=== PATIENT | female | born 1940 | race Caucasian/White ===

== ENCOUNTER 2017-05-30 18:33 | Emergency (ER) | payer MEDICARE, OTHER ==
[2017-05-30 18:43] VITALS: BP 127/74
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
--- NOTE | 2017-05-30 19:59 | RAD ---
Indication: Fall, neck pain. CT of the cervical spine was obtained in the axial plane. Sagittal and coronal reconstructed images were obtained. The skull base to restrict mastoid air cells and middle ear cavity to be well aerated. No fracture is noted. At C2-C3, C3-C4 there is no fracture. There is degenerative changes of the facet joints bilaterally at C3-C4. At C4-C5 minimal grade 1 spondylolisthesis is noted. Marked left facet hypertrophy is noted with left foraminal stenosis. C5-C6 spondylitic ridge flattens the thecal sac. No central or foraminal stenosis is noted. At C6-C7 spondylitic ridge flattens the thecal sac. No central foraminal stenosis is noted. At C7-T1 and T1-T2 no disc protrusion is identified. The lung apices are unremarkable. IMPRESSION: Multilevel degenerative disc disease without definite evidence of fracture.
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
== END 2017-05-30 20:40 | disposition home or self-care (01) ==
LOC: UCEAST 18:33
DX: H93.92 Unspecified disorder of left ear (principal); V89.2XXA Person injured in unspecified motor-vehicle accident, traffic, initial encounter; G20 Parkinson's disease
CPT/HCPCS: 70450; 71020; 72125; 99211; G0463

== ENCOUNTER 2019-12-03 16:03 | Inpatient (IN) | payer MEDICARE, OTHER ==
--- NOTE | 2019-12-03 16:20 | ED ---
Complex/Multi-Sys Presentation - HPI Summary HPI Summary: 79 year old F presenting to [facility] with a chief complaint of being on the floor secondary to a fall since possibly 3 days ago. The patient rates the pain 0/10 in severity. Symptoms aggravated by nothing. Symptoms alleviated by nothing. Patient denies any headache, back pain, abdominal pain, vomiting, diarrhea, or dysuria. The patient does not remember falling. Medication list reviewed. Allergy list reviewed. - History Of Current Complaint Time Seen by Provider: 12/03/19 16:08 Hx Obtained From: Patient Onset/Duration: Sudden Onset Timing: Days Aggravating Factor(s): None Alleviating Factor(s): None Associated Signs And Symptoms: Negative: Headache, Vomiting, Diarrhea, Abdominal Pain, Back Pain, Dysuria - Allergies/Home Medications Allergies/Adverse Reactions: Allergies Allergy/AdvReac Type Severity Reaction Status Date / Time No Known Allergies Allergy Verified 05/30/17 18:41 Home Medications: Home Medications Atenolol TAB* [Tenormin TAB*] 25 mg PO QPM 07/13/12 [History Confirmed 12/03/19] amLODIPine TAB* [Norvasc TAB*] 5 mg PO QPM 07/13/12 [History Confirmed 12/03/19] Amitriptyline TAB* [Elavil TAB*] 25 mg PO BEDTIME 12/03/19 [History Confirmed ] Carbidopa/Levodop 25/100 MG(*) [Sinemet 25/100 TAB(*)] 1.5 tab PO TID 12/03/19 [ History Confirmed 12/03/19] Pregabalin 100 mg CAP (*) [Lyrica 100 mg CAP (*)] 100 mg PO BEDTIME 12/03/19 [ History Confirmed 12/03/19] Pregabalin [Lyrica] 75 mg PO BID 12/03/19 [History Confirmed 12/03/19] carBAMazepine TAB(*) [TEGretol TAB(*)] 200 mg PO BID 12/03/19 [History Confirmed 12/03/19] PMH/Surg Hx/FS Hx/Imm Hx Endocrine/Hematology History: Denies: Hx Diabetes Cardiovascular History: Reports: Hx Hypertension - ON DAILY MED Denies: Hx Pacemaker/ICD Respiratory History: Denies: Hx Asthma History: Denies: Hx Dialysis, Hx Renal Disease Musculoskeletal History: Reports: Hx Arthritis - BRUNO KNEES, Hx Bursitis - R KNEE Denies: Hx Osteoporosis Sensory History: Reports: Hx Contacts or Glasses - GLASSES Denies: Hx Hearing Aid Opthamlomology History: Reports: Hx Contacts or Glasses - GLASSES Neurological History: Reports: Other Neuro Impairments/Disorders - Parkinson's Psychiatric History: Denies: Hx Panic Disorder - Cancer History Hx Chemotherapy: No Hx Radiation Therapy: No - Surgical History Surgical History: Yes Surgery Procedure, Year, and Place: 1941 [facility]SILECTOMY [facility]. 1962 [place]. 1987 TOTAL HYSTERECTOMY [facility]. 1989 CARPAL TUNNEL R WRIST [facility]. JUL 2012 CATARACT. 2005 GROWTH REMOVED FROM EYE LID [facility] Hx Anesthesia Reactions: No - Family History Known Family History: Positive: Hypertension - Social History Alcohol Use: Rare Hx Substance Use: No Substance Use Type: Reports: None Hx Tobacco Use: No Smoking Status (MU): Never Smoked Tobacco Review of Systems Negative: Abdominal Pain, Vomiting, Diarrhea Negative: dysuria Musculoskeletal: Negative - Back pain Negative: Headache All Other Systems Reviewed And Are Negative: Yes Physical Exam - Summary Physical Exam Summary: Constitutional: Awake, no acute distress Skin: Multiple bruises over upper chest and left shoulder, pressure sores bilateral knees and pretibial region. HENT: Normocephalic; Atraumatic Eyes: Conjunctiva normal Neck: Musculoskeletal ROM normal neck. (-) JVD, (-) Stridor, (-) Tracheal deviation Cardio: Rhythm regular, rate normal, Heart sounds normal; Intact distal pulses; The pedal pulses are 2+ and symmetric. Radial pulses are 2+ and symmetric. (-) Murmur Pulmonary/Chest wall: Effort normal. (-) Respiratory distress, (-) Wheezes, (-) Rales Abd: Soft, (-) tenderness, (-) Distension, (-) Guarding, (-) Rebound Musculoskeletal: (-) Edema Lymph: (-) Cervical adenopathy Neuro: Alert, Oriented x2, no focal deficits, GCS 15 Psych: Mood and affect Normal Triage Information Reviewed: Yes Vital Signs Reviewed: Yes - Jaspal Coma Scale Best Eye Response: 4 - Spontaneous Best Motor Response: 6 - Obeys Commands Best Verbal Response: 5 - Oriented Coma Scale Total: 15 Procedures - Sedation Patient Received Moderate/Deep Sedation with Procedure: No Diagnostics - Laboratory Result Diagrams: 12/03/19 16:36 12/03/19 16:36 Lab Statement: Any lab studies that have been ordered have been reviewed, and results considered in the medical decision making process. - Radiology Chest x-ray Radiology Interpretation Completed By: ED Physician Summary of Radiographic Findings: NAD. ED physician has reviewed and interpreted this report. - CT Brain CT CT Interpretation Completed By: Radiologist Summary of CT Findings: 1. Stable calcified dural-based mass along the inferior aspect of the left. tentorium cerebella measuring a maximum of 1.6 cm, likely calcified meningioma. 2. There is stable age-related diffuse cerebral volume loss and chronic. microvascular ischemic disease. 3. No acute intracranial pathology. ED physician has reviewed this report. Cervical Spine CT CT Interpretation Completed By: Radiologist Summary of CT Findings: No acute cervical spine fracture or other acute traumatic CT pathology. ED physician has reviewed this report. - EKG 16:58 Cardiac Rate: NL - 88 BPM EKG Rhythm: Sinus Rhythm Summary of EKG Findings: No ischemic changes, QTc 569. Dr. Valentine has reviewed and interpreted this EKG. Complex Multi-Symp Course/Dx Course Of Treatment: 79 year old F presenting to [facility] with a chief complaint of being on the floor secondary to a fall since possibly 3 days ago. Physical exam findings: Awake, no acute distress, no focal deficits, A&O x2, GCS 15, multiple bruises over upper chest and left shoulder, pressure sores bilateral knees and pretibial region. An EKG reveals sinus rhythm rate of 88, no ischemic changes, QTc 569. CXR reveals, per ED physician, NAD. Brain CT reveals, per radiologist, 1. Stable calcified dural-based mass along the inferior aspect of the left tentorium cerebella measuring a maximum of 1.6 cm, likely calcified meningioma. 2. There is stable age-related diffuse cerebral volume loss and chronic microvascular ischemic disease. 3. No acute intracranial pathology. Cervical Spine CT reveals, per radiologist, no acute cervical spine fracture or other acute traumatic CT pathology. Laboratory results with no significant abnormalities except for a WBC of 13.8, RBC of 4.95, Hgb of 16.5, Hct of 48, MCH of 33, absolute neuts of 11.6, absolute monos of 1.2, sodium of 146, BUN of 44, BUN/creatinine ratio of 48.4, glucose of 138, AST of 75, ALT of 56, total creatinine kinase of 1628, carbamazepine of 2.3. In the ED course, the patient was given normal saline. We discussed patient care with Dr. Mckenzie at 18:35 who recommended admission. Patient will be admitted. The patient is agreeable with this plan. - Diagnoses Provider Diagnoses: Fall, Dehydration, Rhabdomyolysis - Physician Notifications Discussed Care Of Patient With: Camille Mckenzie Time Discussed With Above Provider: 18:35 Instructed by Provider To: Other - Discussed with Dr. Mckenzie who accepts the patient for admission. - Critical Care Time Critical Care Statement: Critical care time is provided exclusive of any time spent performing procedures. Discharge ED - Sign-Out/Discharge Documenting (check all that apply): Patient Departure - Discharge Plan Condition: Stable Disposition: ADMITTED TO [facility] Referrals: Nohelia Mcdonald MD [Primary Care Provider] - - Billing Disposition and Condition Condition: STABLE Disposition: Admitted to [facility] - Attestation Statements Document Initiated by Scribe: Yes Documenting Scribe: Rekha Ramirez Provider For Whom Scribe is Documenting (Include Credential): Reed Valentine DO Scribe Attestation: Rekha eLwis scribed for Reed Valentine DO on 12/03/19 at 1914. Scribe Documentation Reviewed: Yes Provider Attestation: The documentation as recorded by the beatrisibeRekha accurately reflects the service I personally performed and the decisions made by me, Reed Valentine DO Status of Scribe Document: Viewed
[2019-12-03] MEDS ORDERED: NS 0.9% 1000 ML** 1,000 ML IV ONE ×2 (16:22→16:50)
[2019-12-03 16:42] LABS: ABS Basophils 0.1 10^3/ul (0-0.2); ABS Monocytes 1.2 10^3/ul (0-0.8); ABS Neutrophils 11.6 10^3/ul (1.5-7.7); Hematocrit 48 % (35-47); Hemoglobin 16.5 g/dL (12.0-16.0); Lymphocyte % 7.1 %; Mean Corpuscular HGB Conc 35 g/dL (31-36); Mean Corpuscular Hemoglobin 33 pg (27-31); Mean Corpuscular Volume 96 fL (80-97); Mean Platelet Volume 7.9 fL (7.4-10.4); Nucleated Red Blood Cells % 0.1; Platelet Count 260 10^3/uL (150-450); Red Blood Count 4.95 10^6 /uL (3.70-4.87); Red Cell Distribution Width 14 % (10-15); White Blood Count 13.8 10^3/uL (3.5-10.8)
[2019-12-03 16:59] LABS: Albumin 4.2 g/dL (3.2-5.2); Albumin/Globulin Ratio 1.2 (1-3); BUN/Creatinine Ratio 48.4 (8-20); Calcium 9.7 mg/dL (8.6-10.3); EGFR Non-African American 59.5 (>60); Globulin 3.4 g/dL (2-4); Total Protein 7.6 g/dL (6.4-8.9)
[2019-12-03 17:00] LABS: Troponin I 0.02 ng/mL (<0.03)
[2019-12-03 17:05] LABS: Carbamazepine 2.3 mcg/mL (4.0-12.0)
[2019-12-03 17:14] LABS: Alcohol < 10 mg/dL (<10)
[2019-12-03 17:50] LABS: Magnesium 2.5 mg/dL (1.9-2.7)
[2019-12-03 19:13] LABS: Urine Appearance Cloudy; Urine Bilirubin Negative (Negative); Urine Blood 2+ (Negative); Urine Color Amber; Urine Glucose Negative (Negative); Urine Ketones 1+ (Negative); Urine Nitrite Positive (Negative); Urine Protein 1+(30 mg/dL) (Negative); Urine Specific Gravity 1.024 (1.010-1.030); Urine Urobilinogen Negative (Negative)
[2019-12-03 19:17] LABS: Urine Bacteria 3+ (Absent); Urine Red Blood Cell 3+(>10/hpf) (Absent); Urine Squamous Epithelial Cell Present (Absent); Urine White Blood Cell 3+(>20/hpf) (Absent)
[2019-12-03] MEDS ORDERED: Acetaminophen TAB* 325 MG PO PRN (19:20)
[2019-12-03] MEDS ORDERED: NS 0.9% 1000 ML** 1,000 ML IV SCH (19:30)
[2019-12-03] MEDS ORDERED: cefTRIAXone(*) 1 GM in NS 0.9% 50 ML* 50 ML IVPB ONE (20:00)
--- NOTE | 2019-12-03 22:01 | HP ---
CC: Dr. Nohelia Mcdonald* HISTORY AND PHYSICAL: DATE OF ADMISSION: 12/03/19 PROVIDER: Deneen Onofre NP PRIMARY CARE PROVIDER: Nohelia Mcdonald MD ATTENDING PHYSICIAN WHILE IN THE HOSPITAL: Obie Zazueta MD* (dictated by Deneen Onofre NP). CHIEF COMPLAINT: 1. Falls. 2. Confusion. HISTORY OF PRESENT ILLNESS: Ms. Pritchard is an 79-year-old female with past medical history significant for Parkinson's, hypertension, periodic confusion, extremity pain who presented to the emergency room by EMS after being found on the floor of her apartment. The patient is confused and a very poor historian. In review of the emergency room records, the patient was last seen on Tuesday by her son and it is unclear how long the patient was on the floor. The patient does report that she fell Tuesday afternoon and has been on the floor since. I did speak to the son in great length. He reports that he last saw his mom Tuesday. At that time, she did not have any evidence of bruising that he could tell. He reports that the patient's daughter talked to her Tuesday at 3:10. The patient at that time said that she was tired and will call her back later. The daughter tried to call again at approximately 5 p.m., but there was no answer. The son does report that the patient was down lying in a fair amount of urine that had soaked into the carpet. When he arrived to the apartment, it was in disarray. There were multiple items, stands and tables that were tipped over. He reports that the patient kept telling him that he needed to get in the yellow carriage and everything would be okay. The son also reports the patient kept calling him Nohelia. I saw and evaluated the patient at the bedside. She is alert. She does have periods of confusion. She denies any chest pain, cough, hemoptysis, shortness of breath. No nausea, vomiting, diarrhea, abdominal pain, gross hematuria, dysuria. She denies any weakness or dysphagia. She has no complaints of pain. While in the emergency room, she had routine lab work drawn. She was found to have a CK of 1628 and a white count of 13.8; urine which is highly suspicious for urinary tract infection. Due to these findings, Hospital Medicine was asked to see and evaluate her for admission. PAST MEDICAL HISTORY: Significant for: 1. Parkinson disease. 2. Hypertension. 3. Periodic confusion. 4. Extremity pain. PAST SURGICAL HISTORY: Obtain from unknown if patient had other surgeries. 1. Hysterectomy. 2. Carpal tunnel surgery. Any other surgeries, the son does not know. HOME MEDICATIONS: Include: 1. Lyrica 75 mg b.i.d., 100 mg at bedtime. 2. Tegretol 200 mg once daily, was supposed to increase to b.i.d. on 11/23/19, unclear if the patient did. 3. Carbidopa/levodopa 25/100 one tablet t.i.d. 4. Amitriptyline 20 mg at bedtime. 5. Norvasc 5 mg po daily 6. Atenolol 25 mg po daily ALLERGIES: To TRAMADOL. FAMILY HISTORY: No reported history of coronary artery disease, diabetes, or cancer. SOCIAL HISTORY: Denies any tobacco, alcohol, or illicit drug use. The patient lives alone. She walks with a walker. Surrogate decision maker in the event she is unable to make her own decisions is her son, Isma. She is a DNR/DNI. Her MOLST form was completed and placed on the chart. REVIEW OF SYSTEMS: A 14-point review of systems was completed. All pertinent positives were mentioned in the HPI. This is a limited review of systems as the patient does have some underlying confusion. PHYSICAL EXAMINATION GENERAL: At this time, Ms. Pritchard is alert. She is resting on the stretcher in the emergency room. She appears dehydrated with multiple areas of ecchymosis and abrasions. She is in no acute distress. VITAL SIGNS: Blood pressure 151/82, heart rate 86, respirations are 22, O2 saturation 94%, temperature was 97.9. HEENT: Head is atraumatic, normocephalic. Eyes: EOMs are intact. Sclerae anicteric and not pale. Oral mucosa is moist. NECK: Supple. LUNGS: Clear to auscultation bilaterally. No wheezes, rales, or rhonchi. CARDIAC: S1, S2. Regular rate and rhythm. No rubs or gallops. ABDOMEN: Soft and nontender. Bowel sounds are present x4. EXTREMITIES: She is able to move all 4 extremities. There is no clubbing or cyanosis. NEUROLOGIC: She is awake and alert. She is oriented to person and place. She is confused to situation and time. She is noted to have footdrop on the left. Handgrips are equal. There is no pronator drift. No leg drift. Tongue is midline. SKIN: She has multiple ecchymotic areas noted to all 4 extremities with multiple abrasions. She does have redness noted to her lower back. No open sores on her coccyx. She has multiple abrasions on her right arm. She has ecchymosis on her left forehead. DIAGNOSTIC STUDIES/LAB DATA: WBCs are 13.8, RBCs 4.95, hemoglobin 16.5, hematocrit is 48, platelet count is 260. Sodium 146, potassium 4.0, chloride 109, carbon dioxide was 28, anion gap was 9, BUN was 44, creatinine 0.91, glucose was 138, calcium 9.7, magnesium 2.5. Total bilirubin 1.00, ASTs were 75 , ALTs were 56, alkaline phosphatase was 61. Total CK is 1628. Urine protein was 1+, ketones are 1+, blood is 2+, nitrites are positive, bilirubin and urobilinogen were both negative, leukocyte esterase is 1+, wbc's are 3+, rbc's are 3+, squamous epithelial cells are present, bacteria was 3+. Urine carbamazepine was 2.3. Serum alcohol was less than 10. 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 There is a stable age-related diffuse cerebral volume loss and chronic microvascular ischemic disease. No acute intracranial pathology. She had a CT of the C-spine, no acute cervical spine fracture or other acute traumatic CT pathology. She had an electrocardiogram Sinus rhythm rate 88. ASSESSMENT AND PLAN: Ms. Pritchard is an 79-year-old female with a past medical history significant for Parkinson's, hypertension, periodic confusion, and chronic extremity pain who presented to the emergency room after being found on the floor for an unknown time. She will be admitted for: 1. Rhabdomyolysis. The patient does have a CK that is 1628. She did receive 2 L of normal saline in the emergency room. It is unclear how long the patient had been lying on the floor. The patient reports that she fell Tuesday afternoon, but son reports that she did talk to her daughter on Tuesday afternoon at approximately 3 o'clock. The patient does have multiple ecchymotic areas in different staging as well as multiple abrasions to her knees and right arm that appear to be from scooting on the floor. The son does report that she was found lying in a large amount of urine that had soaked into the rug. She did have a CT of the head and C-spine that showed no acute pathology. I will get a PT and OT evaluation. 2. Fall. The patient has multiple causes of her fall. At this time it is unclear the cause of her fall. It could be related to mechanical fall from her underlying parkinson's, syncope, medications changes, polypharmacy or UTI, I suspect her fall is likely related to underlying Parkinson disease complicated by UTI. I will get a PT and OT evaluation. 3. Urinary tract infection. The patient does appear to have a urinary tract infection. She does have 3+ bacteria and nitrites in her urine as well as rbc' s and wbc's. I will place her on ceftriaxone 1 g q.24 hours. I will also continue with IV hydration. I suspect that this could be contributing to her falls as well. 4. Dehydration. She appears for be very dehydrated, as evidence by hypernatremia, and hemoconcentrated CBC. I will give her 2 more liters of IVF fluids. Repeat cbc and bmp in the AM. 5. Parkinson's. I will continue on carbidopa/levodopa. 6. Leg pain. I will continue her Lyrica and Tegretol starting tomorrow. 7. Hypertension. It appears that the patient is not taking her antihypertensive medications at home. I will hold on resuming these as the patient has not filled her atenolol or amlodipine since April 2019. 8. FEN. She can have regular diet. 9. Code status. She is a DNR/DNI. MOLST form is completed and placed on the chart. The patient expressed her wish to be a DNR. This was confirmed with her son, Isma, who also confirmed that she wishes to be a DNR/DNI. 10. DVT prophylaxis. I will place her on Lovenox subcu. TIME SPENT: Time spent on this admission was 60 minutes, greater than half that time was spent at the bedside reviewing events leading thus far to her hospitalization, performing physical exam, and reviewing my plan of care. I have discussed this with my attending, Dr. Obie Zazueta; he is in agreement with my plan. DENEEN ONOFRE, LUIS ANGEL [id number]/CPS #: [id number] EDIN
[2019-12-03] MEDS: Pregabalin 25 mg CAP (*) PO SCH (22:59)
[2019-12-03] MEDS: Carbidopa/Levodop 25/100 MG TAB(*) PO SCH (23:00)
[2019-12-03] MEDS: Lactated Ringers 1000 ML Bag* 1,000 ML IV SCH (23:05)
[2019-12-04] MEDS: Lactated Ringers 1000 ML Bag* 1,000 ML IV SCH (06:02)
[2019-12-04 07:12] LABS: ABS Lymphocytes 1.5 10^3/ul (1.0-4.8); ABS Monocytes 0.9 10^3/ul (0-0.8); ABS Neutrophils 6.8 10^3/ul (1.5-7.7); Eosinophil % 0.1 %; Hematocrit 39 % (35-47); Hemoglobin 13.3 g/dL (12.0-16.0); Lymphocyte % 16.2 %; Mean Corpuscular HGB Conc 34 g/dL (31-36); Mean Corpuscular Hemoglobin 33 pg (27-31); Mean Corpuscular Volume 96 fL (80-97); Mean Platelet Volume 8.1 fL (7.4-10.4); Platelet Count 208 10^3/uL (150-450); Red Cell Distribution Width 14 % (10-15); White Blood Count 9.2 10^3/uL (3.5-10.8)
[2019-12-04 07:26] LABS: BUN/Creatinine Ratio 42.4 (8-20); Calcium 8.5 mg/dL (8.6-10.3); EGFR African American 118.7 (>60); EGFR Non-African American 98.1 (>60); Potassium 3.3 mmol/L (3.5-5.0)
[2019-12-04] MEDS: Pregabalin 25 mg CAP (*) PO SCH ×2 (08:21→20:25)
[2019-12-04] MEDS: carBAMazepine TAB(*) 200 MG PO SCH (08:21)
[2019-12-04] MEDS: Carbidopa/Levodop 25/100 MG TAB(*) PO SCH ×3 (08:21→20:24)
--- NOTE | 2019-12-04 09:12 | PN ---
Subjective Date of Service: 12/04/19 Interval History: Elderly woman alert and oriented. Pt easily recalls why she is in the hospital. pt denies any in abdomen. Denies any pain with urination. Pt denies headaches, CP, SOB, N/V/D. Family History: Unchanged from Admission Social History: Unchanged from Admission Past Medical History: Unchanged from Admission Objective Active Medications: Acetaminophen (Tylenol Tab*) 650 mg PO Q6H PRN PRN Reason: MILD PAIN or TEMP > 100.4 Amitriptyline HCl (Elavil Tab*) 20 mg PO BEDTIME [facility] Carbamazepine (Tegretol Tab(*)) 200 mg PO DAILY [facility] Last Admin: 12/04/19 08:21 Dose: 200 mg Carbidopa/Levodopa (Sinemet 25/100 Tab(*)) 1.5 tab PO TID [facility] Last Admin: 12/04/19 08:21 Dose: 1.5 tab Ceftriaxone Sodium 1 gm/ (Sodium Chloride) 50 mls @ 100 mls/hr IVPB Q24H [facility] Lactated Ringer's (Lactated Ringers 1000 Ml Bag*) 1,000 mls @ 150 mls/hr IV PER RATE [facility] Stop: 12/05/19 03:39 Last Admin: 12/04/19 06:02 Dose: 150 mls/hr Pregabalin (Lyrica 25 Mg Cap (*)) 75 mg PO BID [facility] Last Admin: 12/04/19 08:21 Dose: 75 mg Pregabalin (Lyrica 100 Mg Cap (*)) 100 mg PO BEDTIME [facility] Vital Signs - 8 hr 12/04/19 12/04/19 12/04/19 02:09 02:59 07:27 Temperature 97.5 F 97.7 F Pulse Rate 75 74 Respiratory 20 16 16 Rate Blood Pressure 137/72 147/70 (mmHg) O2 Sat by Pulse 99 97 Oximetry 12/04/19 08:21 Temperature Pulse Rate Respiratory 18 Rate Blood Pressure (mmHg) O2 Sat by Pulse Oximetry Oxygen Devices in Use Now: None Appearance: Elderly woman appearing stated age sitting up in bed eating breakfast and watching TV. Does not appear to be in any distress. Eyes: No Scleral Icterus, PERRLA Ears/Nose/Mouth/Throat: NL Teeth, Lips, Gums, Clear Oropharnyx, Mucous Membranes Moist, - - Does not have dentures in hospital Neck: NL Appearance and Movements; NL JVP, Trachea Midline, No Thyroid Enlargement, Masses Respiratory: Symmetrical Chest Expansion and Respiratory Effort, Clear to Auscultation Cardiovascular: NL Sounds; No Murmurs; No JVD, RRR, No Edema Abdominal: NL Sounds; No Tenderness; No Distention, No Hepatosplenomegaly, - - No CVA tenderness Lymphatic: No Cervical Adenopathy Extremities: No Clubbing, Cyanosis Skin: No Rash or Ulcers, No Nodules or Sclerosis Neurological: Alert and Oriented x 3, NL Sensation, NL Muscle Strength and Tone Lines/Tubes/Other Access: Clean, Dry and Intact Peripheral IV Nutrition: Taking PO's Result Diagrams: 12/04/19 07:01 12/04/19 07:01 Assess/Plan/Problems-Billing Assessment: 79 Yof patient with hx significant for Parkinsons, HTN, and Periodic confusion presents to ED S/P fall with unknown downtime and confusion. - Patient Problems (1) UTI (urinary tract infection) Current Visit: Yes Comment: -UA +Nitrates and 1+ Leuks -Ceftriaxone 1gm Q24 IV -Pt mentation is improved- A + O x 3 presently. (2) Rhabdomyolysis Current Visit: Yes Comment: -Unknown downtime after fall, found by son- confused and incontinent. Multiple areas of ecchymosis with varying levels of healing. -Improving with IVF- CK started at 1628 is now 863. -Cr 0.59 (3) Fall Current Visit: Yes Comment: -Arrives to hospital after fall with unknown downtime. -PT/OT evaluation today. -Possibly related to worsening parkinsons or UTI (4) Dehydration Current Visit: Yes Comment: -Pt receiving LR IV -Hypernatremia improving, decreased from 146-144 today. However potassium is decreasing to 3.3 will replace orally. (5) HTN (hypertension) Current Visit: Yes Comment: -Will continue monitoring- Pt normotensive presently with episodes of HTN. Pt not currently treated as outpatient. Has not filled meds since 04/2019 (6) Parkinsons Current Visit: Yes Comment: -Continue carbadopa/Levodopa (7) Leg pain Current Visit: Yes Comment: -Chronic pain -Continue lyrica and tegretol (8) DVT prophylaxis Current Visit: Yes Comment: -Lovenox SQ -SCD's (9) DNR (do not resuscitate) Current Visit: Yes Comment: HUMZA on chart
[2019-12-04] MEDS ORDERED: Potassium Chlor TAB* 20 MEQ TAB.ER PO ONE (09:23)
[2019-12-04] MEDS: Enoxaparin(*) 60 MG/0.6 ML SYR SUBCUT SCH (10:12)
--- NOTE | 2019-12-04 16:53 | CONSULT ---
Subjective Date of Service: 12/04/19 Interval History: Ms. Pritchard is an 79 yo female with PMH significant for Parkinson's disease, HTN , periodic confusion, and chronic LE pain; who presented to the emergency room after being found on the floor. She was last seen on Tuesday, November 29 by family and then was found on the floor on TuesdayDecember 02. He daughter talked to her on Tuesday afternoon, and she reported being tired, but didn't answer the phone later in the evening when she tried to call back. Her son found her laying on the floor in urine. She was found to have an elevated CK, leukocytosis and suspected to have a UTI. She presented to the hospital with with multiple areas of ecchymosis and abrasions to her extremities and erythema to the lower back. Patient seen and examined at bedside. Verbal consent for wound consultation and photographs, Family History: Unchanged from Admission Social History: Unchanged from Admission Past Medical History: Unchanged from Admission Review of Systems - Measurements Intake and Output: Intake and Output Last 24 Hours 12/02/19 12/03/19 12/04/19 12/05/19 06:59 06:59 06:59 06:59 Intake Total 3002 360 Output Total 0 Balance 3002 360 Weight 153 lb Intake: IV Fluids 3002 LR 1002 Oral 0 360 Output: Urine 0 Other: Estimated Void Medium - Review of Systems Constitutional Symptoms: Negative: Fever, Other - Chills Dermatology: Positive: Other - Multiple wounds Objective Active Medications: Acetaminophen (Tylenol Tab*) 650 mg PO Q6H PRN Reason: MILD PAIN or TEMP > 100.4 Amitriptyline HCl (Elavil Tab*) 20 mg PO BEDTIME [facility] Carbamazepine (Tegretol Tab(*)) 200 mg PO DAILY [facility] Carbidopa/Levodopa (Sinemet 25/100 Tab(*)) 1.5 tab PO TID [facility] Enoxaparin Sodium (Lovenox(*)) 60 mg SUBCUT Q24H [facility] Ceftriaxone Sodium 1 gm/ (Sodium Chloride) 50 mls @ 100 mls/hr IVPB Q24H [facility] Lactated Ringer's (Lactated Ringers 1000 Ml Bag*) 1,000 mls @ 150 mls/hr IV PER RATE [facility] Stop: 12/05/19 03:39 Pregabalin (Lyrica 25 Mg Cap (*)) 75 mg PO BID [facility] Pregabalin (Lyrica 100 Mg Cap (*)) 100 mg PO BEDTIME [facility] Vital Signs 12/04/19 12/04/19 11:00 15:47 Temperature 97.8 F 98.0 F Pulse Rate 85 84 Respiratory 16 19 Rate Blood Pressure 120/61 124/62 (mmHg) O2 Sat by Pulse 97 Oximetry Oxygen Devices in Use Now: None Appearance: NAD, sitting up in a chair Ears/Nose/Mouth/Throat: Mucous Membranes Moist Respiratory: Symmetrical Chest Expansion and Respiratory Effort Skin: - - See skin note below Neurological: Alert and Oriented x 3 Nutrition: Taking PO's Result Diagrams: 12/05/19 10:19 12/05/19 10:19 Additional Lab and Data: Above labs were pulled into the note, when the note was edited prior to signing. See labs below from day of consultation. Laboratory Tests 12/03/19 12/04/19 12/04/19 16:36 07:01 07:01 WBC 9.2 Hgb 13.3 Hct 39 Plt Count 208 Sodium 144 Potassium 3.3 L Chloride 112 H Carbon Dioxide 25 BUN 25 H Creatinine 0.59 Glucose 101 H Total Protein 7.6 Albumin 4.2 Skin Deviation Note - Skin Deviation Findings Left anterior and lateral knee - There are multiple areas of dry eschar. Moving medial to lateral wounds measure; 5 cm x 4 cm, 6 cm x 1.2 cm, 1.6 cm x 1.9 cm, and 1.6 cm x 1.4 cm. The wound bases area 100% dry brown colored eschar. There is no drainage. The surrounding skin is intact. Not pictured well in above picture: Ecchymosis to the upper anterior benedict. Not pictured: Lateral leg wound, measures 2 cm x 1.3 cm. The wound bases area 100% dry brown colored eschar. There is no drainage. The surrounding skin is intact. Left lateral ankle and dorsal aspect of the foot - There are 2 areas of dry eschar. Lateral ankle, measures 1 cm x 1 cm. Dorsal aspect of the foot over the 1st metatarsal, measures 1 cm x 1 cm. The wound bases area 100% dry brown colored eschar. There is no drainage. The surrounding skin is intact. Right lateral foot and ankle - There are 2 areas of dry eschar. The lateral ankle measures 2.1 cm x 0.9 cm and the area near the 5th metatarsal measures 0.8 cm x 0.4. The wound bases area 100% dry brown colored eschar. There is no drainage. The surrounding skin is intact. Right anterior knee - There are multiple areas of dry eschar. The larger proximal wound measures 7.7 cm x 6.8 cm, cluster of 3 wounds distal measure 7.8 cm x 1.1 cm, see picture below for lateral wounds. The wound bases area 100% dry brown colored eschar. There is no drainage. The surrounding skin is intact. Right lateral knee - There are multiple areas of dry eschar. Lateral/anterior wound measures 3 cm x 3.7 cm, and the lateral wound measures 4.3 cm x 2.8 cm. See above for anterior wounds. The wound bases area 100% dry brown colored eschar. There is no drainage. The surrounding skin is intact. Right elbow - There are multiple area of dry eschar. The larger wound measures 6 cm x 6 cm, cluster towards the lateral arm measures 6.7 cm x 2.5cm. The wound bases area 100% dry brown colored eschar. There is no drainage. The surrounding skin is intact. Right forearm - There is a cluster of multiple small areas of dry eschar. The cluster measures 3 cm x 2.2 cm. The wound bases area 100% eschar. There is no drainage. The surrounding skin is intact. Wound Problem/Plan Assessment: Ms. Pritchard is an 79 yo female with PMH significant for Parkinson's disease, HTN , periodic confusion, and chronic LE pain; who presented to the emergency room after being found on the floor. She was last seen on November 29 by family and then was found on the floor on TuesdayDecember 02. He daughter talked to her on Tuesday afternoon, and she reported being tired, but didn't answer the phone later in the evening when she tried to call back. Her son found her laying on the floor in urine. She was found to have an elevated CK, leukocytosis and suspected to have a UTI. She presented to the hospital with with multiple areas of ecchymosis and abrasions to her extremities and erythema to the lower back. 1. Multiple areas of eschar to extremities. Secondary to trauma from a fall on carpet. Keep open to air and dry. If she develops drainage or the wounds open apply a non adherent dressing and change daily or as needed for drainage. 2. Rhabdomyolysis after a fall at home. 3. Parkinson's disease. 4. Nutrition. Recommend meeting minimal nutrition requirements for wound healing (Protein 1.3-1.5 gm/kg per day and Calories 30-35 kcal/kg per day). Regular diet. 5. Code Status. DNR. 6. Disposition. Inpatient, disposition per primary medicine team. TIME SPENT: Time for this wound consultation was 30 minutes and 20 minutes was spent with the patient discussing past medical history; assessing, measuring, and photographing the wounds. Is Patient a Wound Clinic Patient: No Attending: Kaycee Patton
[2019-12-04] MEDS: Amitriptyline TAB* 10 MG PO SCH (20:24)
[2019-12-04] MEDS: Pregabalin 100 mg CAP (*) PO SCH (20:25)
[2019-12-04] MEDS: cefTRIAXone(*) 1 GM in NS 0.9% 50 ML* 50 ML IVPB SCH (20:26)
[2019-12-05 10:39] LABS: ABS Basophils 0.1 10^3/ul (0-0.2); ABS Lymphocytes 1.7 10^3/ul (1.0-4.8); ABS Monocytes 0.7 10^3/ul (0-0.8); ABS Neutrophils 3.5 10^3/ul (1.5-7.7); Eosinophil % 0.8 %; Hematocrit 37 % (35-47); Hemoglobin 12.2 g/dL (12.0-16.0); Lymphocyte % 28.3 %; Mean Corpuscular HGB Conc 34 g/dL (31-36); Mean Corpuscular Hemoglobin 33 pg (27-31); Mean Corpuscular Volume 97 fL (80-97); Mean Platelet Volume 7.9 fL (7.4-10.4); Nucleated Red Blood Cells % 0.1; Platelet Count 187 10^3/uL (150-450); Red Blood Count 3.75 10^6 /uL (3.70-4.87); Red Cell Distribution Width 14 % (10-15)
[2019-12-05] MEDS: Pregabalin 25 mg CAP (*) PO SCH ×2 (10:44→20:28)
[2019-12-05] MEDS: carBAMazepine TAB(*) 200 MG PO SCH (10:45)
[2019-12-05] MEDS: Carbidopa/Levodop 25/100 MG TAB(*) PO SCH ×3 (10:45→20:26)
[2019-12-05] MEDS: Enoxaparin(*) 60 MG/0.6 ML SYR SUBCUT SCH (10:47)
[2019-12-05 10:56] LABS: BUN/Creatinine Ratio 27.5 (8-20); Calcium 8.5 mg/dL (8.6-10.3); EGFR African American 99.1 (>60); EGFR Non-African American 81.9 (>60); Potassium 3.5 mmol/L (3.5-5.0)
--- NOTE | 2019-12-05 13:32 | DS ---
CC: Dr. Nohelia Mcdonald* DISCHARGE SUMMARY: DATE OF ADMISSION: 12/03/19 DATE OF DISCHARGE: 12/05/19 PROVIDER: Vinay Pitt NP PRIMARY CARE PROVIDER: Dr. Nohelia Mcdonald. ATTENDING PHYSICIAN WHILE IN THE HOSPITAL: Dr. Melina Rose* (dictated by Vinay Pitt NP). PRIMARY DIAGNOSIS: Urinary tract infection. SECONDARY DIAGNOSES: 1. Rhabdomyolysis. 2. Parkinson's. 3. Leg pain. 4. Hypertension. STUDIES WHILE IN THE HOSPITAL: 1. 12/03/19, chest AP portable. No evidence for acute disease. 2. CT spine cervical without contrast. No acute cervical spine fracture or other acute traumatic CT pathology. 3. CT brain without. 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 There is a stable age-related diffuse cerebellar volume loss and chronic microvascular ischemic disease. No acute intracranial pathology. HISTORY OF PRESENT ILLNESS AND HOSPITAL COURSE: Ms. Pritchard is an 79-year-old female patient with past medical history significant for Parkinson's, hypertension, periodic confusion, extremity pain, presented to the ER via EMS after being found on the floor of her apartment, confused and incontinent and judging by multiple bruises and abrasions in varying stages of healing, it would appear that the patient falls frequently at home. The patient presents with multiple areas of eschar on bilateral knees and right arm that are well- healing presently, not appear to be infected. While in the ER, the patient was found to be hypernatremic at 146. The patient also found to have 3+ leukocytes, positive for nitrites, and blood in urine indicating urinary tract infection. UTI was treated with ceftriaxone 1 g q. 24 hours. Hypernatremia, suspected that resulted from dehydration, which the patient was treated with normal saline and hypernatremia is resolved after receiving 2 L of lactated Ringer's. The patient's ambulatory status was assessed by Physical Therapy and they recommend skilled physical therapy continued upon discharge. The patient's mental status has returned to normal. The patient is fully alert and oriented x3. The patient does recall why she is in the hospital. The patient is stable for discharge at this time. PHYSICAL EXAMINATION: Head is atraumatic, normocephalic. No scleral icterus. Pupils are PERRL. Normal teeth, lips, gums. Clear oropharynx. Mucous membranes moist. Does not have dentures in the hospital. Neck is supple, normal in appearance and movements. Trachea is midline. No thyroid enlargement or masses. Symmetrical chest expansion and respiratory effort clear to auscultation in all lung [place]. Cardiovascular: Normal sounds. No murmurs. No JVD. Rhythm and rate regular. No edema. Normal bowel sounds x4 quadrants. No tenderness or distention noted. No hepatosplenomegaly. No CVA tenderness. No cervical adenopathy. No clubbing or cyanosis. No rash or ulcers. No nodules. No sclerosis. The patient is alert and oriented x3, normal sensation, normal muscle strength and tone. Ms. Pritchard is stable for discharge. Most recent vital signs as follows: 98.2 for temp, 76 for heart rate, 16 respirations, 96% on room air, 95/69 for blood pressure. DISCHARGE MEDICATIONS: Changed or Added: Cefdinir 300 mg p.o. b.i.d. x5 days. Continued: 1. Amitriptyline 20 mg p.o. at bedtime. 2. Carbamazepine 200 mg p.o. daily. 3. Carbidopa/levodopa 25/100, 1.5 tabs p.o. t.i.d. 4. Pregabalin 100 mg p.o. at bedtime. 5. Pregabalin 75 mg p.o. b.i.d. DISCHARGE PLAN: Ms. Pritchard will be discharged home. Activity will be as tolerated. Be sure you are using walker while ambulating. You will have Physical Therapy coming to your home to resume strength training and functional strength training. If your wounds start bleeding with activity, apply pressure until bleeding is stopped. New prescription for cefdinir 300 mg by mouth twice daily is sent to [facility]. You will be starting this medication today and continue for 5 more days. This medication is an antibiotic that will help eliminate your UTI, UTIs can cause confusion and weakness. You certainly need to take this medication as ordered for the next 5 days. You were dehydrated on arrival to the ER, it is important to you your fluid intake is increased and continue to help prevent future urinary tract infection and injury. If your blood fluid level drops due to inadequate intake of water, your blood pressure can become very low or blood pressure places a great risk for falls especially when changing positions. Return to the ER if you develop any severe headaches, chest pain, dizziness or any other concerning symptoms DISCHARGE CONDITION: Stable DISCHARGE DISPOSITION: Home. This is a summarized report of a short hospital stay and medical history. For further details, please see entire medical record TIME SPENT: Approximately 40 minutes was spent on this discharge. VINAY PITT, LUIS ANGEL [id number]/CPS #: [id number] EDIN
--- NOTE | 2019-12-05 14:36 | PN ---
Hospitalist Progress Note Date of Service: 12/05/19 Pt is unable to ambulate long distances even with wheeled walker. Wheelchair would assist greatly in performing ADL's within the home.
[2019-12-05] MEDS: Amitriptyline TAB* 10 MG PO SCH (20:26)
[2019-12-05] MEDS: cefTRIAXone(*) 1 GM in NS 0.9% 50 ML* 50 ML IVPB SCH (20:26)
[2019-12-05] MEDS: Pregabalin 100 mg CAP (*) PO SCH (20:29)
[2019-12-06] MEDS: carBAMazepine TAB(*) 200 MG PO SCH (09:28)
[2019-12-06] MEDS: Pregabalin 25 mg CAP (*) PO SCH (09:29)
[2019-12-06] MEDS: Carbidopa/Levodop 25/100 MG TAB(*) PO SCH ×2 (09:30→12:33)
[2019-12-06] MEDS ORDERED: Cefdinir cap* 300 MG CAP PO SCH (09:30)
[2019-12-06] MEDS ORDERED: Enoxaparin(*) 40 MG/0.4 ML SYR SUBCUT SCH (10:00)
[2019-12-06 11:37] VITALS: BP 128/77
== END 2019-12-06 15:33 | disposition home or self-care (01) | DRG 690 ==
LOC: ED 16:03 → MEDTELE 19:20
PROVIDERS: ADMIT Nurse Practitioner; ATTEND Internal Medicine
DX: N39.0 Urinary tract infection, site not specified (principal); M62.82 Rhabdomyolysis; E87.0 Hyperosmolality and hypernatremia; M79.606 Pain in leg, unspecified; Z66 Do not resuscitate; D32.0 Benign neoplasm of cerebral meninges; G20 Parkinson's disease; M17.0 Bilateral primary osteoarthritis of knee; S20.219A Contusion of unspecified front wall of thorax, initial encounter; S40.012A Contusion of left shoulder, initial encounter; I10 Essential (primary) hypertension; E86.0 Dehydration; L89.899 Pressure ulcer of other site, unspecified stage; B96.89 Other specified bacterial agents as the cause of diseases classified elsewhere; W18.30XA Fall on same level, unspecified, initial encounter; S00.83XA Contusion of other part of head, initial encounter; G89.29 Other chronic pain; Z91.81 History of falling; Z79.899 Other long term (current) drug therapy; Z90.710 Acquired absence of both cervix and uterus; Y92.039 Unspecified place in apartment as the place of occurrence of the external cause; Z88.8 Allergy status to other drugs, medicaments and biological substances
CPT/HCPCS: 36415; 70450; 71045; 72125; 80048; 80053; 80156; 80320; 81003; 81015; 82550; 83735; 84484; 85025; 87040; 87077; 87086; 87186; 93005; 99285; A9270-GY; G0480; J0696; J1650

== ENCOUNTER 2019-12-08 15:10 | Observation (INO) | payer MEDICARE, OTHER ==
--- OUTSIDE RECORDS SUMMARY | 2019-12-08 15:34 | XMS REPORT ---
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, idiopathic idiopathic PT neuropathy, neuropathy, [id number] unspecified unspecified Essential Essential Diagnosis Active Jose (primary) (primary) 09-12 Braden, hypertensio hypertensio PT n n [id number] Primary Primary Diagnosis Active Jose osteoarthri osteoarthri 09-12 Braden, tis, tis, PT unspecified unspecified [id number] ankle and ankle and foot foot Osteoarthri Osteoarthri Diagnosis Active Jose tis of tis of 09-12 Braden, knee, knee, PT unspecified unspecified [id number] Generalized Generalized Diagnosis Active Jose anxiety anxiety 09-12 Braden, disorder disorder PT [id number] Pure Pure Diagnosis Active Jose hyperglycer hyperglycer Braden, idemia idemia PT [id number] Trigger Trigger Diagnosis Active Jose finger, finger, Braden, unspecified unspecified PT finger finger [id number] 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, syndrome syndrome PT [id number] Unspecified Unspecified Diagnosis Active Jose sensorineur sensorineur Braden, 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 [id number] Other Other Diagnosis Active Jose amnesia amnesia Braden, PT 737761-8 Constipatio Constipatio Diagnosis Active Jose n, n, Braden, unspecified unspecified PT [id number] Anesthesia Anesthesia Diagnosis Active Jose of skin of skin Braden, PT 856175-3 Foreign Foreign Diagnosis Active Jose body in body in Braden, ear, ear, PT unspecified unspecified [id number] ear, ear, subsequent subsequent encounter encounter Other long Other long Diagnosis Active Jose term term Braden, (current) (current) PT drug drug [id number] therapy therapy Pain frequent Pain Mgmt Active 2020-0 Chantel pain 2-06 (Ira) 09:00: Reddy [id number] Respiratory dyspnea Respirator Active 2020-0 Chantel present y 2-06 (Ira) 09:00: Reddy [id number] Sensory impaired Sensory Active 2020-0 Chantel hearing 2-06 (Ira) 09:00: Reddy [id number] Integument skin Integument Active 2020-0 Chantel integrity 2-06 (Ira) risk 09:00: Reddy [id number] Elimination urinary Eliminatio Active 2020-0 Chantel incontinenc n 2-06 (Ira) e 09:00: Barry [id number] Neuro confusion Neuro/Emot Active 2020-0 Chantel present ion 2-06 (Ira) 09:00: Reddy [id number] Neuro anxiety Neuro/Emot Active 2020-0 Chantel present ion 2-06 (Ira) 09:00: Barry [id number] Neuro impaired Neuro/Emot Active 2020-0 Chantel decision-ma ion 2-06 (Ira) gogo 09:00: Barry [id number] Neuro memory Neuro/Emot Active 2020-0 Chantel deficit ion 2-06 (Ira) needing 09:00: Barry supervision 00 [id number] Activity ADL Activity Active 2020-0 Chantel assistance 2-06 (Ira) required 09:00: Reddy [id number] Activity self-care Activity Active 2020-0 Chantel deficit 2-06 (Ira) 09:00: Barry [id number] Safety fall risk Safety Active 2020-0 Chantel factor 2-06 (Ira) present 09:00: Reddy [id number] Safety risk for Safety Active 2020-0 Chantel hospitaliza 2-06 (Ira) tion 09:00: Reddy [id number] Safety can be left Safety Active 2020-0 Chantel alone for 2-06 (Ira) only short 09:00: Barry periods 00 [id number] Medication oral med Meds Active 2020-0 Chantel assistance 2-06 (Ira) required 09:00: Reddy [id number] Medication potential Meds Active 2020-0 Chantel clinically 2-06 (Ira) significant 09:00: Barry medication 00 [id number] issue Musculoskel transfer Musculoske Active 2020-0 Chantel etal assistance letal 2 (Ira) required 09:00: Reddy [id number] Musculoskel knowledge/s Musculoske Active 2020-0 Chantel etal kill letal 2 (Ira) deficit: pt 09:00: Reddy [id number] Musculoskel requires Musculoske Active 2020-0 Chantel etal human letal 2 (Ira) assist to 09:00: Reddy leave home [id number] Bed transfer PT/OT: Bed Active 2020-0 Jose Mobility/Tr deficit: Mobility/T 2-06 hector Feliciano sit/stand ransfer 11:30: PT 00 [id number] Bed transfer PT/OT: Bed Active 2020-0 Jose Mobility/Tr deficit: Mobility/T 2-06 hector Feliciano standing ransfer 11:30: PT pivot 00 [id number] Bed transfer PT/OT: Bed Active 2020-0 Jose Mobility/Tr deficit: Mobility/T 2-06 hector Feliciano toilet/comm ransfer 11:30: PT ode 00 [id number] Bed transfer PT/OT: Bed Active 2020-0 Jose Mobility/Tr deficit: Mobility/T 2-06 hector Feliciano shower/tub ransfer 11:30: PT 00 [id number] Bed knowledge/s PT/OT: Bed Active 2020-0 Jose Mobility/Tr kill Mobility/T 2-06 hector Feliciano deficit: pt ransfer 11:30: PT 00 [id number] Bed bed PT/OT: Bed Active 2020-0 Jose Mobility/Tr mobility Mobility/T 2-06 hector Feliciano deficit ransfer 11:30: PT 00 [id number] Gait/Locomo gait PT/OT: Active 2020-0 Jose tion assistive Gait/Locom 2-06 Braden, problems device otion 11:30: PT present 00 [id number] Gait/Locomo knowledge/s PT/OT: Active 2020-0 Jose tion kill Gait/Locom 2-06 Braden, problems deficit: pt otion 11:30: PT 00 [id number] Gait/Locomo knowledge/s PT/OT: Active 2020-0 Jose tion kill Gait/Locom 2-06 Braden, problems deficit: cg otion 11:30: PT 00 080944-6 Gait/Locomo gait PT/OT: Active Jose tion deficit Gait/Locom 09-20 Braden, problems otion 11:30: PT [id number] Allergies, Adverse Reactions, Alerts Allergy Allergy Status Severity Reaction(s) Onset Inactive Treating Comments Name Type Date Date Clinician Unknown None Active Unknown None Unknown No Known Allergies For This Patient Medications Ordered Filled Start Stop Current Ordering Indication Dosage Frequency Signature Comments Components Medication Medication Date Date Medication? Clinician (SIG) Name Name pregabalin pregabalin 2020- Yes LaFace Unknown Unknown 75 mg 75 mg 09-20- Nohelia TAPIA capsule capsule Fish Oil Fish Oil Yes LaFace Unknown Unknown 100 mg-160 100 mg-160 09-20 Nohelia TAPIA mg-1,000 mg mg-1,000 mg capsule capsule Multi Multi Yes LaFace Unknown Unknown Complete Complete 09-20 Nohelia TAPIA with Iron with Iron 18 mg-400 18 mg-400 mcg tablet mcg tablet amitriptyli amitriptyli Yes LaFace Unknown Unknown ne 10 mg ne 10 mg 09-20 Nohelia TAPIA tablet tablet carbidopa carbidopa Yes LaFace Unknown Unknown 25 25 09-20 Nohelia TAPIA-levodopa mg-levodopa 100 mg 100 mg tablet tablet amLODIPine amLODIPine Yes LaFace Unknown Unknown 5 mg tablet 5 mg tablet 09-20 Nohelia TAPIA atenolol 25 atenolol 25 Yes LaFace Unknown Unknown mg tablet mg tablet 09-20 Nohelia TAPIA Vitamin C Vitamin C Yes LaFace Unknown Unknown 1,000 mg 1,000 mg 09-20 Nohelia TAPIA tablet tablet magnesium magnesium Yes LaFace Unknown Unknown 400 mg (as 400 mg (as 09-20 Nohelia TAPIA magnesium magnesium oxide) oxide) tablet tablet Vitamin B-6 Vitamin B-6 Yes LaFace Unknown Unknown 50 mg 50 mg 09-20 Nohelia TAPIA tablet tablet Calcium 600 Calcium 600 Yes LaFace Unknown Unknown + D(3) 600 + D(3) 600 2 Nohelia TAPIA mg (1,500 mg (1,500 mg)-200 mg)-200 unit tablet unit tablet Lipoic Acid Lipoic Acid 2020-0 Yes LaFace Unknown Unknown 100 mg 100 mg 2-06 MD,Nohelia capsule capsule pregabalin pregabalin 2020-0 Yes LaFace Unknown Unknown 75 mg 75 mg 3-06 MD,Nohelia capsule capsule Vital Signs Vital Name Observation Time Observation Value Comments SYSTOLIC mm[Hg] 2019-11-01 18:10:57 108 mm[Hg] mm[Hg] Method: Sit SYSTOLIC mm[Hg] 2019-09-21 18:10:16 114 mm[Hg] mm[Hg] Method: Stand DIASTOLIC mm[Hg] 2019-11-01 18:10:57 68 mm[Hg] mm[Hg] Method: Sit DIASTOLIC mm[Hg] 2019-09-21 18:10:16 76 mm[Hg] mm[Hg] Method: Stand PULSE 2019-11-01 18:10:57 64 /min /min RESP RATE 2019-11-01 18:10:57 18 /min /min TEMP 2019-11-01 18:10:57 97.6 [degF] Procedures This patient has no known procedures. Results This patient has no known results.
--- OUTSIDE RECORDS SUMMARY | 2019-12-08 15:34 | XMS REPORT ---
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, idiopathic idiopathic PT neuropathy, neuropathy, 049214-9 unspecified unspecified Essential Essential Diagnosis Active Jose (primary) (primary) 09-12 Braden, hypertensio hypertensio PT n n [id number] Primary Primary Diagnosis Active Jose osteoarthri osteoarthri 09-12 Braden, tis, tis, PT unspecified unspecified 480316-4 ankle and ankle and foot foot Osteoarthri Osteoarthri Diagnosis Active Jose tis of tis of 09-12 Braden, knee, knee, PT unspecified unspecified [id number] Generalized Generalized Diagnosis Active Jose anxiety anxiety 09-12 Braden, disorder disorder PT 622515-2 Pure Pure Diagnosis Active Jose hyperglycer hyperglycer Braden, idemia idemia PT 402163-6 Trigger Trigger Diagnosis Active Jose finger, finger, Braden, unspecified unspecified PT finger finger 854928-2 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, syndrome syndrome PT 826611-0 Unspecified Unspecified Diagnosis Active Jose sensorineur sensorineur Braden, 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 311628-9 Other Other Diagnosis Active Jose amnesia amnesia Braden, PT 940459-7 Constipatio Constipatio Diagnosis Active Jose n, n, Braden, unspecified unspecified PT 039504-4 Anesthesia Anesthesia Diagnosis Active Jose of skin of skin Braden, PT 978030-6 Foreign Foreign Diagnosis Active Jose body in body in Braden, ear, ear, PT unspecified unspecified 722814-0 ear, ear, subsequent subsequent encounter encounter Other long Other long Diagnosis Active Jose term term Braden, (current) (current) PT drug drug 576383-3 therapy therapy Pain frequent Pain Mgmt Active 2020-0 Chantel pain 2-06 (Ira) 09:00: Reddy [id number] Respiratory dyspnea Respirator Active 2020-0 Chantel present y 2-06 (Ira) 09:00: Reddy [id number] Sensory impaired Sensory Active 2020-0 Chantel hearing 2-06 (Ira) 09:00: Reddy [id number] Integument skin Integument Active 2020-0 Chantel integrity 2-06 (Ira) risk 09:00: Reddy [id number] Elimination urinary Eliminatio Active 2020-0 Chantel incontinenc n 2-06 (Ira) e 09:00: Barry [id number] Neuro confusion Neuro/Emot Active 2020-0 Chantel present ion 2-06 (Ira) 09:00: Reddy [id number] Neuro anxiety Neuro/Emot Active 2020-0 Chantel present ion 2-06 (Ira) 09:00: Barry [id number] Neuro impaired Neuro/Emot Active 2020-0 Chantel decision-ma ion 2-06 (Ira) gogo 09:00: Barry [id number] Neuro memory Neuro/Emot Active 2020-0 Chantel deficit ion 2-06 (Ira) needing 09:00: Barry supervision 00 [id number] Activity ADL Activity Active 2020-0 Chantel assistance 2-06 (Ira) required 09:00: Reddy [id number] Activity self-care Activity Active 2020-0 Chantel deficit 2-06 (Ira) 09:00: Barry [id number] Safety fall risk Safety Active 2020-0 Chantel factor 2-06 (Ira) present 09:00: Reddy [id number] Safety risk for Safety Active 2020-0 Chantel hospitaliza 2-06 (Ira) tion 09:00: Reddy [id number] Safety can be left Safety Active 2020-0 Chantel alone for 2-06 (Ira) only short 09:00: Barry periods 00 [id number] Medication oral med Meds Active 2020-0 Chantel assistance 2-06 (Ira) required 09:00: Reddy [id number] Medication potential Meds Active 2020-0 Chantel clinically 2-06 (Ira) significant 09:00: Barry medication 00 [id number] issue Musculoskel transfer Musculoske Active 2020-0 Chantel etal assistance letal 2 (Ira) required 09:00: Reddy [id number] Musculoskel knowledge/s Musculoske Active 2020-0 Chantel etal kill letal 2 (Ira) deficit: pt 09:00: Reddy [id number] Musculoskel requires Musculoske Active 2020-0 Chantel etal human letal 2 (Ira) assist to 09:00: Reddy leave home [id number] Bed transfer PT/OT: Bed Active 2020-0 Jose Mobility/Tr deficit: Mobility/T 2-06 hector Feliciano sit/stand ransfer 11:30: PT 00 [id number] Bed transfer PT/OT: Bed Active 2020-0 Jose Mobility/Tr deficit: Mobility/T 2-06 hector Feliciano standing ransfer 11:30: PT pivot 00 [id number] Bed transfer PT/OT: Bed Active 2020-0 Jose Mobility/Tr deficit: Mobility/T 2-06 hector Feliciano toilet/comm ransfer 11:30: PT ode 00 [id number] Bed transfer PT/OT: Bed Active 2020-0 Jose Mobility/Tr deficit: Mobility/T 2-06 hector Feliciano shower/tub ransfer 11:30: PT 00 [id number] Bed knowledge/s PT/OT: Bed Active 2020-0 Jose Mobility/Tr kill Mobility/T 2-06 hector Feliciano deficit: pt ransfer 11:30: PT 00 [id number] Bed bed PT/OT: Bed Active 2020-0 Jose Mobility/Tr mobility Mobility/T 2-06 hector Feliciano deficit ransfer 11:30: PT 00 [id number] Gait/Locomo gait PT/OT: Active 2020-0 Jose tion assistive Gait/Locom 2-06 Braden, problems device otion 11:30: PT present 00 [id number] Gait/Locomo knowledge/s PT/OT: Active 2020-0 Jose tion kill Gait/Locom 2-06 Braden, problems deficit: pt otion 11:30: PT 00 167334-6 Gait/Locomo knowledge/s PT/OT: Active 2020-0 Jose tion kill Gait/Locom 2-06 Braden, problems deficit: cg otion 11:30: PT 00 [id number] Gait/Locomo gait PT/OT: Active Jose tion deficit Gait/Locom 09-20 Braden, problems otion 11:30: PT [id number] Allergies, Adverse Reactions, Alerts Allergy Allergy Status [...] tablet 5 mg tablet 09-20 Nohelia TAPIA atenoloL 25 atenoloL 25 Yes LaFace Unknown Unknown mg tablet [...] Observation Time Observation Value Comments SYSTOLIC mm[Hg] 2019-11-11 18:11:07 104 mm[Hg] mm[Hg] Method: Sit SYSTOLIC mm[Hg] 2019-09-21 18:10:16 114 mm[Hg] mm[Hg] Method: Stand DIASTOLIC mm[Hg] 2019-11-11 18:11:07 64 mm[Hg] mm[Hg] Method: Sit DIASTOLIC mm[Hg] 2019-09-21 18:10:16 76 mm[Hg] mm[Hg] Method: Stand PULSE 2019-11-11 18:11:07 60 /min /min RESP RATE 2019-11-11 18:11:07 18 /min /min TEMP 2019-11-11 18:11:07 96.8 [degF] Procedures This patient has no known procedures. Results This patient has no known results.
--- OUTSIDE RECORDS SUMMARY | 2019-12-08 15:34 | XMS REPORT ---
:1940 Author Organization [facility] Care Team Providers Name Role Phone Unavailable Unavailable Unavailable Problems Condition Condition Condition Status Onset Resolution Last Treating Comments Name Details Category Date Date Treatment Clinician Date Rhabdomyoly Rhabdomyoly Diagnosis Active Malinda sis sis -22 Ervin Nutrition nutritional Nutrition Active Thaddeus restriction 4-24 Anguish s 13:01: [id number] Gait/Locomo gait PT/OT: Active Thaddeus tion assistive Gait/Locom 4-24 Anguish problems device otion 13:01: [id number] present 00 Gait/Locomo gait PT/OT: Active Thaddeus tion deficit Gait/Locom 4-24 Anguish problems otion 13:01: [id number] Allergies, Adverse Reactions, Alerts Allergy Allergy Status Severity Reaction(s) Onset Inactive Treating Comments Name Type Date Date Clinician Tramadol Unknown Active Unknown Reaction 2019-11 Cherry Unknown -23 [place]#[id number] Medications Ordered Filled Start Stop Current Ordering Indication Dosage Frequency Signature Comments Components Medication Medication Date Date Medication? Clinician (SIG) Name Name acetaminoph acetaminoph Yes Abdul Unknown Unknown en 325 mg en 325 mg 12-05 MD,Sherry tablet tablet amitriptyli amitriptyli Yes Abdul Unknown Unknown ne HCL ne HCL 12-05 MD,Sherry carBAMazepi carBAMazepi Yes Abdul Unknown Unknown ne 200 mg ne 200 mg 12-05 MD,Sherry tablet tablet carbidopa carbidopa Yes Abdul Unknown Unknown ER 25 ER 25 12-05 MD,Sherry mg-levodopa mg-levodopa 100 mg 100 mg tablet,exte tablet,exte nded nded release release enoxaparin enoxaparin Yes Abdul Unknown Unknown 60 mg/0.6 60 mg/0.6 4-23 MD,Sherry mL mL subcutaneou subcutaneou s syringe s syringe pregabalin pregabalin 2019- Yes Abdul Unknown Unknown 25 mg 25 mg 4-23 MD,Sherry capsule capsule pregabalin pregabalin 2019- Yes Abdul Unknown Unknown 100 mg 100 mg - MD,Sherry capsule capsule cefdinir cefdinir Yes Abdul Unknown Unknown 300 mg 300 mg - MD,Sherry capsule capsule Vital Signs Vital Name Observation Time Observation Value Comments SYSTOLIC mm[Hg] 2019-12-07 18:11:33 130 mm[Hg] mm[Hg] Method: Sit DIASTOLIC mm[Hg] 2019-12-07 18:11:33 80 mm[Hg] mm[Hg] Method: Sit PULSE 2019-12-07 18:11:33 78 /min /min RESP RATE 2019-12-07 18:11:33 14 /min /min TEMP 2019-12-07 18:11:33 100.3 [degF] Procedures This patient has no known procedures. Results This patient has no known results.
--- OUTSIDE RECORDS SUMMARY | 2019-12-08 15:34 | XMS REPORT ---
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, idiopathic idiopathic PT neuropathy, neuropathy, 753668-1 unspecified unspecified Essential Essential Diagnosis Active Jose (primary) (primary) 09-12 Braden, hypertensio hypertensio PT n n [id number] Primary Primary Diagnosis Active Jose osteoarthri osteoarthri 09-12 Braden, tis, tis, PT unspecified unspecified 957898-3 ankle and ankle and foot foot Osteoarthri Osteoarthri Diagnosis Active Jose tis of tis of 09-12 Braden, knee, knee, PT unspecified unspecified [id number] Generalized Generalized Diagnosis Active Jose anxiety anxiety 09-12 Braden, disorder disorder PT 096272-0 Pure Pure Diagnosis Active Jose hyperglycer hyperglycer Braden, idemia idemia PT 812575-3 Trigger Trigger Diagnosis Active Jose finger, finger, Braden, unspecified unspecified PT finger finger 439888-3 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, syndrome syndrome PT 562489-9 Unspecified Unspecified Diagnosis Active Jose sensorineur sensorineur Braden, 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 397760-6 Other Other Diagnosis Active Jose amnesia amnesia Braden, PT 417805-3 Constipatio Constipatio Diagnosis Active Jose n, n, Braden, unspecified unspecified PT 418170-4 Anesthesia Anesthesia Diagnosis Active Jose of skin of skin Braden, PT 928967-5 Foreign Foreign Diagnosis Active Jose body in body in Braden, ear, ear, PT unspecified unspecified 323701-2 ear, ear, subsequent subsequent encounter encounter Other long Other long Diagnosis Active Jose term term Braden, (current) (current) PT drug drug 709622-5 therapy therapy Pain frequent Pain Mgmt Active 2020-0 Chantel pain 2-06 (Ira) 09:00: Reddy [id number] Respiratory dyspnea Respirator Active 2020-0 Chantel present y 2-06 (Ira) 09:00: Reddy [id number] Sensory impaired Sensory Active 2020-0 Chantel hearing 2-06 (Ira) 09:00: Reddy [id number] Integument skin Integument Active 2020-0 Chantel integrity 2-06 (Ira) risk 09:00: Reddy [id number] Elimination urinary Eliminatio Active 2020-0 Chantel incontinenc n 2-06 (Ira) e 09:00: Barry [id number] Neuro confusion Neuro/Emot Active 2020-0 Chantel present ion 2-06 (Ira) 09:00: Reddy [id number] Neuro anxiety Neuro/Emot Active 2020-0 Chantel present ion 2-06 (Ira) 09:00: Barry [id number] Neuro impaired Neuro/Emot Active 2020-0 Chantel decision-ma ion 2-06 (Ira) gogo 09:00: Barry [id number] Neuro memory Neuro/Emot Active 2020-0 Chantel deficit ion 2-06 (Ira) needing 09:00: Barry supervision 00 [id number] Activity ADL Activity Active 2020-0 Chantel assistance 2-06 (Ira) required 09:00: Reddy [id number] Activity self-care Activity Active 2020-0 Chantel deficit 2-06 (Ira) 09:00: Barry [id number] Safety fall risk Safety Active 2020-0 Chantel factor 2-06 (Ira) present 09:00: Reddy [id number] Safety risk for Safety Active 2020-0 Chantel hospitaliza 2-06 (Ira) tion 09:00: Reddy [id number] Safety can be left Safety Active 2020-0 Chantel alone for 2-06 (Ira) only short 09:00: Barry periods 00 [id number] Medication oral med Meds Active 2020-0 Chantel assistance 2-06 (Ira) required 09:00: Reddy [id number] Medication potential Meds Active 2020-0 Chantel clinically 2-06 (Ira) significant 09:00: Barry medication 00 [id number] issue Musculoskel transfer Musculoske Active 2020-0 Chantel etal assistance letal 2 (Ira) required 09:00: Reddy [id number] Musculoskel knowledge/s Musculoske Active 2020-0 Chantel etal kill letal 2 (Ira) deficit: pt 09:00: Reddy [id number] Musculoskel requires Musculoske Active 2020-0 Chantel etal human letal 2 (Ira) assist to 09:00: Reddy leave home [id number] Bed transfer PT/OT: Bed Active 2020-0 Jose Mobility/Tr deficit: Mobility/T 2-06 hector Feliciano sit/stand ransfer 11:30: PT 00 555285-8 Bed transfer PT/OT: Bed Active 2020-0 Jose Mobility/Tr deficit: Mobility/T 2-06 hector Feliciano standing ransfer 11:30: PT pivot 00 [id number] Bed transfer PT/OT: Bed Active 2020-0 Jose Mobility/Tr deficit: Mobility/T 2-06 hector Feliciano toilet/comm ransfer 11:30: PT ode 00 594225-5 Bed transfer PT/OT: Bed Active 2020-0 Jose Mobility/Tr deficit: Mobility/T 2-06 hector Feliciano shower/tub ransfer 11:30: PT 00 503759-2 Bed knowledge/s PT/OT: Bed Active 2020-0 Jose Mobility/Tr kill Mobility/T 2-06 hector Feliciano deficit: pt ransfer 11:30: PT 00 477183-0 Bed bed PT/OT: Bed Active 2020-0 Jose Mobility/Tr mobility Mobility/T 2-06 hector Feliciano deficit ransfer 11:30: PT 00 [id number] Gait/Locomo gait PT/OT: Active 2020-0 Jose tion assistive Gait/Locom 2-06 Braden, problems device otion 11:30: PT present 00 [id number] Gait/Locomo knowledge/s PT/OT: Active 2020-0 Jose tion kill Gait/Locom 2-06 Braden, problems deficit: pt otion 11:30: PT 00 [id number] Gait/Locomo knowledge/s PT/OT: Active 2020-0 Jose tion kill Gait/Locom 2-06 Braden, problems deficit: cg otion 11:30: PT 00 417116-4 Gait/Locomo gait PT/OT: Active Jose tion deficit Gait/Locom 09-20 Braden, problems otion 11:30: PT 250888-0 Allergies, Adverse Reactions, Alerts Allergy Allergy Status [...] Observation Time Observation Value Comments SYSTOLIC mm[Hg] 2019-11-06 18:11:02 98 mm[Hg] mm[Hg] Method: Sit SYSTOLIC mm[Hg] 2019-09-21 18:10:16 114 mm[Hg] mm[Hg] Method: Stand DIASTOLIC mm[Hg] 2019-11-06 18:11:02 62 mm[Hg] mm[Hg] Method: Sit DIASTOLIC mm[Hg] 2019-09-21 18:10:16 76 mm[Hg] mm[Hg] Method: Stand PULSE 2019-11-06 18:11:02 66 /min /min RESP RATE 2019-11-06 18:11:02 18 /min /min TEMP 2019-11-06 18:11:02 98.7 [degF] Procedures This patient has no known procedures. Results This patient has no known results.
--- OUTSIDE RECORDS SUMMARY | 2019-12-08 15:34 | XMS REPORT ---
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, idiopathic idiopathic PT neuropathy, neuropathy, 821506-5 unspecified unspecified Essential Essential Diagnosis Active Jose (primary) (primary) 09-12 Braden, hypertensio hypertensio PT n n 026968-4 Primary Primary Diagnosis Active Jose osteoarthri osteoarthri 09-12 Braden, tis, tis, PT unspecified unspecified 885658-6 ankle and ankle and foot foot Osteoarthri Osteoarthri Diagnosis Active Jose tis of tis of 09-12 Braden, knee, knee, PT unspecified unspecified 273363-1 Generalized Generalized Diagnosis Active Jose anxiety anxiety 09-12 Braden, disorder disorder PT 305218-5 Pure Pure Diagnosis Active Jose hyperglycer hyperglycer Braden, idemia idemia PT 428717-1 Trigger Trigger Diagnosis Active Jose finger, finger, Braden, unspecified unspecified PT finger finger 343751-2 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, syndrome syndrome PT 709221-1 Unspecified Unspecified Diagnosis Active Jose sensorineur sensorineur Braden, 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 582510-3 Other Other Diagnosis Active Jose amnesia amnesia Braden, PT 206806-3 Constipatio Constipatio Diagnosis Active Jose n, n, Braden, unspecified unspecified PT 150368-2 Anesthesia Anesthesia Diagnosis Active Jose of skin of skin Braden, PT 648511-8 Foreign Foreign Diagnosis Active Jose body in body in Braden, ear, ear, PT unspecified unspecified 575912-8 ear, ear, subsequent subsequent encounter encounter Other long Other long Diagnosis Active Jose term term Braden, (current) (current) PT drug drug 057587-7 therapy therapy Pain frequent Pain Mgmt Active 2020-0 Chantel pain 2-06 (Ira) 09:00: Reddy [id number] Respiratory dyspnea Respirator Active 2020-0 Chantel present y 2-06 (Ira) 09:00: Reddy [id number] Sensory impaired Sensory Active 2020-0 Chantel hearing 2-06 (Ira) 09:00: Reddy [id number] Integument skin Integument Active 2020-0 Chantel integrity 2-06 (Ira) risk 09:00: Reddy [id number] Elimination urinary Eliminatio Active 2020-0 Chantel incontinenc n 2-06 (Ira) e 09:00: Barry [id number] Neuro confusion Neuro/Emot Active 2020-0 Chantel present ion 2-06 (Ira) 09:00: Reddy [id number] Neuro anxiety Neuro/Emot Active 2020-0 Chantel present ion 2-06 (Ira) 09:00: Barry [id number] Neuro impaired Neuro/Emot Active 2020-0 Chantel decision-ma ion 2-06 (Ira) gogo 09:00: Barry [id number] Neuro memory Neuro/Emot Active 2020-0 Chantel deficit ion 2-06 (Ira) needing 09:00: Barry supervision 00 [id number] Activity ADL Activity Active 2020-0 Chantel assistance 2-06 (Ira) required 09:00: Reddy [id number] Activity self-care Activity Active 2020-0 Chantel deficit 2-06 (Ira) 09:00: Barry [id number] Safety fall risk Safety Active 2020-0 Chantel factor 2-06 (Ira) present 09:00: Reddy [id number] Safety risk for Safety Active 2020-0 Chantel hospitaliza 2-06 (Ira) tion 09:00: Reddy [id number] Safety can be left Safety Active 2020-0 Chantel alone for 2-06 (Ira) only short 09:00: Barry periods 00 [id number] Medication oral med Meds Active 2020-0 Chantel assistance 2-06 (Ira) required 09:00: Reddy [id number] Medication potential Meds Active 2020-0 Chantel clinically 2-06 (Ira) significant 09:00: Barry medication 00 [id number] issue Musculoskel transfer Musculoske Active 2020-0 Chantel etal assistance letal 2 (Ira) required 09:00: Reddy [id number] Musculoskel knowledge/s Musculoske Active 2020-0 Chantel etal kill letal 2 (Ira) deficit: pt 09:00: Reddy [id number] Musculoskel requires Musculoske Active 2020-0 Chantel etal human letal 2 (Ira) assist to 09:00: Reddy leave home [id number] Bed transfer PT/OT: Bed Active 2020-0 Jose Mobility/Tr deficit: Mobility/T 2-06 hector Feliciano sit/stand ransfer 11:30: PT 00 619424-2 Bed transfer PT/OT: Bed Active 2020-0 Jose Mobility/Tr deficit: Mobility/T 2-06 hector Feliciano standing ransfer 11:30: PT pivot 00 595252-4 Bed transfer PT/OT: Bed Active 2020-0 Jose Mobility/Tr deficit: Mobility/T 2-06 hector Feliciano toilet/comm ransfer 11:30: PT ode 00 462253-5 Bed transfer PT/OT: Bed Active 2020-0 Jose Mobility/Tr deficit: Mobility/T 2-06 hector Feliciano shower/tub ransfer 11:30: PT 00 346845-9 Bed knowledge/s PT/OT: Bed Active 2020-0 Jose Mobility/Tr kill Mobility/T 2-06 hector Feliciano deficit: pt ransfer 11:30: PT 00 936980-0 Bed bed PT/OT: Bed Active 2020-0 Jose Mobility/Tr mobility Mobility/T 2-06 hector Feliciano deficit ransfer 11:30: PT 00 [id number] Gait/Locomo gait PT/OT: Active 2020-0 Jose tion assistive Gait/Locom 2-06 Braden, problems device otion 11:30: PT present 00 [id number] Gait/Locomo knowledge/s PT/OT: Active 2020-0 Jose tion kill Gait/Locom 2-06 Braden, problems deficit: pt otion 11:30: PT 00 757115-5 Gait/Locomo knowledge/s PT/OT: Active 2020-0 Jose tion kill Gait/Locom 2-06 Braden, problems deficit: cg otion 11:30: PT 00 295163-5 Gait/Locomo gait PT/OT: Active Jose tion deficit Gait/Locom 09-20 Braden, problems otion 11:30: PT [id number] Allergies, Adverse Reactions, Alerts Allergy Allergy Status [...]
--- OUTSIDE RECORDS SUMMARY | 2019-12-08 15:34 | XMS REPORT ---
:1940 Author Organization [facility] Care Team Providers Name Role Phone Unavailable Unavailable Unavailable Problems Condition Condition Condition Status Onset Resolution Last Treating Comments Name Details Category Date Date Treatment Clinician Date Rhabdomyoly Rhabdomyoly Diagnosis Active Malinda ding sis 12-04 Ervin Allergies, Adverse Reactions, Alerts Allergy Allergy Status Severity Reaction(s) Onset Inactive Treating Comments Name Type Date Date Clinician Tramadol Unknown Active Unknown Reaction 2019-11 Cherry - [facility]#[id number] Medications Ordered Filled Start Stop Current Ordering [...] mg 12-05 MD,Sherry tablet tablet carbidopa carbidopa 0 Yes Abdul Unknown Unknown ER 25 ER 25 12-05 MD,Sherry mg-levodopa mg-levodopa 100 mg 100 mg tablet,exte tablet,exte nded nded release release enoxaparin enoxaparin Yes Abdul Unknown Unknown 60 mg/0.6 60 mg/0.6 12-05 MD,Sherry mL mL subcutaneou subcutaneou s syringe s syringe pregabalin pregabalin 0 Yes Abdul Unknown Unknown 25 mg 25 mg 12-05 MD,Sherry capsule capsule pregabalin pregabalin Yes Abdul Unknown Unknown 100 mg 100 mg 12-05 MD,Sherry capsule capsule cefdinir cefdinir Yes Abdul Unknown Unknown 300 mg 300 mg 12-05 Sherry TAPIA capsule capsule Procedures This patient has no known procedures. Results This patient has no known results.
--- OUTSIDE RECORDS SUMMARY | 2019-12-08 15:34 | XMS REPORT ---
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, idiopathic idiopathic PT neuropathy, neuropathy, 190495-3 unspecified unspecified Essential Essential Diagnosis Active Jose (primary) (primary) 09-12 Braden, hypertensio hypertensio PT n n 201141-2 Primary Primary Diagnosis Active Jose osteoarthri osteoarthri 09-12 Braden, tis, tis, PT unspecified unspecified 631721-2 ankle and ankle and foot foot Osteoarthri Osteoarthri Diagnosis Active Jose tis of tis of 09-12 Braden, knee, knee, PT unspecified unspecified 335701-1 Generalized Generalized Diagnosis Active Jose anxiety anxiety 09-12 Braden, disorder disorder PT 849352-8 Pure Pure Diagnosis Active Jose hyperglycer hyperglycer Braden, idemia idemia PT 830577-5 Trigger Trigger Diagnosis Active Jose finger, finger, Braden, unspecified unspecified PT finger finger 974098-8 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, syndrome syndrome PT 366458-8 Unspecified Unspecified Diagnosis Active Jose sensorineur sensorineur Braden, 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 569333-8 Other Other Diagnosis Active Jose amnesia amnesia Braden, PT 377220-4 Constipatio Constipatio Diagnosis Active Jose n, n, Braden, unspecified unspecified PT 677645-4 Anesthesia Anesthesia Diagnosis Active Jose of skin of skin Braden, PT 998285-2 Foreign Foreign Diagnosis Active Jose body in body in Braden, ear, ear, PT unspecified unspecified 752675-6 ear, ear, subsequent subsequent encounter encounter Other long Other long Diagnosis Active Jose term term Braden, (current) (current) PT drug drug 685330-0 therapy therapy Pain frequent Pain Mgmt Active 2020-0 Chantel pain 2-06 (Ira) 09:00: Reddy [id number] Respiratory dyspnea Respirator Active 2020-0 Chantel present y 2-06 (Ira) 09:00: Reddy [id number] Sensory impaired Sensory Active 2020-0 Chantel hearing 2-06 (Ira) 09:00: Reddy [id number] Integument skin Integument Active 2020-0 Chantel integrity 2-06 (Ira) risk 09:00: Reddy [id number] Elimination urinary Eliminatio Active 2020-0 Chantel incontinenc n 2-06 (Ira) e 09:00: Barry [id number] Neuro confusion Neuro/Emot Active 2020-0 Chantel present ion 2-06 (Ira) 09:00: Reddy [id number] Neuro anxiety Neuro/Emot Active 2020-0 Chantel present ion 2-06 (Ira) 09:00: Barry [id number] Neuro impaired Neuro/Emot Active 2020-0 Chantel decision-ma ion 2-06 (Ira) gogo 09:00: Barry [id number] Neuro memory Neuro/Emot Active 2020-0 Chantel deficit ion 2-06 (Ira) needing 09:00: Barry supervision 00 [id number] Activity ADL Activity Active 2020-0 Chantel assistance 2-06 (Ira) required 09:00: Reddy [id number] Activity self-care Activity Active 2020-0 Chantel deficit 2-06 (Ira) 09:00: Barry [id number] Safety fall risk Safety Active 2020-0 Chantel factor 2-06 (Ira) present 09:00: Reddy [id number] Safety risk for Safety Active 2020-0 Chantel hospitaliza 2-06 (Ira) tion 09:00: Reddy [id number] Safety can be left Safety Active 2020-0 Chantel alone for 2-06 (Ira) only short 09:00: Barry periods 00 [id number] Medication oral med Meds Active 2020-0 Chantel assistance 2-06 (Ira) required 09:00: Reddy [id number] Medication potential Meds Active 2020-0 Chantel clinically 2-06 (Ira) significant 09:00: Barry medication 00 [id number] issue Musculoskel transfer Musculoske Active 2020-0 Chantel etal assistance letal 2 (Ira) required 09:00: Reddy [id number] Musculoskel knowledge/s Musculoske Active 2020-0 Chantel etal kill letal 2 (Ira) deficit: pt 09:00: Reddy [id number] Musculoskel requires Musculoske Active 2020-0 Chantel etal human letal 2 (Ira) assist to 09:00: Reddy leave home [id number] Bed transfer PT/OT: Bed Active 2020-0 Jose Mobility/Tr deficit: Mobility/T 2-06 hector Feliciano sit/stand ransfer 11:30: PT 00 [id number] Bed transfer PT/OT: Bed Active 2020-0 Jose Mobility/Tr deficit: Mobility/T 2-06 hector Feliciano standing ransfer 11:30: PT pivot 00 [id number] Bed transfer PT/OT: Bed Active 2020-0 Jose Mobility/Tr deficit: Mobility/T 2-06 hector Feliciano toilet/comm ransfer 11:30: PT ode 00 782165-3 Bed transfer PT/OT: Bed Active 2020-0 Jose Mobility/Tr deficit: Mobility/T 2-06 hector Feliciano shower/tub ransfer 11:30: PT 00 [id number] Bed knowledge/s PT/OT: Bed Active 2020-0 Jose Mobility/Tr kill Mobility/T 2-06 hector Feliciano deficit: pt ransfer 11:30: PT 00 716452-3 Bed bed PT/OT: Bed Active 2020-0 Jose Mobility/Tr mobility Mobility/T 2-06 hector Feliciano deficit ransfer 11:30: PT 00 [id number] Gait/Locomo gait PT/OT: Active 2020-0 Jose tion assistive Gait/Locom 2-06 Braden, problems device otion 11:30: PT present 00 877938-4 Gait/Locomo knowledge/s PT/OT: Active 2020-0 Jose tion kill Gait/Locom 2-06 Braden, problems deficit: pt otion 11:30: PT 00 616414-5 Gait/Locomo knowledge/s PT/OT: Active 2020-0 Jose tion kill Gait/Locom 2-06 Braden, problems deficit: cg otion 11:30: PT 00 008219-8 Gait/Locomo gait PT/OT: Active Jose tion deficit Gait/Locom 09-20 Braden, problems otion 11:30: PT 479068-0 Allergies, Adverse Reactions, Alerts Allergy Allergy Status [...] Observation Time Observation Value Comments SYSTOLIC mm[Hg] 2019-11-13 18:11:09 120 mm[Hg] mm[Hg] Method: Sit SYSTOLIC mm[Hg] 2019-09-21 18:10:16 114 mm[Hg] mm[Hg] Method: Stand DIASTOLIC mm[Hg] 2019-11-13 18:11:09 62 mm[Hg] mm[Hg] Method: Sit DIASTOLIC mm[Hg] 2019-09-21 18:10:16 76 mm[Hg] mm[Hg] Method: Stand PULSE 2019-11-13 18:11:09 66 /min /min RESP RATE 2019-11-13 18:11:09 16 /min /min TEMP 2019-11-13 18:11:09 97.7 [degF] Procedures This patient has no known procedures. Results This patient has no known results.
--- OUTSIDE RECORDS SUMMARY | 2019-12-08 15:34 | XMS REPORT ---
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, idiopathic idiopathic PT neuropathy, neuropathy, 755459-3 unspecified unspecified Essential Essential Diagnosis Active Jose (primary) (primary) 09-12 Braden, hypertensio hypertensio PT n n 741558-4 Primary Primary Diagnosis Active Jose osteoarthri osteoarthri 09-12 Braden, tis, tis, PT unspecified unspecified 429503-2 ankle and ankle and foot foot Osteoarthri Osteoarthri Diagnosis Active Jose tis of tis of 09-12 Braden, knee, knee, PT unspecified unspecified 867231-5 Generalized Generalized Diagnosis Active Jose anxiety anxiety 09-12 Braden, disorder disorder PT 429861-1 Pure Pure Diagnosis Active Jose hyperglycer hyperglycer Braden, idemia idemia PT 087127-4 Trigger Trigger Diagnosis Active Jose finger, finger, Braden, unspecified unspecified PT finger finger 336435-1 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, syndrome syndrome PT 958527-2 Unspecified Unspecified Diagnosis Active Jose sensorineur sensorineur Braden, 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 147192-9 Other Other Diagnosis Active Jose amnesia amnesia Braden, PT 802072-9 Constipatio Constipatio Diagnosis Active Jose n, n, Braden, unspecified unspecified PT 612638-2 Anesthesia Anesthesia Diagnosis Active Jose of skin of skin Braden, PT 762516-4 Foreign Foreign Diagnosis Active Jose body in body in Braden, ear, ear, PT unspecified unspecified 383227-1 ear, ear, subsequent subsequent encounter encounter Other long Other long Diagnosis Active Jose term term Braden, (current) (current) PT drug drug 821834-7 therapy therapy Pain frequent Pain Mgmt Active 2020-0 Chantel pain 2-06 (Ira) 09:00: Reddy [id number] Respiratory dyspnea Respirator Active 2020-0 Chantel present y 2-06 (Ira) 09:00: Reddy [id number] Sensory impaired Sensory Active 2020-0 Chantel hearing 2-06 (Ira) 09:00: Reddy [id number] Integument skin Integument Active 2020-0 Chantel integrity 2-06 (Ira) risk 09:00: Reddy [id number] Elimination urinary Eliminatio Active 2020-0 Chantel incontinenc n 2-06 (Ira) e 09:00: Barry [id number] Neuro confusion Neuro/Emot Active 2020-0 Chantel present ion 2-06 (Ira) 09:00: Reddy [id number] Neuro anxiety Neuro/Emot Active 2020-0 Chantel present ion 2-06 (Ira) 09:00: Barry [id number] Neuro impaired Neuro/Emot Active 2020-0 Chantel decision-ma ion 2-06 (Ira) gogo 09:00: Barry [id number] Neuro memory Neuro/Emot Active 2020-0 Chantel deficit ion 2-06 (Ira) needing 09:00: Barry supervision 00 [id number] Activity ADL Activity Active 2020-0 Chantel assistance 2-06 (Ira) required 09:00: Reddy [id number] Activity self-care Activity Active 2020-0 Chantel deficit 2-06 (Ira) 09:00: Barry [id number] Safety fall risk Safety Active 2020-0 Chantel factor 2-06 (Ira) present 09:00: Reddy [id number] Safety risk for Safety Active 2020-0 Chantel hospitaliza 2-06 (Ira) tion 09:00: Reddy [id number] Safety can be left Safety Active 2020-0 Chantel alone for 2-06 (Ira) only short 09:00: Barry periods 00 [id number] Medication oral med Meds Active 2020-0 Chantel assistance 2-06 (Ira) required 09:00: Reddy [id number] Medication potential Meds Active 2020-0 Chantel clinically 2-06 (Ira) significant 09:00: Barry medication 00 [id number] issue Musculoskel transfer Musculoske Active 2020-0 Chantel etal assistance letal 2 (Ira) required 09:00: Reddy [id number] Musculoskel knowledge/s Musculoske Active 2020-0 Chantel etal kill letal 2 (Ira) deficit: pt 09:00: Reddy [id number] Musculoskel requires Musculoske Active 2020-0 Chantel etal human letal 2 (Ira) assist to 09:00: Reddy leave home [id number] Bed transfer PT/OT: Bed Active 2020-0 Jose Mobility/Tr deficit: Mobility/T 2-06 hector Feliciano sit/stand ransfer 11:30: PT 00 279535-3 Bed transfer PT/OT: Bed Active 2020-0 Jose Mobility/Tr deficit: Mobility/T 2-06 hector Feliciano standing ransfer 11:30: PT pivot 00 [id number] Bed transfer PT/OT: Bed Active 2020-0 Jose Mobility/Tr deficit: Mobility/T 2-06 hector Feliciano toilet/comm ransfer 11:30: PT ode 00 868996-7 Bed transfer PT/OT: Bed Active 2020-0 Jose Mobility/Tr deficit: Mobility/T 2-06 hector Feliciano shower/tub ransfer 11:30: PT 00 665849-1 Bed knowledge/s PT/OT: Bed Active 2020-0 Jose Mobility/Tr kill Mobility/T 2-06 hector Feliciano deficit: pt ransfer 11:30: PT 00 376359-2 Bed bed PT/OT: Bed Active 2020-0 Jose Mobility/Tr mobility Mobility/T 2-06 hector Feliciano deficit ransfer 11:30: PT 00 319270-2 Gait/Locomo gait PT/OT: Active 2020-0 Jose tion assistive Gait/Locom 2-06 Brdaen, problems device otion 11:30: PT present 00 [id number] Gait/Locomo knowledge/s PT/OT: Active 2020-0 Jose tion kill Gait/Locom 2-06 Braden, problems deficit: pt otion 11:30: PT 00 900002-2 Gait/Locomo knowledge/s PT/OT: Active 2020-0 Jose tion kill Gait/Locom 2-06 Braden, problems deficit: cg otion 11:30: PT 00 604598-7 Gait/Locomo gait PT/OT: Active Jose tion deficit Gait/Locom 09-20 Braden, problems otion 11:30: PT 894265-0 Allergies, Adverse Reactions, Alerts Allergy Allergy Status [...]
--- OUTSIDE RECORDS SUMMARY | 2019-12-08 15:34 | XMS REPORT | Continuity of Care Document ---
:1940 External Reference #:[id number] Author Name Nohelia Jiménez MD (transmitted by agent of provider November) Address [address] , [place] [address] Care Team Providers Name Role Phone Nohelia Jiménez MD - Family Medicine Care Team Information Admission Nurse Coordinator [phone] Problems Active Problems Provider Date Parkinson's disease Tete Alab M.D. Onset: 08/26/2014 Idiopathic small fiber peripheral neuropathy Onset: 07/03/2019 Confusional state Onset: 02/26/2019 Hearing loss Onset: 12/21/2018 Carpal tunnel syndrome of left wrist Onset: 03/27/2018 Memory impairment Onset: 03/27/2018 Mild memory disturbance Onset: 12/12/2017 Chronic pain syndrome Onset: 12/12/2017 Idiopathic peripheral neuropathy Onset: 11/30/2016 Cobalamin deficiency Onset: 07/14/2016 Hand pain Onset: 06/08/2016 Fear of flying Onset: 01/07/2016 Primary hypertriglyceridemia Onset: 09/16/2015 Numbness of foot Onset: 09/16/2015 Degenerative joint disease of ankle AND/OR foot Onset: 09/16/2015 Generalized anxiety disorder Onset: 12/13/2013 Acquired trigger finger Onset: 12/05/2013 Essential hypertension Onset: 12/05/2013 Intracranial meningioma Onset: 08/15/2012 Osteoarthritis of knee Onset: 08/15/2009 Adult health examination Nohelia Jiménez MD Onset: 08/29/2019 Constipation Nohelia Jiménez MD Onset: 08/29/2019 Impairment of balance Nohelia Jiménez MD Onset: 09/12/2019 Impacted cerumen Nohelia Jiménez MD Onset: 09/12/2019 Foreign body in ear Nohelia Jiménez MD Onset: 09/12/2019 Social History Type Date Description Comments Sex Unknown Tobacco Use Start: Unknown Never Smoked Cigarettes ETOH Use Rarely consumes alcohol ETOH Use Denies alcohol use Tobacco Use Start: Unknown Patient has never smoked Exercise Exercises regularly Type/Frequency Exercise 1 was walking but hard Type/Frequency now due to balance issues, does BIG exercises as much as she can Seat Belt/Car Seat always uses seat belt Allergies, Adverse Reactions, Alerts Active Allergies Reaction Severity Comments Date Tramadol Anxiety, Confusion 11/20/2019 Inactive Allergies NKDA 08/21/2012 Medications Active Medications SIG Qnty Indications Ordering Date Provider Carbamazepine 1 po q PM for one 60tabs Nohelia Jiménez MD 11/20/2019 200mg week then Tablets increase to 1 po bid Lyrica 100 mg by mouth 30caps Nohelia Jiménez MD 09/19/2019 100mg Capsules three times daily Walker Auto Glides/5 1 Nohelia Jiménez MD 09/13/2019 Adjustment Holes/-08/22" 1-08/22" [facility] Journey Series Rolling use walker prn 1units R26.89 Nohelia Jiménez MD 09/12 Walker/[id number]-R/Blue [facility] Multivitamin Adults 1 po qd Mvi One Nohelia Jiménez MD 08/29/2019 Tablets Valium 1 by mouth 2 2tabs Tete Alba, 01/29/2016 5mg Tablets hours prior to M.D. mri, may repeat at MRI if still anxious and not sedated. You must have someone else drive. Sinemet take 1.5 pills by Unknown 25-100mg Tablets mouth 3 times daily Curcumin 1 tab po daily Unknown Tab Fish Oil Burp-Less 2 by mouth daily 60caps Unknown 1000mg Capsules Vitamin B1 once a day 90tabs Unknown 100mg Tablets Calcium 600 1 tab po daily Unknown 600mg Tablets Vitamin B-6 1 by mouth every 30tabs Unknown 50mg Tablets day Vitamin B12 1 po qd Unknown 1000mcg Tablets ER Magnesium Oxide 1 po qd 30tabs Unknown 400mg Tablets Vitamin C 1 po qd Unknown 500mg Chewtabs Vitamin D High Potency 2 po qd Unknown 1000Unit Capsules Atenolol 1 po qd 90tabs Unknown 25mg Tablets Amlodipine Besylate 1 po qd 90tabs Unknown 5mg Tablets History Medications Ciprodex 4 drops in 7.500ml Nohelia Jiménez MD 08/31/2019 - 0.3-0.1% affected ear(s) 09/19/2019 Suspension twice a day for 7 days Amitriptyline HCL 1 po qd Nohelia Jiménez MD 08/29/2019 - 10mg 11/12/2019 Tablets Medications Administered in Office Medication SIG Qnty Indications Ordering Provider Date Depomedrol 40MG WISAM Ma 11/06/2015 Injection Depomedrol 40MG Obie Corrales M.D. 09/26/2015 Injection Celestone 3 mg and 3mg Lori Stanton 01/09/2014 Injection Vijay Immunizations CPT Code Status Date Vaccine Lot # [id number] Given 06/20/2019 Influenza Virus Vaccine, Quadrivalent, Split, Im Use 6-35mo 34621 Given 07/31/2018 Tdap - Tetanus/Diptheria/Acellular Pertussis 01889 Given 05/26/2018 Fluzone High Dose 40693 Given 07/18/2017 Influenza Virus Vaccine, Quadrivalent, Split, Im Use 6-35mo 81547 Given 06/25/2016 Influenza Virus Vaccine, Quadrivalent, Split, Im Use 6-35mo 12533 Given 06/26/2015 Pneumococcal Conjugate Vaccine 13 Valent For Intramuscular Use 50559 Given 06/26/2015 Fluzone High Dose 06450 Given 04/24/2014 Zoster (Zostavax) 22903 Given 04/24/2014 Pneumonia Vaccine 42591 Given 04/24/2014 Influenza Virus Vaccine, Split, Preserv Free, Intradermal Use 74663 Given 06/15/2013 Influenza Virus Vaccine, Split, Preserv Free, Intradermal Use Vital Signs Date Vital Result Comment 10/12/2019 2:24pm Height 62 inches 5'2" Weight 160.00 lb Heart Rate 73 /min BP Systolic 131 mmHg BP Diastolic 77 mmHg Body Temperature 97.3 F O2 % BldC Oximetry 95 % BMI (Body Mass Index) 29.3 kg/m2 09/12/2019 8:38am Height 62 inches 5'2" Weight 164.00 lb Heart Rate 73 /min BP Systolic 115 mmHg BP Diastolic 70 mmHg Body Temperature 97.6 F O2 % BldC Oximetry 97 % BMI (Body Mass Index) 30.0 kg/m2 Results Description No Information Available Procedures Date Code Description Status 09/12/2019 37249 Removal F/B Ext Ear W/O Anesthesia Completed 04/09/2014 262645209 Bone Mineral Density Test Completed 04/09/2014 08898309 Mammogram Completed 02/18/2014 91088337 Colonoscopy Completed Medical Devices Description No Information Available Encounters Type Date Location Provider Dx Diagnosis Office Visit 11/14/2019 [facility] Nohelia Jiménez MD G60.9 Hereditary and 10:00a [facility] idiopathic neuropathy, unspecified G20 Parkinson's disease Office Visit 10/12/2019 2:30p [facility] Nohelia Jiménez MD G20 Parkinson's disease [facility] G60.9 Hereditary and idiopathic neuropathy, unspecified R20.2 Paresthesia of skin Office Visit 09/12/2019 8:30a [facility] Nohelia Jiménez MD G20 Parkinson's disease [facility] G60.9 Hereditary and idiopathic neuropathy, unspecified R26.89 Other abnormalities of gait and mobility H61.23 Impacted cerumen, bilateral T16.9xxA Foreign body in ear, unspecified ear, initial encounter Office Visit 08/29/2019 2:00p [facility] Nohelia Jiménez, Z00.01 Encounter for [facility] general adult medical exam w abnormal findings G20 Parkinson's disease G60.9 Hereditary and idiopathic neuropathy, unspecified K59.00 Constipation, unspecified Assessments Date Code Description Provider 11/20/2019 G60.9 Hereditary and idiopathic neuropathy, Nohelia Jiménez MD unspecified 11/20/2019 G20 Parkinson's disease Nohelia Jiménez MD 11/14/2019 G60.9 Hereditary and idiopathic neuropathy, Nohelia Jiménez MD unspecified 11/14/2019 G20 Parkinson's disease Nohelia Jiménez MD 10/12/2019 G20 Parkinson's disease Nohelia Jiménez MD 10/12/2019 G60.9 Hereditary and idiopathic neuropathy, Nohelia Jiménez MD unspecified 10/12/2019 R20.2 Paresthesia of hand Nohelia Jiménez MD 09/12/2019 G20 Parkinson's disease Nohelia Jiménez MD 09/12/2019 G60.9 Hereditary and idiopathic neuropathy, Nohelia Jiménez MD unspecified 09/12/2019 R26.89 Impairment of balance Nohelia Jiménez MD 09/12/2019 H61.23 Impacted cerumen Nohelia Jiménez MD 09/12/2019 T16.9xxA Foreign body in ear Nohelia Jiménez MD 08/29/2019 Z00.01 Encounter for general adult medical examination Nohelia Jiménez MD with abnormal findings 08/29/2019 G20 Parkinson's disease Nohelia Jiménez MD 08/29/2019 G60.9 Hereditary and idiopathic neuropathy, Nohelia Jiménez MD unspecified 08/29/2019 K59.00 Constipation, unspecified Nohelia Jiménez MD Plan of Treatment Future Appointment(s):01/09/2020 9:30 am - Nohelia Jiménez MD at [facility]01/14/2020 1:30 pm - Nohelia Jiménez MD at [facility]11/20/2019 - Nohelia Jiménez MDG60.9 Hereditary and idiopathic neuropathy, unspecifiedComments:And has severe peripheral neuropathy with persistent pain. She is taking Lyrica 100 mg 3 times a day and we have tried multiple other medications. It is not clear how much Lyrica is helping but we will continue it for now. I will check with her pharmacist as to the safety of taking carbamazepine 200 mg twice a day in addition to the Lyrica. Other options to consider are dextromethorphan and phenytoin. I am more reluctant to try baclofen since that is likely to cause issues with balance, confusion, fatigue. Last visit: And his peripheral neuropathic pain is severe and so far not well treated with a variety of medications we have tried. I recommend that she continue Lyrica for now, I agree with stopping the amitriptyline. I think it is okay for her to try the tramadol although we talked about issues with somnolence, incoordination, and addiction. She will try a low dose for the next 2 weeks and we will see how things go. Other medications to consider are carbamazepine, phenytoin, topiramate, baclofen, dextromethorphan. We will re- meet in 2 weeks to discuss this. In addition, she can consider the TENS unit but is probably not worthwhile since she does not of any ongoing relief when she turns off the machine.Follow up:She is scheduled for November 27, we will push this back to December.G20 Parkinson's diseaseComments:Continue current medication Functional Status Description No Information Available Mental Status Description No Information Available Referrals Refer to Reason for Referral Status Appt Date [facility] [address] [place] [address] [phone]
--- OUTSIDE RECORDS SUMMARY | 2019-12-08 15:34 | XMS REPORT ---
:1940 Author Organization [facility] Care Team Providers Name Role Phone Unavailable Unavailable Unavailable Problems Condition Condition Condition Status Onset Resolution Last Treating Comments Name Details Category Date Date Treatment Clinician Date Parkinson's Parkinson's Diagnosis Active Jose disease disease 09-12 Braden, [place] [id number] Hereditary Hereditary Diagnosis Active Jose and and 09-12 Braden, idiopathic idiopathic PT neuropathy, neuropathy, 392836-9 unspecified unspecified Essential Essential Diagnosis Active Jose (primary) (primary) 09-12 Braden, hypertensio hypertensio PT n n 997238-4 Primary Primary Diagnosis Active Jose osteoarthri osteoarthri 09-12 Braden, tis, tis, PT unspecified unspecified 770215-7 ankle and ankle and foot foot Osteoarthri Osteoarthri Diagnosis Active Jose tis of tis of 09-12 Braden, knee, knee, PT unspecified unspecified 384951-1 Generalized Generalized Diagnosis Active Jose anxiety anxiety 09-12 Braden, disorder disorder PT 462531-7 Pure Pure Diagnosis Active Jose hyperglycer hyperglycer Braden, idemia idemia PT 649498-4 Trigger Trigger Diagnosis Active Jose finger, finger, Braden, unspecified unspecified PT finger finger 435999-7 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, syndrome syndrome PT 680117-9 Unspecified Unspecified Diagnosis Active Jose sensorineur sensorineur Braden, 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 332585-1 Other Other Diagnosis Active Jose amnesia amnesia Braden, PT 439620-3 Constipatio Constipatio Diagnosis Active Jose n, n, Braden, unspecified unspecified PT 109048-0 Anesthesia Anesthesia Diagnosis Active Jose of skin of skin Braden, PT 678060-0 Foreign Foreign Diagnosis Active Jose body in body in Braden, ear, ear, PT unspecified unspecified 286929-4 ear, ear, subsequent subsequent encounter encounter Other long Other long Diagnosis Active Jose term term Braden, (current) (current) PT drug drug 527109-3 therapy therapy Pain frequent Pain Mgmt Active 2020-0 Chantel pain 2-06 (Ira) 09:00: Reddy [id number] Respiratory dyspnea Respirator Active 2020-0 Chantel present y 2-06 (Ira) 09:00: Reddy [id number] Sensory impaired Sensory Active 2020-0 Chantel hearing 2-06 (Ira) 09:00: Reddy [id number] Integument skin Integument Active 2020-0 Chantel integrity 2-06 (Ira) risk 09:00: Reddy [id number] Elimination urinary Eliminatio Active 2020-0 Chantel incontinenc n 2-06 (Ira) e 09:00: Barry [id number] Neuro confusion Neuro/Emot Active 2020-0 Chantel present ion 2-06 (Ira) 09:00: Reddy [id number] Neuro anxiety Neuro/Emot Active 2020-0 Chantel present ion 2-06 (Ira) 09:00: Barry [id number] Neuro impaired Neuro/Emot Active 2020-0 Chantel decision-ma ion 2-06 (Ira) gogo 09:00: Barry [id number] Neuro memory Neuro/Emot Active 2020-0 Chantel deficit ion 2-06 (Ira) needing 09:00: Barry supervision 00 [id number] Activity ADL Activity Active 2020-0 Chantel assistance 2-06 (Ira) required 09:00: Reddy [id number] Activity self-care Activity Active 2020-0 Chantel deficit 2-06 (Ira) 09:00: Barry [id number] Safety fall risk Safety Active 2020-0 Chantel factor 2-06 (Ira) present 09:00: Reddy [id number] Safety risk for Safety Active 2020-0 Chantel hospitaliza 2-06 (Ira) tion 09:00: Reddy [id number] Safety can be left Safety Active 2020-0 Chantel alone for 2-06 (Ira) only short 09:00: Barry periods 00 [id number] Medication oral med Meds Active 2020-0 Chantel assistance 2-06 (Ira) required 09:00: Reddy [id number] Medication potential Meds Active 2020-0 Chantel clinically 2-06 (Ira) significant 09:00: Barry medication 00 [id number] issue Musculoskel transfer Musculoske Active 2020-0 Chantel etal assistance letal 2 (Ira) required 09:00: Reddy [id number] Musculoskel knowledge/s Musculoske Active 2020-0 Chantel etal kill letal 2 (Ira) deficit: pt 09:00: Reddy [id number] Musculoskel requires Musculoske Active 2020-0 Chantel etal human letal 2 (Ira) assist to 09:00: Reddy leave home [id number] Bed transfer PT/OT: Bed Active 2020-0 Jose Mobility/Tr deficit: Mobility/T 2-06 hector Feliciano sit/stand ransfer 11:30: PT 00 814616-9 Bed transfer PT/OT: Bed Active 2020-0 Jose Mobility/Tr deficit: Mobility/T 2-06 hector Feliciano standing ransfer 11:30: PT pivot 00 179763-7 Bed transfer PT/OT: Bed Active 2020-0 Jose Mobility/Tr deficit: Mobility/T 2-06 hector Feliciano toilet/comm ransfer 11:30: PT ode 00 505471-8 Bed transfer PT/OT: Bed Active 2020-0 Jose Mobility/Tr deficit: Mobility/T 2-06 hector Felciiano shower/tub ransfer 11:30: PT 00 566943-3 Bed knowledge/s PT/OT: Bed Active 2020-0 Jose Mobility/Tr kill Mobility/T 2-06 hector Feliciano deficit: pt ransfer 11:30: PT 00 655153-5 Bed bed PT/OT: Bed Active 2020-0 Jose Mobility/Tr mobility Mobility/T 2-06 hector Feliciano deficit ransfer 11:30: PT 00 973351-9 Gait/Locomo gait PT/OT: Active 2020-0 Jose tion assistive Gait/Locom 2-06 Braden, problems device otion 11:30: PT present 00 083335-8 Gait/Locomo knowledge/s PT/OT: Active 2020-0 Jose tion kill Gait/Locom 2-06 Braden, problems deficit: pt otion 11:30: PT 00 524259-5 Gait/Locomo knowledge/s PT/OT: Active 2020-0 Jose tion kill Gait/Locom 2-06 Braden, problems deficit: cg otion 11:30: PT 00 616894-3 Gait/Locomo gait PT/OT: Active Jose tion deficit Gait/Locom 09-20 Braden, problems otion 11:30: PT 531523-3 Allergies, Adverse Reactions, Alerts Allergy Allergy Status [...]
--- OUTSIDE RECORDS SUMMARY | 2019-12-08 15:34 | XMS REPORT ---
:1939 Author Organization [facility] Care Team Providers Name Role Phone Unavailable Unavailable Unavailable Problems Condition Condition Condition Status Onset Resolution Last Treating Comments Name Details Category Date Date Treatment Clinician Date Rhabdomyoly Rhabdomyoly Diagnosis Active Madeline sis sis 4-22 Wendela [id number] Allergies, Adverse Reactions, Alerts Allergy Allergy Status Severity Reaction(s) Onset Inactive Treating Comments Name Type Date Date Clinician Unknown None Active Unknown None Unknown No Known Allergies For This Patient Medications Ordered Filled Start Stop Current Ordering Indication Dosage Frequency Signature Comments Components Medication Medication Date Date Medication? Clinician (SIG) Name Name No Known No Known No None None None Medications Medications For This For This Patient Patient Procedures This patient has no known procedures. Results This patient has no known results.
--- OUTSIDE RECORDS SUMMARY | 2019-12-08 15:34 | XMS REPORT ---
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 Braden, idiopathic idiopathic PT neuropathy, neuropathy, 359779-4 unspecified unspecified Essential Essential Diagnosis Active Jose (primary) (primary) 09-12 Braden, hypertensio hypertensio PT n n 684079-6 Primary Primary Diagnosis Active Jose osteoarthri osteoarthri 09-12 Braden, tis, tis, PT unspecified unspecified 398640-5 ankle and ankle and foot foot Osteoarthri Osteoarthri Diagnosis Active Jose tis of tis of 09-12 Braden, knee, knee, PT unspecified unspecified 953012-3 Generalized Generalized Diagnosis Active Jose anxiety anxiety 09-12 Braden, disorder disorder PT 828599-3 Pure Pure Diagnosis Active Jose hyperglycer hyperglycer Braden, idemia idemia PT 324263-6 Trigger Trigger Diagnosis Active Jose finger, finger, Braden, unspecified unspecified PT finger finger 281590-2 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, syndrome syndrome PT 738203-9 Unspecified Unspecified Diagnosis Active Jose sensorineur sensorineur Braden, 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 399067-1 Other Other Diagnosis Active Jose amnesia amnesia Braden, PT 999268-4 Constipatio Constipatio Diagnosis Active Jose n, n, Braden, unspecified unspecified PT 951380-0 Anesthesia Anesthesia Diagnosis Active Jose of skin of skin Braden, PT 356099-4 Foreign Foreign Diagnosis Active Jose body in body in Braden, ear, ear, PT unspecified unspecified 718724-6 ear, ear, subsequent subsequent encounter encounter Other long Other long Diagnosis Active Jose term term Braden, (current) (current) PT drug drug 861089-0 therapy therapy Pain frequent Pain Mgmt Active 2020-0 Chantel pain 2-06 (Ira) 09:00: Reddy [id number] Respiratory dyspnea Respirator Active 2020-0 Chantel present y 2-06 (Ira) 09:00: Reddy [id number] Sensory impaired Sensory Active 2020-0 Chantel hearing 2-06 (Ira) 09:00: Reddy [id number] Integument skin Integument Active 2020-0 Chantel integrity 2-06 (Ira) risk 09:00: Reddy [id number] Elimination urinary Eliminatio Active 2020-0 Chantel incontinenc n 2-06 (Ira) e 09:00: Barry [id number] Neuro confusion Neuro/Emot Active 2020-0 Chantel present ion 2-06 (Ira) 09:00: Reddy [id number] Neuro anxiety Neuro/Emot Active 2020-0 Chantel present ion 2-06 (Ira) 09:00: Barry [id number] Neuro impaired Neuro/Emot Active 2020-0 Chantel decision-ma ion 2-06 (Ira) gogo 09:00: Barry [id number] Neuro memory Neuro/Emot Active 2020-0 Chantel deficit ion 2-06 (Ira) needing 09:00: Barry supervision 00 [id number] Activity ADL Activity Active 2020-0 Chantel assistance 2-06 (Ira) required 09:00: Reddy [id number] Activity self-care Activity Active 2020-0 Chantel deficit 2-06 (Ira) 09:00: Barry [id number] Safety fall risk Safety Active 2020-0 Chantel factor 2-06 (Ira) present 09:00: Reddy [id number] Safety risk for Safety Active 2020-0 Chantel hospitaliza 2-06 (Ira) tion 09:00: Reddy [id number] Safety can be left Safety Active 2020-0 Chantel alone for 2-06 (Ira) only short 09:00: Barry periods 00 [id number] Medication oral med Meds Active 2020-0 Chantel assistance 2-06 (Ira) required 09:00: Reddy [id number] Medication potential Meds Active 2020-0 Chantel clinically 2-06 (Ira) significant 09:00: Barry medication 00 [id number] issue Musculoskel transfer Musculoske Active 2020-0 Chantel etal assistance letal 2 (Ira) required 09:00: Reddy [id number] Musculoskel knowledge/s Musculoske Active 2020-0 Chantel etal kill letal 2 (Ira) deficit: pt 09:00: Reddy [id number] Musculoskel requires Musculoske Active 2020-0 Chantel etal human letal 2 (Ira) assist to 09:00: Reddy leave home [id number] Bed transfer PT/OT: Bed Active 2020-0 Jose Mobility/Tr deficit: Mobility/T 2-06 hector Feliciano sit/stand ransfer 11:30: PT 00 732158-8 Bed transfer PT/OT: Bed Active 2020-0 Jose Mobility/Tr deficit: Mobility/T 2-06 hector Feliciano standing ransfer 11:30: PT pivot 00 [id number] Bed transfer PT/OT: Bed Active 2020-0 Jose Mobility/Tr deficit: Mobility/T 2-06 hector Feliciano toilet/comm ransfer 11:30: PT ode 00 508042-2 Bed transfer PT/OT: Bed Active 2020-0 Jose Mobility/Tr deficit: Mobility/T 2-06 hector Feliciano shower/tub ransfer 11:30: PT 00 862587-7 Bed knowledge/s PT/OT: Bed Active 2020-0 Jose Mobility/Tr kill Mobility/T 2-06 hector Feliciano deficit: pt ransfer 11:30: PT 00 521498-5 Bed bed PT/OT: Bed Active 2020-0 Jose Mobility/Tr mobility Mobility/T 2-06 hector Feliciano deficit ransfer 11:30: PT 00 958989-6 Gait/Locomo gait PT/OT: Active 2020-0 Jose tion assistive Gait/Locom 2-06 Braden, problems device otion 11:30: PT present 00 999608-3 Gait/Locomo knowledge/s PT/OT: Active 2020-0 Jose tion kill Gait/Locom 2-06 Braden, problems deficit: pt otion 11:30: PT 00 [id number] Gait/Locomo knowledge/s PT/OT: Active 2020-0 Jose tion kill Gait/Locom 2-06 Braden, problems deficit: cg otion 11:30: PT 00 730299-0 Gait/Locomo gait PT/OT: Active Jose tion deficit Gait/Locom 09-20 Braden, problems otion 11:30: PT 544055-1 Allergies, Adverse Reactions, Alerts Allergy Allergy Status [...] Unknown Unknown mg tablet mg tablet 09-20 oNhelia TAPIA Vitamin C Vitamin C Yes LaFace [...]
--- OUTSIDE RECORDS SUMMARY | 2019-12-08 15:34 | XMS REPORT ---
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, idiopathic idiopathic PT neuropathy, neuropathy, [id number] unspecified unspecified Essential Essential Diagnosis Active Jose (primary) (primary) 09-12 Braden, hypertensio hypertensio PT n n 238087-4 Primary Primary Diagnosis Active Jose osteoarthri osteoarthri 09-12 Braden, tis, tis, PT unspecified unspecified 377760-7 ankle and ankle and foot foot Osteoarthri Osteoarthri Diagnosis Active Jose tis of tis of 09-12 Braden, knee, knee, PT unspecified unspecified 165903-0 Generalized Generalized Diagnosis Active Jose anxiety anxiety 09-12 Braden, disorder disorder PT 895717-0 Pure Pure Diagnosis Active Jose hyperglycer hyperglycer Braden, idemia idemia PT 626058-2 Trigger Trigger Diagnosis Active Jose finger, finger, Braden, unspecified unspecified PT finger finger 022920-5 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, syndrome syndrome PT 710032-7 Unspecified Unspecified Diagnosis Active Jose sensorineur sensorineur Braedn, 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 882382-0 Other Other Diagnosis Active Jose amnesia amnesia Braden, PT 758438-5 Constipatio Constipatio Diagnosis Active oJse n, n, Braden, unspecified unspecified PT 180441-2 Anesthesia Anesthesia Diagnosis Active Jose of skin of skin Braden, PT 043515-7 Foreign Foreign Diagnosis Active Jose body in body in Braden, ear, ear, PT unspecified unspecified 527605-4 ear, ear, subsequent subsequent encounter encounter Other long Other long Diagnosis Active Jose term term Braden, (current) (current) PT drug drug 807270-5 therapy therapy Pain frequent Pain Mgmt Active 2020-0 Chantel pain 2-06 (Ira) 09:00: Reddy [id number] Respiratory dyspnea Respirator Active 2020-0 Chantel present y 2-06 (Ira) 09:00: Reddy [id number] Sensory impaired Sensory Active 2020-0 Chantel hearing 2-06 (Ira) 09:00: Reddy [id number] Integument skin Integument Active 2020-0 Chantel integrity 2-06 (Ira) risk 09:00: Reddy [id number] Elimination urinary Eliminatio Active 2020-0 Chantel incontinenc n 2-06 (Ira) e 09:00: Barry [id number] Neuro confusion Neuro/Emot Active 2020-0 Chantel present ion 2-06 (Ira) 09:00: Reddy [id number] Neuro anxiety Neuro/Emot Active 2020-0 Chantel present ion 2-06 (Ira) 09:00: Barry [id number] Neuro impaired Neuro/Emot Active 2020-0 Chantel decision-ma ion 2-06 (Ira) gogo 09:00: Barry [id number] Neuro memory Neuro/Emot Active 2020-0 Chantel deficit ion 2-06 (Ira) needing 09:00: Barry supervision 00 [id number] Activity ADL Activity Active 2020-0 Chantel assistance 2-06 (Ira) required 09:00: Reddy [id number] Activity self-care Activity Active 2020-0 Chantel deficit 2-06 (Ira) 09:00: Barry [id number] Safety fall risk Safety Active 2020-0 Chantel factor 2-06 (Ira) present 09:00: Reddy [id number] Safety risk for Safety Active 2020-0 Chantel hospitaliza 2-06 (Ira) tion 09:00: Reddy [id number] Safety can be left Safety Active 2020-0 Chantel alone for 2-06 (Ira) only short 09:00: Barry periods 00 [id number] Medication oral med Meds Active 2020-0 Chantel assistance 2-06 (Ira) required 09:00: Reddy [id number] Medication potential Meds Active 2020-0 Chantel clinically 2-06 (Ira) significant 09:00: Barry medication 00 [id number] issue Musculoskel transfer Musculoske Active 2020-0 Chantel etal assistance letal 2 (Ira) required 09:00: Reddy [id number] Musculoskel knowledge/s Musculoske Active 2020-0 Chantel etal kill letal 2 (Ira) deficit: pt 09:00: Reddy [id number] Musculoskel requires Musculoske Active 2020-0 Chantel etal human letal 2 (Ira) assist to 09:00: Reddy leave home [id number] Bed transfer PT/OT: Bed Active 2020-0 Jose Mobility/Tr deficit: Mobility/T 2-06 hector Feliciano sit/stand ransfer 11:30: PT 00 527055-4 Bed transfer PT/OT: Bed Active 2020-0 Jose Mobility/Tr deficit: Mobility/T 2-06 hector Feliciano standing ransfer 11:30: PT pivot 00 640315-2 Bed transfer PT/OT: Bed Active 2020-0 Jose Mobility/Tr deficit: Mobility/T 2-06 hector Feliciano toilet/comm ransfer 11:30: PT ode 00 189167-8 Bed transfer PT/OT: Bed Active 2020-0 Jose Mobility/Tr deficit: Mobility/T 2-06 hector Feliciano shower/tub ransfer 11:30: PT 00 498799-9 Bed knowledge/s PT/OT: Bed Active 2020-0 Jose Mobility/Tr kill Mobility/T 2-06 hector Feliciano deficit: pt ransfer 11:30: PT 00 739685-5 Bed bed PT/OT: Bed Active 2020-0 Jose Mobility/Tr mobility Mobility/T 2-06 ehctor Feliciano deficit ransfer 11:30: PT 00 134182-8 Gait/Locomo gait PT/OT: Active 2020-0 Jose tion assistive Gait/Locom 2-06 Braden, problems device otion 11:30: PT present 00 804273-4 Gait/Locomo knowledge/s PT/OT: Active 2020-0 Jose tion kill Gait/Locom 2-06 Braden, problems deficit: pt otion 11:30: PT 00 044444-7 Gait/Locomo knowledge/s PT/OT: Active 2020-0 Jose tion kill Gait/Locom 2-06 Braden, problems deficit: cg otion 11:30: PT 00 436428-6 Gait/Locomo gait PT/OT: Active Jose tion deficit Gait/Locom 09-20 Braden, problems otion 11:30: PT 252860-5 Allergies, Adverse Reactions, Alerts Allergy Allergy Status [...] 5 mg tablet 5 mg tablet 09-20 Nohleia TAPIA atenolol 25 atenolol 25 Yes LaFace [...]
--- OUTSIDE RECORDS SUMMARY | 2019-12-08 15:34 | XMS REPORT ---
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, idiopathic idiopathic PT neuropathy, neuropathy, 976294-2 unspecified unspecified Essential Essential Diagnosis Active Jose (primary) (primary) 09-12 Braden, hypertensio hypertensio PT n n 297279-6 Primary Primary Diagnosis Active Jose osteoarthri osteoarthri 09-12 Braden, tis, tis, PT unspecified unspecified 694748-0 ankle and ankle and foot foot Osteoarthri Osteoarthri Diagnosis Active Jose tis of tis of 09-12 Braden, knee, knee, PT unspecified unspecified 974307-5 Generalized Generalized Diagnosis Active Jose anxiety anxiety 09-12 Braden, disorder disorder PT 901740-1 Pure Pure Diagnosis Active Jose hyperglycer hyperglycer Braden, idemia idemia PT 005122-7 Trigger Trigger Diagnosis Active Jose finger, finger, Braden, unspecified unspecified PT finger finger 548332-1 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, syndrome syndrome PT 067475-7 Unspecified Unspecified Diagnosis Active Jose sensorineur sensorineur Braden, 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 182289-0 Other Other Diagnosis Active Jose amnesia amnesia Braden, PT 700254-8 Constipatio Constipatio Diagnosis Active Jose n, n, Braden, unspecified unspecified PT 249433-7 Anesthesia Anesthesia Diagnosis Active Jose of skin of skin Braden, PT 637627-0 Foreign Foreign Diagnosis Active Jose body in body in Braden, ear, ear, PT unspecified unspecified 823384-7 ear, ear, subsequent subsequent encounter encounter Other long Other long Diagnosis Active Jose term term Braden, (current) (current) PT drug drug 760972-8 therapy therapy Pain frequent Pain Mgmt Active 2020-0 Chantel pain 2-06 (Ira) 09:00: Reddy [id number] Respiratory dyspnea Respirator Active 2020-0 Chantel present y 2-06 (Ira) 09:00: Reddy [id number] Sensory impaired Sensory Active 2020-0 Chantel hearing 2-06 (Ira) 09:00: Reddy [id number] Integument skin Integument Active 2020-0 Chantel integrity 2-06 (Ira) risk 09:00: Reddy [id number] Elimination urinary Eliminatio Active 2020-0 Chantel incontinenc n 2-06 (Ira) e 09:00: Barry [id number] Neuro confusion Neuro/Emot Active 2020-0 Chantel present ion 2-06 (Ira) 09:00: Reddy [id number] Neuro anxiety Neuro/Emot Active 2020-0 Chantel present ion 2-06 (Ira) 09:00: Barry [id number] Neuro impaired Neuro/Emot Active 2020-0 Chantel decision-ma ion 2-06 (Ira) gogo 09:00: Barry [id number] Neuro memory Neuro/Emot Active 2020-0 Chantel deficit ion 2-06 (Ira) needing 09:00: Barry supervision 00 [id number] Activity ADL Activity Active 2020-0 Chnatel assistance 2-06 (Ira) required 09:00: Reddy [id number] Activity self-care Activity Active 2020-0 Chantel deficit 2-06 (Ira) 09:00: Barry [id number] Safety fall risk Safety Active 2020-0 Chantel factor 2-06 (Ira) present 09:00: Reddy [id number] Safety risk for Safety Active 2020-0 Chantel hospitaliza 2-06 (Ira) tion 09:00: Reddy [id number] Safety can be left Safety Active 2020-0 Chantel alone for 2-06 (Ira) only short 09:00: Barry periods 00 [id number] Medication oral med Meds Active 2020-0 Chantel assistance 2-06 (Ira) required 09:00: Reddy [id number] Medication potential Meds Active 2020-0 Chantel clinically 2-06 (Ira) significant 09:00: Barry medication 00 [id number] issue Musculoskel transfer Musculoske Active 2020-0 Chantel etal assistance letal 2 (Ira) required 09:00: Reddy [id number] Musculoskel knowledge/s Musculoske Active 2020-0 Chantel etal kill letal 2 (Ira) deficit: pt 09:00: Reddy [id number] Musculoskel requires Musculoske Active 2020-0 Chantel etal human letal 2 (Ira) assist to 09:00: Reddy leave home [id number] Bed transfer PT/OT: Bed Active 2020-0 Jose Mobility/Tr deficit: Mobility/T 2-06 hector Feliciano sit/stand ransfer 11:30: PT 00 648891-5 Bed transfer PT/OT: Bed Active 2020-0 Joes Mobility/Tr deficit: Mobility/T 2-06 hector Feliciano standing ransfer 11:30: PT pivot 00 676900-2 Bed transfer PT/OT: Bed Active 2020-0 Jose Mobility/Tr deficit: Mobility/T 2-06 hector Feliciano toilet/comm ransfer 11:30: PT ode 00 083835-4 Bed transfer PT/OT: Bed Active 2020-0 Jose Mobility/Tr deficit: Mobility/T 2-06 hector Feliciano shower/tub ransfer 11:30: PT 00 313753-6 Bed knowledge/s PT/OT: Bed Active 2020-0 Jose Mobility/Tr kill Mobility/T 2-06 hector Feliciano deficit: pt ransfer 11:30: PT 00 896393-8 Bed bed PT/OT: Bed Active 2020-0 Jose Mobility/Tr mobility Mobility/T 2-06 hector Feliciano deficit ransfer 11:30: PT 00 [id number] Gait/Locomo gait PT/OT: Active 2020-0 Jose tion assistive Gait/Locom 2-06 Braden, problems device otion 11:30: PT present 00 695752-0 Gait/Locomo knowledge/s PT/OT: Active 2020-0 Jose tion kill Gait/Locom 2-06 Braden, problems deficit: pt otion 11:30: PT 00 949152-7 Gait/Locomo knowledge/s PT/OT: Active 2020-0 Jose tion kill Gait/Locom 2-06 Braden, problems deficit: cg otion 11:30: PT 00 359757-7 Gait/Locomo gait PT/OT: Active Jsoe tion deficit Gait/Locom 09-20 Braden, problems otion 11:30: PT 023727-8 Allergies, Adverse Reactions, Alerts Allergy Allergy Status [...]
--- OUTSIDE RECORDS SUMMARY | 2019-12-08 15:34 | XMS REPORT ---
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, idiopathic idiopathic PT neuropathy, neuropathy, 472177-0 unspecified unspecified Essential Essential Diagnosis Active Jose (primary) (primary) 09-12 Braden, hypertensio hypertensio PT n n 232992-9 Primary Primary Diagnosis Active Jose osteoarthri osteoarthri 09-12 Braden, tis, tis, PT unspecified unspecified 117975-7 ankle and ankle and foot foot Osteoarthri Osteoarthri Diagnosis Active Jose tis of tis of 09-12 Braden, knee, knee, PT unspecified unspecified 682265-3 Generalized Generalized Diagnosis Active Jose anxiety anxiety 09-12 Braden, disorder disorder PT 785006-6 Pure Pure Diagnosis Active Jose hyperglycer hyperglycer Braden, idemia idemia PT 317731-5 Trigger Trigger Diagnosis Active Jose finger, finger, Braden, unspecified unspecified PT finger finger 185399-9 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, syndrome syndrome PT 853877-1 Unspecified Unspecified Diagnosis Active Jose sensorineur sensorineur Braden, 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 463807-8 Other Other Diagnosis Active Jose amnesia amnesia Braden, PT 172332-5 Constipatio Constipatio Diagnosis Active Jose n, n, Braden, unspecified unspecified PT 478963-3 Anesthesia Anesthesia Diagnosis Active Jose of skin of skin Braden, PT 580866-6 Foreign Foreign Diagnosis Active Jose body in body in Braden, ear, ear, PT unspecified unspecified 424354-2 ear, ear, subsequent subsequent encounter encounter Other long Other long Diagnosis Active Jose term term Braden, (current) (current) PT drug drug 334736-2 therapy therapy Pain frequent Pain Mgmt Active 2020-0 Chantel pain 2-06 (Ira) 09:00: Reddy [id number] Respiratory dyspnea Respirator Active 2020-0 Chantel present y 2-06 (Ira) 09:00: Reddy [id number] Sensory impaired Sensory Active 2020-0 Chantel hearing 2-06 (Ira) 09:00: Reddy [id number] Integument skin Integument Active 2020-0 Chantel integrity 2-06 (Ira) risk 09:00: Reddy [id number] Elimination urinary Eliminatio Active 2020-0 Chantel incontinenc n 2-06 (Ira) e 09:00: Barry [id number] Neuro confusion Neuro/Emot Active 2020-0 Chantel present ion 2-06 (Ira) 09:00: Reddy [id number] Neuro anxiety Neuro/Emot Active 2020-0 Chantel present ion 2-06 (Ira) 09:00: Barry [id number] Neuro impaired Neuro/Emot Active 2020-0 Chantel decision-ma ion 2-06 (Ira) gogo 09:00: Barry [id number] Neuro memory Neuro/Emot Active 2020-0 Chantel deficit ion 2-06 (Ira) needing 09:00: Barry supervision 00 [id number] Activity ADL Activity Active 2020-0 Chantel assistance 2-06 (Ira) required 09:00: Reddy [id number] Activity self-care Activity Active 2020-0 Chantel deficit 2-06 (Ira) 09:00: Barry [id number] Safety fall risk Safety Active 2020-0 Chantel factor 2-06 (Ira) present 09:00: Reddy [id number] Safety risk for Safety Active 2020-0 Chantel hospitaliza 2-06 (Ira) tion 09:00: Reddy [id number] Safety can be left Safety Active 2020-0 Chantel alone for 2-06 (Ira) only short 09:00: Barry periods 00 [id number] Medication oral med Meds Active 2020-0 Chantel assistance 2-06 (Ira) required 09:00: Reddy [id number] Medication potential Meds Active 2020-0 Chantel clinically 2-06 (Ira) significant 09:00: Barry medication 00 [id number] issue Musculoskel transfer Musculoske Active 2020-0 Chantel etal assistance letal 2 (Ira) required 09:00: Reddy [id number] Musculoskel knowledge/s Musculoske Active 2020-0 Chantel etal kill letal 2 (Ira) deficit: pt 09:00: Reddy [id number] Musculoskel requires Musculoske Active 2020-0 Chantel etal human letal 2 (Ira) assist to 09:00: Reddy leave home [id number] Bed transfer PT/OT: Bed Active 2020-0 Jose Mobility/Tr deficit: Mobility/T 2-06 hector Feliciano sit/stand ransfer 11:30: PT 00 174095-6 Bed transfer PT/OT: Bed Active 2020-0 Jose Mobility/Tr deficit: Mobility/T 2-06 hector Feliciano standing ransfer 11:30: PT pivot 00 879666-0 Bed transfer PT/OT: Bed Active 2020-0 Jose Mobility/Tr deficit: Mobility/T 2-06 hector Feliciano toilet/comm ransfer 11:30: PT ode 00 778210-1 Bed transfer PT/OT: Bed Active 2020-0 Jose Mobility/Tr deficit: Mobility/T 2-06 hector Feliciano shower/tub ransfer 11:30: PT 00 178578-9 Bed knowledge/s PT/OT: Bed Active 2020-0 Jose Mobility/Tr kill Mobility/T 2-06 hector Feliciano deficit: pt ransfer 11:30: PT 00 960353-9 Bed bed PT/OT: Bed Active 2020-0 Jose Mobility/Tr mobility Mobility/T 2-06 hector Feliciano deficit ransfer 11:30: PT 00 841189-3 Gait/Locomo gait PT/OT: Active 2020-0 Jose tion assistive Gait/Locom 2-06 Braden, problems device otion 11:30: PT present 00 936859-0 Gait/Locomo knowledge/s PT/OT: Active 2020-0 Jose tion kill Gait/Locom 2-06 Braden, problems deficit: pt otion 11:30: PT 00 253914-2 Gait/Locomo knowledge/s PT/OT: Active 2020-0 Jose tion kill Gait/Locom 2-06 Braden, problems deficit: cg otion 11:30: PT 00 630853-6 Gait/Locomo gait PT/OT: Active Jose tion deficit Gait/Locom 09-20 Braden, problems otion 11:30: PT 656931-6 Allergies, Adverse Reactions, Alerts Allergy Allergy Status [...]
--- OUTSIDE RECORDS SUMMARY | 2019-12-08 15:34 | XMS REPORT ---
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, idiopathic idiopathic PT neuropathy, neuropathy, 903251-6 unspecified unspecified Essential Essential Diagnosis Active Jose (primary) (primary) 09-12 Braden, hypertensio hypertensio PT n n 579921-2 Primary Primary Diagnosis Active Jose osteoarthri osteoarthri 09-12 Braden, tis, tis, PT unspecified unspecified 967358-5 ankle and ankle and foot foot Osteoarthri Osteoarthri Diagnosis Active Jose tis of tis of 09-12 Braden, knee, knee, PT unspecified unspecified 251823-8 Generalized Generalized Diagnosis Active Jose anxiety anxiety 09-12 Braden, disorder disorder PT 043435-2 Pure Pure Diagnosis Active Jose hyperglycer hyperglycer Braden, idemia idemia PT 161172-1 Trigger Trigger Diagnosis Active Jose finger, finger, Braden, unspecified unspecified PT finger finger 469303-5 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, syndrome syndrome PT 964243-1 Unspecified Unspecified Diagnosis Active Jose sensorineur sensorineur Braden, 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 734013-3 Other Other Diagnosis Active Jose amnesia amnesia Braden, PT 630502-3 Constipatio Constipatio Diagnosis Active Jose n, n, Braden, unspecified unspecified PT 795964-7 Anesthesia Anesthesia Diagnosis Active Jose of skin of skin Braden, PT 784915-1 Foreign Foreign Diagnosis Active Jose body in body in Braden, ear, ear, PT unspecified unspecified 020442-5 ear, ear, subsequent subsequent encounter encounter Other long Other long Diagnosis Active Jose term term Braden, (current) (current) PT drug drug 071017-8 therapy therapy Pain frequent Pain Mgmt Active 2020-0 Chantel pain 2-06 (Ira) 09:00: Reddy [id number] Respiratory dyspnea Respirator Active 2020-0 Chantel present y 2-06 (Ira) 09:00: Reddy [id number] Sensory impaired Sensory Active 2020-0 Chantel hearing 2-06 (Ira) 09:00: Reddy [id number] Integument skin Integument Active 2020-0 Chantel integrity 2-06 (Ira) risk 09:00: Reddy [id number] Elimination urinary Eliminatio Active 2020-0 Chantel incontinenc n 2-06 (Ria) e 09:00: Barry [id number] Neuro confusion Neuro/Emot Active 2020-0 Chantel present ion 2-06 (Ira) 09:00: Reddy [id number] Neuro anxiety Neuro/Emot Active 2020-0 Chantel present ion 2-06 (Ira) 09:00: Barry [id number] Neuro impaired Neuro/Emot Active 2020-0 Chantel decision-ma ion 2-06 (Ira) gogo 09:00: Barry [id number] Neuro memory Neuro/Emot Active 2020-0 Chantel deficit ion 2-06 (Ira) needing 09:00: Barry supervision 00 [id number] Activity ADL Activity Active 2020-0 Chantel assistance 2-06 (Ira) required 09:00: Reddy [id number] Activity self-care Activity Active 2020-0 Chantel deficit 2-06 (Ira) 09:00: Barry [id number] Safety fall risk Safety Active 2020-0 Chantel factor 2-06 (Ira) present 09:00: Reddy [id number] Safety risk for Safety Active 2020-0 Chantel hospitaliza 2-06 (Ira) tion 09:00: Reddy [id number] Safety can be left Safety Active 2020-0 Chantel alone for 2-06 (Ira) only short 09:00: Barry periods 00 [id number] Medication oral med Meds Active 2020-0 Chantel assistance 2-06 (Ira) required 09:00: Reddy [id number] Medication potential Meds Active 2020-0 Chantel clinically 2-06 (Ira) significant 09:00: Barry medication 00 [id number] issue Musculoskel transfer Musculoske Active 2020-0 Chantel etal assistance letal 2 (Ira) required 09:00: Reddy [id number] Musculoskel knowledge/s Musculoske Active 2020-0 Chantel etal kill letal 2 (Ira) deficit: pt 09:00: Reddy [id number] Musculoskel requires Musculoske Active 2020-0 Chantel etal human letal 2 (Ira) assist to 09:00: Reddy leave home [id number] Bed transfer PT/OT: Bed Active 2020-0 Jose Mobility/Tr deficit: Mobility/T 2-06 hector Feliciano sit/stand ransfer 11:30: PT 00 939754-2 Bed transfer PT/OT: Bed Active 2020-0 Jose Mobility/Tr deficit: Mobility/T 2-06 hector Feliciano standing ransfer 11:30: PT pivot 00 527550-3 Bed transfer PT/OT: Bed Active 2020-0 Jose Mobility/Tr deficit: Mobility/T 2-06 hector Feliciano toilet/comm ransfer 11:30: PT ode 00 374608-3 Bed transfer PT/OT: Bed Active 2020-0 Jose Mobility/Tr deficit: Mobility/T 2-06 hector Feliciano shower/tub ransfer 11:30: PT 00 750294-1 Bed knowledge/s PT/OT: Bed Active 2020-0 Jose Mobility/Tr kill Mobility/T 2-06 hector Feliciano deficit: pt ransfer 11:30: PT 00 620781-9 Bed bed PT/OT: Bed Active 2020-0 Jose Mobility/Tr mobility Mobility/T 2-06 hector Feliciano deficit ransfer 11:30: PT 00 493440-5 Gait/Locomo gait PT/OT: Active 2020-0 Jose tion assistive Gait/Locom 2-06 Braden, problems device otion 11:30: PT present 00 418090-3 Gait/Locomo knowledge/s PT/OT: Active 2020-0 Jose tion kill Gait/Locom 2-06 Braden, problems deficit: pt otion 11:30: PT 00 530080-8 Gait/Locomo knowledge/s PT/OT: Active 2020-0 Jose tion kill Gait/Locom 2-06 Braden, problems deficit: cg otion 11:30: PT 00 279750-5 Gait/Locomo gait PT/OT: Active Jose tion deficit Gait/Locom 09-20 Braden, problems otion 11:30: PT 771784-8 Allergies, Adverse Reactions, Alerts Allergy Allergy Status [...] Unknown Unknown 50 mg 50 mg 09-20 Noheila TAPIA tablet tablet Calcium 600 Calcium 600 [...]
--- OUTSIDE RECORDS SUMMARY | 2019-12-08 15:34 | XMS REPORT | Continuity of Care Document ---
:1940 External Reference #:[id number] Author Name Nohelia Jiménez MD (transmitted by agent of provider November) Address [address] , [place] [address] Care Team Providers Name Role Phone Nohelia Jiménez MD - Family Medicine Care Team Information Product Specialist [phone] Problems Active Problems Provider Date Parkinson's disease Tete Alba M.D. Onset: 08/26/2014 Idiopathic small fiber peripheral [...] Nohelia Jiménez MD 09/13/2019 Adjustment Holes/-08/22" 1-08/22" [facility] Journey Series Rolling use walker prn 1units R26.89 Nohelia Jiménez MD 09/12 Walker/4205BL-R/Blue [facility] Multivitamin Adults 1 po qd Mvi One [...] CPT Code Status Date Vaccine Lot # [id number] Given 06/20/2019 Influenza Virus Vaccine, Quadrivalent, Split, Im Use 6-35mo 08913 Given 07/31/2018 Tdap - Tetanus/Diptheria/Acellular Pertussis 52151 Given 05/26/2018 Fluzone High Dose 42876 Given 07/18/2017 Influenza Virus Vaccine, Quadrivalent, Split, Im Use 6-35mo 55745 Given 06/25/2016 Influenza Virus Vaccine, Quadrivalent, Split, Im Use 6-35mo 35775 Given 06/26/2015 Pneumococcal Conjugate Vaccine 13 Valent For Intramuscular Use 09371 Given 06/26/2015 Fluzone High Dose 34467 Given 04/24/2014 Zoster (Zostavax) 28053 Given 04/24/2014 Pneumonia Vaccine 15008 Given 04/24/2014 Influenza Virus Vaccine, Split, Preserv Free, Intradermal Use 39884 Given 06/15/2013 Influenza Virus Vaccine, Split, Preserv [...] Available Procedures Date Code Description Status 09/12/2019 62934 Removal F/B Ext Ear W/O Anesthesia Completed 04/09/2014 [id number] Bone Mineral Density Test Completed 04/09/2014 [id number] Mammogram Completed 02/18/2014 08638364 Colonoscopy Completed Medical Devices Description No Information Available Encounters Type Date Location Provider Dx Diagnosis Office Visit 11/20/2019 [facility] Nohelia Jiménez MD 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, unspecified G20 Parkinson's disease Office Visit 11/14/2019 10:00a [facility] Ivory Saravia0.[facility] idiopathic neuropathy, unspecified G20 Parkinson's disease Office Visit 10/12/2019 2:30p [facility] Nohelia Jiménez MD G20 Parkinson's disease [facility] G60.9 Hereditary and idiopathic neuropathy, unspecified R20.2 Paresthesia of skin Office Visit 09/12/2019 8:30a [facility] Nohelia Jiménez MD G20 Parkinson's disease [facility] G60.9 Hereditary and idiopathic neuropathy, unspecified R26.89 Other abnormalities of gait and mobility H61.23 Impacted cerumen, bilateral T16.9xxA Foreign body in ear, unspecified ear, initial encounter Office Visit 08/29/2019 2:00p [facility] Nohelia Jiménez, Z00.01 Encounter for [facility] general adult medical exam w abnormal findings G20 Parkinson's disease G60.9 Hereditary and idiopathic neuropathy, unspecified K59.00 Constipation, unspecified Assessments Date Code Description Provider 11/20/2019 G60.9 Hereditary and idiopathic neuropathy, Nohelia Jiménez MD unspecified 11/20/2019 G20 Parkinson's disease Nohelia Jiménez MD 11/14/2019 G60.9 Hereditary and idiopathic neuropathy, Nohelia Jiménez MD unspecified 11/14/2019 G20 Parkinson's disease Nohelia Jiménez MD 10/12/2019 G20 Radha's disease Nohelia Jiménez MD 10/12/2019 G60.9 Hereditary [...] 9:30 am - Nohelia Jiménez MD at [facility] [place] [facility]01/14/2020 1:30 pm - Nohelia Jiménez MD at [facility] [place] [facility]11/20/2019 - Nohelia Jiménez MDG60.9 Hereditary and idiopathic [...] [facility] [address] [place] [address] [phone]
--- OUTSIDE RECORDS SUMMARY | 2019-12-08 15:34 | XMS REPORT ---
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, idiopathic idiopathic PT neuropathy, neuropathy, 938151-3 unspecified unspecified Essential Essential Diagnosis Active Jose (primary) (primary) 09-12 Braden, hypertensio hypertensio PT n n 056371-8 Primary Primary Diagnosis Active Jose osteoarthri osteoarthri 09-12 Braden, tis, tis, PT unspecified unspecified 486687-4 ankle and ankle and foot foot Osteoarthri Osteoarthri Diagnosis Active Jose tis of tis of 09-12 Braden, knee, knee, PT unspecified unspecified 957758-9 Generalized Generalized Diagnosis Active Jose anxiety anxiety 09-12 Braden, disorder disorder PT 147827-2 Pure Pure Diagnosis Active Jose hyperglycer hyperglycer Braden, idemia idemia PT 760769-7 Trigger Trigger Diagnosis Active Jose finger, finger, Braden, unspecified unspecified PT finger finger 398276-6 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, syndrome syndrome PT 543976-0 Unspecified Unspecified Diagnosis Active Jose sensorineur sensorineur Braden, 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 574592-3 Other Other Diagnosis Active Jose amnesia amnesia Braden, PT 790429-5 Constipatio Constipatio Diagnosis Active Jose n, n, Braden, unspecified unspecified PT 037609-2 Anesthesia Anesthesia Diagnosis Active Jose of skin of skin Braden, PT 366872-9 Foreign Foreign Diagnosis Active Jose body in body in Braden, ear, ear, PT unspecified unspecified 317730-4 ear, ear, subsequent subsequent encounter encounter Other long Other long Diagnosis Active Jose term term Braden, (current) (current) PT drug drug 379544-5 therapy therapy Pain frequent Pain Mgmt Active 2020-0 Chantel pain 2-06 (Ira) 09:00: Reddy [id number] Respiratory dyspnea Respirator Active 2020-0 Chantel present y 2-06 (Ira) 09:00: Reddy [id number] Sensory impaired Sensory Active 2020-0 Chantel hearing 2-06 (Ira) 09:00: Reddy [id number] Integument skin Integument Active 2020-0 Chantel integrity 2-06 (Ira) risk 09:00: Reddy [id number] Elimination urinary Eliminatio Active 2020-0 Chantel incontinenc n 2-06 (Ira) e 09:00: Barry [id number] Neuro confusion Neuro/Emot Active 2020-0 Chantel present ion 2-06 (Ira) 09:00: Reddy [id number] Neuro anxiety Neuro/Emot Active 2020-0 Chantel present ion 2-06 (Ira) 09:00: Barry [id number] Neuro impaired Neuro/Emot Active 2020-0 Chantel decision-ma ion 2-06 (Ira) gogo 09:00: Barry [id number] Neuro memory Neuro/Emot Active 2020-0 Chantel deficit ion 2-06 (Ira) needing 09:00: Barry supervision 00 [id number] Activity ADL Activity Active 2020-0 Chantel assistance 2-06 (Ira) required 09:00: Reddy [id number] Activity self-care Activity Active 2020-0 Chantel deficit 2-06 (Ira) 09:00: Barry [id number] Safety fall risk Safety Active 2020-0 Chantel factor 2-06 (Ira) present 09:00: Reddy [id number] Safety risk for Safety Active 2020-0 Chantel hospitaliza 2-06 (Ira) tion 09:00: Reddy [id number] Safety can be left Safety Active 2020-0 Chantel alone for 2-06 (Ira) only short 09:00: Barry periods 00 [id number] Medication oral med Meds Active 2020-0 Chantel assistance 2-06 (Ira) required 09:00: Reddy [id number] Medication potential Meds Active 2020-0 Chantel clinically 2-06 (Ira) significant 09:00: Barry medication 00 [id number] issue Musculoskel transfer Musculoske Active 2020-0 Chantel etal assistance letal 2 (Ira) required 09:00: Reddy [id number] Musculoskel knowledge/s Musculoske Active 2020-0 Chantel etal kill letal 2 (Ira) deficit: pt 09:00: Reddy [id number] Musculoskel requires Musculoske Active 2020-0 Chantel etal human letal 2 (Ira) assist to 09:00: Reddy leave home [id number] Bed transfer PT/OT: Bed Active 2020-0 Jose Mobility/Tr deficit: Mobility/T 2-06 hector Feliciano sit/stand ransfer 11:30: PT 00 [id number] Bed transfer PT/OT: Bed Active 2020-0 Jose Mobility/Tr deficit: Mobility/T 2-06 hector Feliciano standing ransfer 11:30: PT pivot 00 [id number] Bed transfer PT/OT: Bed Active 2020-0 Jose Mobility/Tr deficit: Mobility/T 2-06 hector Feliciano toilet/comm ransfer 11:30: PT ode 00 709971-0 Bed transfer PT/OT: Bed Active 2020-0 Jose Mobility/Tr deficit: Mobility/T 2-06 hector Feliciano shower/tub ransfer 11:30: PT 00 645372-2 Bed knowledge/s PT/OT: Bed Active 2020-0 Jose Mobility/Tr kill Mobility/T 2-06 hector Feliciano deficit: pt ransfer 11:30: PT 00 770365-3 Bed bed PT/OT: Bed Active 2020-0 Jose Mobility/Tr mobility Mobility/T 2-06 hector Feliciano deficit ransfer 11:30: PT 00 [id number] Gait/Locomo gait PT/OT: Active 2020-0 Jose tion assistive Gait/Locom 2-06 Braden, problems device otion 11:30: PT present 00 760286-0 Gait/Locomo knowledge/s PT/OT: Active 2020-0 Jose tion kill Gait/Locom 2-06 Braden, problems deficit: pt otion 11:30: PT 00 012101-1 Gait/Locomo knowledge/s PT/OT: Active 2020-0 Jose tion kill Gait/Locom 2-06 Braden, problems deficit: cg otion 11:30: PT 00 557920-5 Gait/Locomo gait PT/OT: Active Jose tion deficit Gait/Locom 09-20 Braden, problems otion 11:30: PT 00 708778-6 Allergies, Adverse Reactions, Alerts Allergy Allergy Status Severity Reaction(s) Onset Inactive Treating Comments Name Type Date Date Clinician Unknown None Active Unknown None Unknown No Known Allergies For This Patient Medications Ordered Filled Start Stop Current Ordering Indication Dosage Frequency Signature Comments Components Medication Medication Date Date Medication? Clinician (SIG) Name Name pregabalin pregabalin 2020- Yes LaFace Unknown Unknown 75 mg 75 mg 09-20 ,Nohelia capsule capsule Fish Oil Fish Oil 2019- Yes LaFace Unknown Unknown 100 mg-160 100 mg-160 09-20 ,Nohelia mg-1,000 mg mg-1,000 mg capsule capsule Multi Multi 2019- Yes LaFace Unknown Unknown Complete Complete 09-20 Nohelia TAPIA with Iron with Iron 18 mg-400 18 mg-400 mcg tablet mcg tablet amitriptyli amitriptyli 2019- Yes LaFace Unknown Unknown ne 10 mg ne 10 mg 09-20 Nohelia TAPIA tablet tablet carbidopa carbidopa 2019- Yes LaFace Unknown Unknown 25 25 09-20 Nohelia TAPIA mg-levodopa mg-levodopa 100 mg 100 mg tablet tablet amLODIPine amLODIPine 2019- Yes LaFace Unknown Unknown 5 mg tablet 5 mg tablet 09-20 ,Nohelia atenoloL 25 atenoloL 25 2019- Yes LaFace Unknown Unknown mg tablet mg tablet 09-20 Nohelia TAPIA Vitamin C Vitamin C 2019- Yes LaFace Unknown Unknown 1,000 mg 1,000 mg 09-20 Nohelia TAPIA tablet tablet magnesium magnesium 2019- Yes LaFace Unknown Unknown 400 mg (as 400 mg (as 09-20 Nohelia TAPIA magnesium magnesium oxide) oxide) tablet tablet Vitamin B-6 Vitamin B-6 2019- Yes LaFace Unknown Unknown 50 mg 50 mg 09-20 ,Nohelia tablet tablet Calcium 600 Calcium 600 2019- Yes LaFace Unknown Unknown + D(3) 600 + D(3) 600 09-20 ,Nohelia mg (1,500 mg (1,500 mg)-200 mg)-200 unit tablet unit tablet Lipoic Acid Lipoic Acid 2019- LaFace Unknown Unknown 100 mg 100 mg 09-20 ,Nohelia capsule capsule pregabalin pregabalin 2019- Yes LaFace Unknown Unknown 75 mg 75 mg 10-18 ,Nohelia capsule capsule Vital Signs Vital Name Observation Time Observation Value Comments SYSTOLIC mm[Hg] 2019-11-15 18:11:11 120 mm[Hg] mm[Hg] Method: Sit SYSTOLIC mm[Hg] 2019-09-21 18:10:16 114 mm[Hg] mm[Hg] Method: Stand DIASTOLIC mm[Hg] 2019-11-15 18:11:11 80 mm[Hg] mm[Hg] Method: Sit DIASTOLIC mm[Hg] 2019-09-21 18:10:16 76 mm[Hg] mm[Hg] Method: Stand PULSE 2019-11-15 18:11:11 64 /min /min RESP RATE 2019-11-15 18:11:11 18 /min /min TEMP 2019-11-15 18:11:11 97.4 [degF] Procedures This patient has no known procedures. Results This patient has no known results.
--- OUTSIDE RECORDS SUMMARY | 2019-12-08 15:35 | XMS REPORT ---
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, idiopathic idiopathic PT neuropathy, neuropathy, 396803-6 unspecified unspecified Essential Essential Diagnosis Active Jose (primary) (primary) 09-12 Braden, hypertensio hypertensio PT n n 280191-4 Primary Primary Diagnosis Active Jose osteoarthri osteoarthri 09-12 Braden, tis, tis, PT unspecified unspecified 326177-2 ankle and ankle and foot foot Osteoarthri Osteoarthri Diagnosis Active Jose tis of tis of 09-12 Braden, knee, knee, PT unspecified unspecified [id number] Generalized Generalized Diagnosis Active Jose anxiety anxiety 09-12 Braden, disorder disorder PT 748483-8 Pure Pure Diagnosis Active Jose hyperglycer hyperglycer Braden, idemia idemia PT 937578-6 Trigger Trigger Diagnosis Active Jose finger, finger, Braden, unspecified unspecified PT finger finger 524388-0 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, syndrome syndrome PT 842140-3 Unspecified Unspecified Diagnosis Active Jose sensorineur sensorineur Braden, 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 706119-1 Other Other Diagnosis Active Jose amnesia amnesia Braden, PT 146075-5 Constipatio Constipatio Diagnosis Active Jose n, n, Braden, unspecified unspecified PT 427635-1 Anesthesia Anesthesia Diagnosis Active Jose of skin of skin Braden, PT 099096-9 Foreign Foreign Diagnosis Active Jose body in body in Braden, ear, ear, PT unspecified unspecified 233818-5 ear, ear, subsequent subsequent encounter encounter Other long Other long Diagnosis Active Jose term term Braden, (current) (current) PT drug drug 153714-3 therapy therapy Pain frequent Pain Mgmt Active 2020-0 Chantel pain 2-06 (Ira) 09:00: Reddy [id number] Respiratory dyspnea Respirator Active 2020-0 Chantel present y 2-06 (Ira) 09:00: Reddy [id number] Sensory impaired Sensory Active 2020-0 Chantel hearing 2-06 (Ira) 09:00: Reddy [id number] Integument skin Integument Active 2020-0 Chantel integrity 2-06 (Ira) risk 09:00: Reddy [id number] Elimination urinary Eliminatio Active 2020-0 Chantel incontinenc n 2-06 (Ira) e 09:00: Barry [id number] Neuro confusion Neuro/Emot Active 2020-0 Chantel present ion 2-06 (Ira) 09:00: Reddy [id number] Neuro anxiety Neuro/Emot Active 2020-0 Chantel present ion 2-06 (Ira) 09:00: Barry [id number] Neuro impaired Neuro/Emot Active 2020-0 Chantel decision-ma ion 2-06 (Ira) gogo 09:00: Barry [id number] Neuro memory Neuro/Emot Active 2020-0 Chantel deficit ion 2-06 (Ira) needing 09:00: Barry supervision 00 [id number] Activity ADL Activity Active 2020-0 Chantel assistance 2-06 (Ira) required 09:00: Reddy [id number] Activity self-care Activity Active 2020-0 Chantel deficit 2-06 (Ira) 09:00: Barry [id number] Safety fall risk Safety Active 2020-0 Chantel factor 2-06 (Ira) present 09:00: Reddy [id number] Safety risk for Safety Active 2020-0 Chantel hospitaliza 2-06 (Ira) tion 09:00: Reddy [id number] Safety can be left Safety Active 2020-0 Chantel alone for 2-06 (Ira) only short 09:00: Barry periods 00 [id number] Medication oral med Meds Active 2020-0 Chantel assistance 2-06 (Ira) required 09:00: Reddy [id number] Medication potential Meds Active 2020-0 Chantel clinically 2-06 (Ira) significant 09:00: Barry medication 00 [id number] issue Musculoskel transfer Musculoske Active 2020-0 Chantel etal assistance letal 2 (Ira) required 09:00: Reddy [id number] Musculoskel knowledge/s Musculoske Active 2020-0 Chantel etal kill letal 2 (Ira) deficit: pt 09:00: Reddy [id number] Musculoskel requires Musculoske Active 2020-0 Chantel etal human letal 2 (Ira) assist to 09:00: Reddy leave home [id number] Bed transfer PT/OT: Bed Active 2020-0 Jose Mobility/Tr deficit: Mobility/T 2-06 hector Feliciano sit/stand ransfer 11:30: PT 00 386706-3 Bed transfer PT/OT: Bed Active 2020-0 Jose Mobility/Tr deficit: Mobility/T 2-06 hector Feliciano standing ransfer 11:30: PT pivot 00 327762-8 Bed transfer PT/OT: Bed Active 2020-0 Jose Mobility/Tr deficit: Mobility/T 2-06 hector Feliciano toilet/comm ransfer 11:30: PT ode 00 211000-6 Bed transfer PT/OT: Bed Active 2020-0 Jose Mobility/Tr deficit: Mobility/T 2-06 hector Feliciano shower/tub ransfer 11:30: PT 00 552341-8 Bed knowledge/s PT/OT: Bed Active 2020-0 Jose Mobility/Tr kill Mobility/T 2-06 hector Feliciano deficit: pt ransfer 11:30: PT 00 297149-4 Bed bed PT/OT: Bed Active 2020-0 Jose Mobility/Tr mobility Mobility/T 2-06 hector Feliciano deficit ransfer 11:30: PT 00 163035-5 Gait/Locomo gait PT/OT: Active 2020-0 Jose tion assistive Gait/Locom 2-06 Braden, problems device otion 11:30: PT present 00 [id number] Gait/Locomo knowledge/s PT/OT: Active 2020-0 Jose tion kill Gait/Locom 2-06 Braden, problems deficit: pt otion 11:30: PT 00 943403-2 Gait/Locomo knowledge/s PT/OT: Active 2020-0 Jose tion kill Gait/Locom 2-06 Braden, problems deficit: cg otion 11:30: PT 00 353446-7 Gait/Locomo gait PT/OT: Active Jose tion deficit Gait/Locom 09-20 Braden, problems otion 11:30: PT [id number] Allergies, Adverse Reactions, Alerts Allergy Allergy Status Severity Reaction(s) Onset Inactive Treating Comments Name Type Date Date Clinician Unknown None Active Unknown None Unknown No Known Allergies For This Patient Medications Ordered Filled Start Stop Current Ordering Indication Dosage Frequency Signature Comments Components Medication Medication Date Date Medication? Clinician (SIG) Name Name pregabalin pregabalin Yes LaFace Unknown Unknown 75 mg 75 mg 2 ,Nohelia capsule capsule Fish Oil Fish Oil Yes LaFace Unknown Unknown 100 mg-160 100 mg-160 2 ,Nohelia mg-1,000 mg mg-1,000 mg capsule capsule Multi Multi Yes LaFace Unknown Unknown Complete Complete 09-20 Nohelia TAPIA with Iron with Iron 18 mg-400 18 mg-400 mcg tablet mcg tablet amitriptyli amitriptyli Yes LaFace Unknown Unknown ne 10 mg ne 10 mg 2 Nohelia TAPIA tablet tablet carbidopa carbidopa Yes LaFace Unknown Unknown 25 25 2 Nohelia TAPIA-levodopa mg-levodopa 100 mg 100 mg tablet tablet amLODIPine amLODIPine Yes LaFace Unknown Unknown 5 mg tablet 5 mg tablet 09-20 Nohelia TAPIA atenolol 25 atenolol 25 2019- Yes LaFace Unknown Unknown mg tablet mg tablet 09-20 Nohelia TAPIA Vitamin C Vitamin C Yes LaFace Unknown Unknown 1,000 mg 1,000 mg 09-20 Nohelia TAPIA tablet tablet magnesium magnesium Yes LaFace Unknown Unknown 400 mg (as 400 mg (as 09-20 Nohelia TAPIA magnesium magnesium oxide) oxide) tablet tablet Vitamin B-6 Vitamin B-6 Yes LaFace Unknown Unknown 50 mg 50 mg 2 Nohelia TAPIA tablet tablet Calcium 600 Calcium 600 Yes LaFace Unknown Unknown + D(3) 600 + D(3) 600 2 Nohelia TAPIA mg (1,500 mg (1,500 mg)-200 mg)-200 unit tablet unit tablet Lipoic Acid Lipoic Acid 2020-0 Yes LaFace Unknown Unknown 100 mg 100 mg 2-06 Nohelia TAPIA capsule capsule Vital Signs Vital Name Observation Time Observation Value Comments SYSTOLIC mm[Hg] 2019-10-24 18:10:49 102 mm[Hg] mm[Hg] Method: Sit SYSTOLIC mm[Hg] 2019-09-21 18:10:16 114 mm[Hg] mm[Hg] Method: Stand DIASTOLIC mm[Hg] 2019-10-24 18:10:49 72 mm[Hg] mm[Hg] Method: Sit DIASTOLIC mm[Hg] 2019-09-21 18:10:16 76 mm[Hg] mm[Hg] Method: Stand PULSE 2019-10-24 18:10:49 64 /min /min RESP RATE 2019-10-24 18:10:49 16 /min /min TEMP 2019-10-24 18:10:49 97.6 [degF] Procedures This patient has no known procedures. Results This patient has no known results.
--- OUTSIDE RECORDS SUMMARY | 2019-12-08 15:35 | XMS REPORT ---
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, idiopathic idiopathic PT neuropathy, neuropathy, [id number] unspecified unspecified Essential Essential Diagnosis Active Jose (primary) (primary) 09-12 Braden, hypertensio hypertensio PT n n 335150-9 Primary Primary Diagnosis Active Jose osteoarthri osteoarthri 09-12 Braden, tis, tis, PT unspecified unspecified 230966-7 ankle and ankle and foot foot Osteoarthri Osteoarthri Diagnosis Active Jose tis of tis of 09-12 Braden, knee, knee, PT unspecified unspecified 716250-1 Generalized Generalized Diagnosis Active Jose anxiety anxiety 09-12 Braden, disorder disorder PT 722885-0 Pure Pure Diagnosis Active Jose hyperglycer hyperglycer Braden, idemia idemia PT 770226-2 Trigger Trigger Diagnosis Active Jose finger, finger, Braden, unspecified unspecified PT finger finger 882671-7 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, syndrome syndrome PT 066078-2 Unspecified Unspecified Diagnosis Active Jose sensorineur sensorineur Braden, 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 520652-6 Other Other Diagnosis Active Jose amnesia amnesia Braden, PT 449451-6 Constipatio Constipatio Diagnosis Active Jose n, n, Braden, unspecified unspecified PT 417945-1 Anesthesia Anesthesia Diagnosis Active Jose of skin of skin Braden, PT 989686-6 Foreign Foreign Diagnosis Active Jose body in body in Braden, ear, ear, PT unspecified unspecified 828296-6 ear, ear, subsequent subsequent encounter encounter Other long Other long Diagnosis Active Jose term term Braden, (current) (current) PT drug drug 923797-9 therapy therapy Pain frequent Pain Mgmt Active 2020-0 Chantel pain 2-06 (Ira) 09:00: Reddy [id number] Respiratory dyspnea Respirator Active 2020-0 Chantel present y 2-06 (Ira) 09:00: Reddy [id number] Sensory impaired Sensory Active 2020-0 Chantel hearing 2-06 (Ira) 09:00: Reddy [id number] Integument skin Integument Active 2020-0 Chantel integrity 2-06 (Ira) risk 09:00: Reddy [id number] Elimination urinary Eliminatio Active 2020-0 Chantel incontinenc n 2-06 (Ira) e 09:00: Barry [id number] Neuro confusion Neuro/Emot Active 2020-0 Chatnel present ion 2-06 (Ira) 09:00: Reddy [id number] Neuro anxiety Neuro/Emot Active 2020-0 Chantel present ion 2-06 (Ira) 09:00: Barry [id number] Neuro impaired Neuro/Emot Active 2020-0 Chantel decision-ma ion 2-06 (Ira) gogo 09:00: Barry [id number] Neuro memory Neuro/Emot Active 2020-0 Chantel deficit ion 2-06 (Ira) needing 09:00: Barry supervision 00 [id number] Activity ADL Activity Active 2020-0 Chantel assistance 2-06 (Ira) required 09:00: Erddy [id number] Activity self-care Activity Active 2020-0 Chantel deficit 2-06 (Ira) 09:00: Barry [id number] Safety fall risk Safety Active 2020-0 Cahntel factor 2-06 (Ira) present 09:00: Reddy [id number] Safety risk for Safety Active 2020-0 Chantel hospitaliza 2-06 (Ira) tion 09:00: Reddy [id number] Safety can be left Safety Active 2020-0 Chantel alone for 2-06 (Ira) only short 09:00: Barry periods 00 [id number] Medication oral med Meds Active 2020-0 Chantel assistance 2-06 (Ira) required 09:00: Reddy [id number] Medication potential Meds Active 2020-0 Chantel clinically 2-06 (Ira) significant 09:00: Barry medication 00 [id number] issue Musculoskel transfer Musculoske Active 2020-0 Chantel etal assistance letal 2 (Ira) required 09:00: Reddy [id number] Musculoskel knowledge/s Musculoske Active 2020-0 Chantel etal kill letal 2 (Ira) deficit: pt 09:00: Reddy [id number] Musculoskel requires Musculoske Active 2020-0 Chantel etal human letal 2 (Ira) assist to 09:00: Reddy leave home [id number] Bed transfer PT/OT: Bed Active 2020-0 Jose Mobility/Tr deficit: Mobility/T 2-06 hector Feliciano sit/stand ransfer 11:30: PT 00 [id number] Bed transfer PT/OT: Bed Active 2020-0 Jose Mobility/Tr deficit: Mobility/T 2-06 hector Feliciano standing ransfer 11:30: PT pivot 00 960491-9 Bed transfer PT/OT: Bed Active 2020-0 Jose Mobility/Tr deficit: Mobility/T 2-06 hector Feliciano toilet/comm ransfer 11:30: PT ode 00 859287-8 Bed transfer PT/OT: Bed Active 2020-0 Jose Mobility/Tr deficit: Mobility/T 2-06 hector Feliciano shower/tub ransfer 11:30: PT 00 152242-0 Bed knowledge/s PT/OT: Bed Active 2020-0 Jose Mobility/Tr kill Mobility/T 2-06 hector Feliciano deficit: pt ransfer 11:30: PT 00 164087-2 Bed bed PT/OT: Bed Active 2020-0 Jose Mobility/Tr mobility Mobility/T 2-06 hector Feliciano deficit ransfer 11:30: PT 00 [id number] Gait/Locomo gait PT/OT: Active 2020-0 Jose tion assistive Gait/Locom 2-06 Braden, problems device otion 11:30: PT present 00 [id number] Gait/Locomo knowledge/s PT/OT: Active 2020-0 Jose tion kill Gait/Locom 2-06 Braden, problems deficit: pt otion 11:30: PT 00 [id number] Gait/Locomo knowledge/s PT/OT: Active 2020-0 Jose tion kill Gait/Locom 2-06 Braden, problems deficit: cg otion 11:30: PT 00 [id number] Gait/Locomo gait PT/OT: Active Jose tion deficit [...] Observation Time Observation Value Comments SYSTOLIC mm[Hg] 2019-10-31 18:10:56 108 mm[Hg] mm[Hg] Method: Sit SYSTOLIC mm[Hg] 2019-09-21 18:10:16 114 mm[Hg] mm[Hg] Method: Stand DIASTOLIC mm[Hg] 2019-10-31 18:10:56 66 mm[Hg] mm[Hg] Method: Sit DIASTOLIC mm[Hg] 2019-09-21 18:10:16 76 mm[Hg] mm[Hg] Method: Stand PULSE 2019-10-31 18:10:56 62 /min /min RESP RATE 2019-10-31 18:10:56 16 /min /min TEMP 2019-10-31 18:10:56 97.4 [degF] Procedures This patient has no known procedures. Results This patient has no known results.
--- OUTSIDE RECORDS SUMMARY | 2019-12-08 15:35 | XMS REPORT | Continuity of Care Document ---
:1940 External Reference #:[id number] Author Name Nohelia Jiménez MD (transmitted by agent of provider November) Address [address], [place] [address] Care Team Providers Name Role Phone Nohelia Jiménez MD - Family Medicine Care Team Information Dock Pumper [phone] Problems Active Problems Provider Date Parkinson's disease [...] uses seat belt Allergies, Adverse Reactions, Alerts Description No Known Drug Allergies Medications Active Medications SIG Qnty Indications Ordering Date Provider Lyrica 1 po at lunch and 30caps Nohelia Jiménez MD 09/19/2019 100mg Capsules bedtime, take 75 mg in the morning, for two weeks then increase to 100 mg tid Walker Auto Glides/5 1 Nohelia Jiménez MD 09/13/2019 Adjustment Holes/-08/22" 1-08/22" [facility] Journey Series Rolling use walker prn 1units R26.89 Nohelia Jiménez MD 09/12 Walker/4205BL-R/Blue [facility] Multivitamin Adults 1 po qd Mvi One Nohelia Jiméenz MD 08/29/2019 Tablets Amitriptyline HCL 1 po qd Nohelia Jiménez MD 08/29/2019 10mg Tablets Valium 1 by mouth 2 2tabs Tete Alba, 01/29/2016 5mg Tablets hours prior to M.D. mri, may repeat at MRI if still anxious and not sedated. You must have someone else drive. Sinemet take 1.5 pills by Unknown 25-100mg Tablets mouth 3 times daily Lyrica change to 1 75 in Unknown 75mg Capsules Am and 100 bid lunch and at hs Curcumin 1 tab po daily Unknown Tab [...] Suspension twice a day for 7 days Medications Administered in Office Medication SIG Qnty Indications Ordering Provider Date Depomedrol 40MG WISAM Ma 11/06/2015 Injection Depomedrol 40MG Obie Corrales M.D. 09/26/2015 Injection Celestone 3 mg and 3mg Lori Stanton, 01/09/2014 Injection Vijay Immunizations CPT Code Status Date Vaccine Lot # [id number] Given 06/20/2019 Influenza Virus Vaccine, Quadrivalent, Split, Im Use 6-35mo 26473 Given 07/31/2018 Tdap - Tetanus/Diptheria/Acellular Pertussis 29568 Given 05/26/2018 Fluzone High Dose 96309 Given 07/18/2017 Influenza Virus Vaccine, Quadrivalent, Split, Im Use 6-35mo 11516 Given 06/25/2016 Influenza Virus Vaccine, Quadrivalent, Split, Im Use 6-35mo 76601 Given 06/26/2015 Pneumococcal Conjugate Vaccine 13 Valent For Intramuscular Use 74201 Given 06/26/2015 Fluzone High Dose 42668 Given 04/24/2014 Zoster (Zostavax) 14128 Given 04/24/2014 Pneumonia Vaccine 02941 Given 04/24/2014 Influenza Virus Vaccine, Split, Preserv Free, Intradermal Use 53304 Given 06/15/2013 Influenza Virus Vaccine, Split, Preserv [...] Available Procedures Date Code Description Status 09/12/2019 57840 Removal F/B Ext Ear W/O Anesthesia Completed 04/09/2014 093558030 Bone Mineral Density Test Completed 04/09/2014 [id number] Mammogram Completed 02/18/2014 [id number] Colonoscopy Completed Medical Devices Description No Information Available Encounters Type Date Location Provider Dx Diagnosis Office Visit 10/12/2019 [facility] Nohelia Jiménez MD G20 Parkinson's disease 2:30p [facility] G60.9 Hereditary and idiopathic neuropathy, unspecified R20.2 Paresthesia of skin Office Visit 09/12/2019 8:30a [facility] Nohelia Jiménez MD G20 Parkinson's disease [facility] G60.9 Hereditary and idiopathic neuropathy, unspecified R26.89 Other abnormalities of gait and mobility H61.23 Impacted cerumen, bilateral T16.9xxA Foreign body in ear, unspecified ear, initial encounter Office Visit 08/29/2019 2:00p [facility] Nohelia Jiménez, Z00.01 Encounter for [facility] general adult medical exam w abnormal findings G20 Parkinson's disease G60.9 Hereditary and idiopathic neuropathy, unspecified K59.00 Constipation, unspecified Assessments Date Code Description Provider 10/12/2019 G20 Parkinson's disease Nohelia Jiménez MD [...] Nohelia Jiménez MD Plan of Treatment Future Appointment(s):01/14/2020 1:30 pm - Nohelia Jim[facility]nez MD at [facility]10/12/2019 - Nohelia Jiménez MDG20 Parkinson's diseaseComments:pt has worsening postural instability and balance due to pain, numbness, proprioception issues of LE, weakness, incoordination. She has difficulty standing up and has gait freezing, taking smaller steps. She has started PT, had increase in Sinemet with no noticeable change, using walker. I recommend no driving, continue PT, get good walker, f/u 3 months with me, sooner prnFollow up :3 ztiospS49.9 Hereditary and idiopathic neuropathy, unspecifiedComments:pt has worsening balance due to pain, numbness, proprioception issues of LE, on exam; her gross strength is good.We slightly increased her Lyrica last visit with no clear change, will increase to 75/100/100 for two weeks then 100 TID, has f/u neuro [facility] in 3 ssahtI75.2 Paresthesia of handComments:pinky and ring finger had in past, similar to CTS symptoms, hx/o surgery in past, trial night splint Functional Status Description No Information Available Mental Status Description No Information Available Referrals Refer to Reason for Referral Status Appt Date [facility] [address] [place] [address] [phone]
--- OUTSIDE RECORDS SUMMARY | 2019-12-08 15:35 | XMS REPORT ---
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, idiopathic idiopathic PT neuropathy, neuropathy, 095570-5 unspecified unspecified Essential Essential Diagnosis Active Jose (primary) (primary) 09-12 Braden, hypertensio hypertensio PT n n 209680-7 Primary Primary Diagnosis Active Jose osteoarthri osteoarthri 09-12 Braden, tis, tis, PT unspecified unspecified 021216-3 ankle and ankle and foot foot Osteoarthri Osteoarthri Diagnosis Active Jose tis of tis of 09-12 Braden, knee, knee, PT unspecified unspecified 760032-3 Generalized Generalized Diagnosis Active Jose anxiety anxiety 09-12 Braden, disorder disorder PT 791027-1 Pure Pure Diagnosis Active Jose hyperglycer hyperglycer Braden, idemia idemia PT 736272-9 Trigger Trigger Diagnosis Active Jose finger, finger, Braden, unspecified unspecified PT finger finger 205265-5 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, syndrome syndrome PT 870958-8 Unspecified Unspecified Diagnosis Active Jose sensorineur sensorineur Braden, 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 025857-3 Other Other Diagnosis Active Jose amnesia amnesia Braden, PT 410222-7 Constipatio Constipatio Diagnosis Active Jose n, n, Braden, unspecified unspecified PT 827783-2 Anesthesia Anesthesia Diagnosis Active Jose of skin of skin Braden, PT 590089-7 Foreign Foreign Diagnosis Active Jose body in body in Braden, ear, ear, PT unspecified unspecified 563559-8 ear, ear, subsequent subsequent encounter encounter Other long Other long Diagnosis Active Jose term term Braden, (current) (current) PT drug drug 100931-9 therapy therapy Pain frequent Pain Mgmt Active 2020-0 Chantel pain 2-06 (Ira) 09:00: Reddy [id number] Respiratory dyspnea Respirator Active 2020-0 Chantel present y 2-06 (Ira) 09:00: Reddy [id number] Sensory impaired Sensory Active 2020-0 Chantel hearing 2-06 (Ira) 09:00: Reddy [id number] Integument skin Integument Active 2020-0 Chantel integrity 2-06 (Ira) risk 09:00: Reddy [id number] Elimination urinary Eliminatio Active 2020-0 Chantel incontinenc n 2-06 (Ira) e 09:00: Barry [id number] Neuro confusion Neuro/Emot Active 2020-0 Chantel present ion 2-06 (Ira) 09:00: Reddy [id number] Neuro anxiety Neuro/Emot Active 2020-0 Chantel present ion 2-06 (Ira) 09:00: Barry [id number] Neuro impaired Neuro/Emot Active 2020-0 Chantel decision-ma ion 2-06 (Ira) gogo 09:00: Barry [id number] Neuro memory Neuro/Emot Active 2020-0 Chantel deficit ion 2-06 (Ira) needing 09:00: Barry supervision 00 [id number] Activity ADL Activity Active 2020-0 Chantel assistance 2-06 (Ira) required 09:00: Reddy [id number] Activity self-care Activity Active 2020-0 Chantel deficit 2-06 (Ira) 09:00: Barry [id number] Safety fall risk Safety Active 2020-0 Chantel factor 2-06 (Ira) present 09:00: Reddy [id number] Safety risk for Safety Active 2020-0 Chantel hospitaliza 2-06 (Ira) tion 09:00: Reddy [id number] Safety can be left Safety Active 2020-0 Chantel alone for 2-06 (Ira) only short 09:00: Barry periods 00 [id number] Medication oral med Meds Active 2020-0 Chantel assistance 2-06 (Ira) required 09:00: Reddy [id number] Medication potential Meds Active 2020-0 Chantel clinically 2-06 (Ira) significant 09:00: Barry medication 00 [id number] issue Musculoskel transfer Musculoske Active 2020-0 Chantel etal assistance letal 2 (Ira) required 09:00: Reddy [id number] Musculoskel knowledge/s Musculoske Active 2020-0 Chantel etal kill letal 2 (Ira) deficit: pt 09:00: Reddy [id number] Musculoskel requires Musculoske Active 2020-0 Chantel etal human letal 2 (Ira) assist to 09:00: Reddy leave home [id number] Bed transfer PT/OT: Bed Active 2020-0 Jose Mobility/Tr deficit: Mobility/T 2-06 hector Feliciano sit/stand ransfer 11:30: PT 00 049420-1 Bed transfer PT/OT: Bed Active 2020-0 Jose Mobility/Tr deficit: Mobility/T 2-06 hector Feliciano standing ransfer 11:30: PT pivot 00 [id number] Bed transfer PT/OT: Bed Active 2020-0 Jose Mobility/Tr deficit: Mobility/T 2-06 hector Feliciano toilet/comm ransfer 11:30: PT ode 00 643886-2 Bed transfer PT/OT: Bed Active 2020-0 Jose Mobility/Tr deficit: Mobility/T 2-06 hector Feliciano shower/tub ransfer 11:30: PT 00 499517-4 Bed knowledge/s PT/OT: Bed Active 2020-0 Jose Mobility/Tr kill Mobility/T 2-06 hector Feliciano deficit: pt ransfer 11:30: PT 00 415390-1 Bed bed PT/OT: Bed Active 2020-0 Jose Mobility/Tr mobility Mobility/T 2-06 hector Feliciano deficit ransfer 11:30: PT 00 670041-1 Gait/Locomo gait PT/OT: Active 2020-0 Jose tion assistive Gait/Locom 2-06 Barden, problems device otion 11:30: PT present 00 185009-1 Gait/Locomo knowledge/s PT/OT: Active 2020-0 Ojse tion kill Gait/Locom 2-06 Braden, problems deficit: pt otion 11:30: PT 00 919799-7 Gait/Locomo knowledge/s PT/OT: Active 2020-0 Jose tion kill Gait/Locom 2-06 Braden, problems deficit: cg otion 11:30: PT 00 740293-7 Gait/Locomo gait PT/OT: Active Jose tion deficit [...] LaFace Unknown Unknown 100 mg 100 mg 2- Nohelia TAPIA capsule capsule Vital Signs Vital Name Observation Time Observation Value Comments SYSTOLIC mm[Hg] 2019-10-22 18:10:47 120 mm[Hg] mm[Hg] Method: Sit SYSTOLIC mm[Hg] 2019-09-21 18:10:16 114 mm[Hg] mm[Hg] Method: Stand DIASTOLIC mm[Hg] 2019-10-22 18:10:47 80 mm[Hg] mm[Hg] Method: Sit DIASTOLIC mm[Hg] 2019-09-21 18:10:16 76 mm[Hg] mm[Hg] Method: Stand PULSE 2019-10-22 18:10:47 64 /min /min RESP RATE 2019-10-22 18:10:47 28 /min /min TEMP 2019-10-22 18:10:47 97.2 [degF] Procedures This patient has no known procedures. Results This patient has no known results.
--- OUTSIDE RECORDS SUMMARY | 2019-12-08 15:35 | XMS REPORT ---
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, idiopathic idiopathic PT neuropathy, neuropathy, 797657-0 unspecified unspecified Essential Essential Diagnosis Active Jose (primary) (primary) 09-12 Braden, hypertensio hypertensio PT n n 929142-2 Primary Primary Diagnosis Active Jose osteoarthri osteoarthri 09-12 Braden, tis, tis, PT unspecified unspecified 978904-3 ankle and ankle and foot foot Osteoarthri Osteoarthri Diagnosis Active Jose tis of tis of 09-12 Braden, knee, knee, PT unspecified unspecified 996261-1 Generalized Generalized Diagnosis Active Jose anxiety anxiety 09-12 Braden, disorder disorder PT 722634-6 Pure Pure Diagnosis Active Jose hyperglycer hyperglycer Braden, idemia idemia PT 904500-7 Trigger Trigger Diagnosis Active Jose finger, finger, Braden, unspecified unspecified PT finger finger 359176-0 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, syndrome syndrome PT 699970-2 Unspecified Unspecified Diagnosis Active Jose sensorineur sensorineur Braden, 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 001345-4 Other Other Diagnosis Active Jose amnesia amnesia Braden, PT 787676-6 Constipatio Constipatio Diagnosis Active Jose n, n, Braden, unspecified unspecified PT 804369-1 Anesthesia Anesthesia Diagnosis Active Jose of skin of skin Braden, PT 197507-0 Foreign Foreign Diagnosis Active Jose body in body in Braden, ear, ear, PT unspecified unspecified 673339-9 ear, ear, subsequent subsequent encounter encounter Other long Other long Diagnosis Active Jose term term Braden, (current) (current) PT drug drug 074982-0 therapy therapy Pain frequent Pain Mgmt Active 2020-0 Chantel pain 2-06 (Ira) 09:00: Reddy [id number] Respiratory dyspnea Respirator Active 2020-0 Chantel present y 2-06 (Ira) 09:00: Reddy [id number] Sensory impaired Sensory Active 2020-0 Chantel hearing 2-06 (Ira) 09:00: Reddy [id number] Integument skin Integument Active 2020-0 Chantel integrity 2-06 (Ira) risk 09:00: Reddy [id number] Elimination urinary Eliminatio Active 2020-0 Chantel incontinenc n 2-06 (Ira) e 09:00: Barry [id number] Neuro confusion Neuro/Emot Active 2020-0 Chantel present ion 2-06 (Ira) 09:00: Reddy [id number] Neuro anxiety Neuro/Emot Active 2020-0 Chantel present ion 2-06 (Ira) 09:00: Barry [id number] Neuro impaired Neuro/Emot Active 2020-0 Chantel decision-ma ion 2-06 (Ira) gogo 09:00: Barry [id number] Neuro memory Neuro/Emot Active 2020-0 Chantel deficit ion 2-06 (Ira) needing 09:00: Barry supervision 00 [id number] Activity ADL Activity Active 2020-0 Chantel assistance 2-06 (Ira) required 09:00: Reddy [id number] Activity self-care Activity Active 2020-0 Chantel deficit 2-06 (Ira) 09:00: Barry [id number] Safety fall risk Safety Active 2020-0 Chantel factor 2-06 (Ira) present 09:00: Reddy [id number] Safety risk for Safety Active 2020-0 Chantel hospitaliza 2-06 (Ira) tion 09:00: Reddy [id number] Safety can be left Safety Active 2020-0 Chantel alone for 2-06 (Ira) only short 09:00: Barry periods 00 [id number] Medication oral med Meds Active 2020-0 Chantel assistance 2-06 (Ira) required 09:00: Reddy [id number] Medication potential Meds Active 2020-0 Chantel clinically 2-06 (Ira) significant 09:00: Barry medication 00 [id number] issue Musculoskel transfer Musculoske Active 2020-0 Chantel etal assistance letal 2 (Ira) required 09:00: Reddy [id number] Musculoskel knowledge/s Musculoske Active 2020-0 Chantel etal kill letal 2 (Ira) deficit: pt 09:00: Reddy [id number] Musculoskel requires Musculoske Active 2020-0 Chantel etal human letal 2 (Ira) assist to 09:00: Reddy leave home [id number] Bed transfer PT/OT: Bed Active 2020-0 Jose Mobility/Tr deficit: Mobility/T 2-06 hector Feliciano sit/stand ransfer 11:30: PT 00 311241-6 Bed transfer PT/OT: Bed Active 2020-0 Jose Mobility/Tr deficit: Mobility/T 2-06 hector Feliciano standing ransfer 11:30: PT pivot 00 909057-5 Bed transfer PT/OT: Bed Active 2020-0 Jose Mobility/Tr deficit: Mobility/T 2-06 hector Feliciano toilet/comm ransfer 11:30: PT ode 00 617422-2 Bed transfer PT/OT: Bed Active 2020-0 Jose Mobility/Tr deficit: Mobility/T 2-06 hector Feliciano shower/tub ransfer 11:30: PT 00 109042-5 Bed knowledge/s PT/OT: Bed Active 2020-0 Jose Mobility/Tr kill Mobility/T 2-06 hector Feliciano deficit: pt ransfer 11:30: PT 00 693364-1 Bed bed PT/OT: Bed Active 2020-0 Jose Mobility/Tr mobility Mobility/T 2-06 hector Feliciano deficit ransfer 11:30: PT 00 948766-7 Gait/Locomo gait PT/OT: Active 2020-0 Jose tion assistive Gait/Locom 2-06 Braden, problems device otion 11:30: PT present 00 818539-0 Gait/Locomo knowledge/s PT/OT: Active 2020-0 Jose tion kill Gait/Locom 2-06 Braden, problems deficit: pt otion 11:30: PT 00 164303-9 Gait/Locomo knowledge/s PT/OT: Active 2020-0 Jose tion kill Gait/Locom 2-06 Braden, problems deficit: cg otion 11:30: PT 00 483051-0 Gait/Locomo gait PT/OT: Active Jose tion deficit [...]
--- OUTSIDE RECORDS SUMMARY | 2019-12-08 15:35 | XMS REPORT ---
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, idiopathic idiopathic PT neuropathy, neuropathy, [id number] unspecified unspecified Essential Essential Diagnosis Active Jose (primary) (primary) 09-12 Braden, hypertensio hypertensio PT n n [id number] Primary Primary Diagnosis Active Jose osteoarthri osteoarthri 09-12 Braden, tis, tis, PT unspecified unspecified [id number] ankle and ankle and foot foot Osteoarthri Osteoarthri Diagnosis Active Jose tis of tis of 09-12 Braden, knee, knee, PT unspecified unspecified [id number] Generalized Generalized Diagnosis Active Jose anxiety anxiety 09-12 Braden, disorder disorder PT [id number] Pure Pure Diagnosis Active Jose hyperglycer hyperglycer Braden, idemia idemia PT 720889-4 Trigger Trigger Diagnosis Active Jose finger, finger, Braden, unspecified unspecified PT finger finger 131883-0 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, syndrome syndrome PT 084064-9 Unspecified Unspecified Diagnosis Active Jose sensorineur sensorineur Braden, 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 [id number] Other Other Diagnosis Active Jose amnesia amnesia Braden, PT 620322-3 Constipatio Constipatio Diagnosis Active Jose n, n, Braden, unspecified unspecified PT 047273-0 Anesthesia Anesthesia Diagnosis Active Jose of skin of skin Braden, PT 276885-7 Foreign Foreign Diagnosis Active Jose body in body in Braden, ear, ear, PT unspecified unspecified 586279-4 ear, ear, subsequent subsequent encounter encounter Other long Other long Diagnosis Active Jose term term Braden, (current) (current) PT drug drug 555135-9 therapy therapy Pain frequent Pain Mgmt Active 2020-0 Chantel pain 2-06 (Ira) 09:00: Reddy [id number] Respiratory dyspnea Respirator Active 2020-0 Chantel present y 2-06 (Ira) 09:00: Reddy [id number] Sensory impaired Sensory Active 2020-0 Chantel hearing 2-06 (Ira) 09:00: Reddy [id number] Integument skin Integument Active 2020-0 Chantel integrity 2-06 (Ira) risk 09:00: Reddy [id number] Elimination urinary Eliminatio Active 2020-0 Chantel incontinenc n 2-06 (Ira) e 09:00: Barry [id number] Neuro confusion Neuro/Emot Active 2020-0 Chantel present ion 2-06 (Ira) 09:00: Reddy [id number] Neuro anxiety Neuro/Emot Active 2020-0 Chantel present ion 2-06 (Ira) 09:00: Barry [id number] Neuro impaired Neuro/Emot Active 2020-0 Chantel decision-ma ion 2-06 (Ira) gogo 09:00: Barry [id number] Neuro memory Neuro/Emot Active 2020-0 Chantel deficit ion 2-06 (Ira) needing 09:00: Barry supervision 00 [id number] Activity ADL Activity Active 2020-0 Chantel assistance 2-06 (Ira) required 09:00: Reddy [id number] Activity self-care Activity Active 2020-0 Chantel deficit 2-06 (Ira) 09:00: Barry [id number] Safety fall risk Safety Active 2020-0 Chantel factor 2-06 (Ira) present 09:00: Reddy [id number] Safety risk for Safety Active 2020-0 Chantel hospitaliza 2-06 (Ira) tion 09:00: Reddy [id number] Safety can be left Safety Active 2020-0 Chantel alone for 2-06 (Ira) only short 09:00: Barry periods 00 [id number] Medication oral med Meds Active 2020-0 Chantel assistance 2-06 (Ira) required 09:00: Reddy [id number] Medication potential Meds Active 2020-0 Chantel clinically 2-06 (Ira) significant 09:00: Barry medication 00 [id number] issue Musculoskel transfer Musculoske Active 2020-0 Chantel etal assistance letal 2 (Ira) required 09:00: Reddy [id number] Musculoskel knowledge/s Musculoske Active 2020-0 Chantel etal kill letal 2 (Ira) deficit: pt 09:00: Reddy [id number] Musculoskel requires Musculoske Active 2020-0 Chantel etal human letal 2 (Ira) assist to 09:00: Reddy leave home [id number] Bed transfer PT/OT: Bed Active 2020-0 Jose Mobility/Tr deficit: Mobility/T 2-06 hector Feliciano sit/stand ransfer 11:30: PT 00 [id number] Bed transfer PT/OT: Bed Active 2020-0 Jose Mobility/Tr deficit: Mobility/T 2-06 hector Feliciano standing ransfer 11:30: PT pivot 00 [id number] Bed transfer PT/OT: Bed Active 2020-0 Jose Mobility/Tr deficit: Mobility/T 2-06 hector Feliciano toilet/comm ransfer 11:30: PT ode 00 [id number] Bed transfer PT/OT: Bed Active 2020-0 Jose Mobility/Tr deficit: Mobility/T 2-06 hector Feliciano shower/tub ransfer 11:30: PT 00 647404-3 Bed knowledge/s PT/OT: Bed Active 2020-0 Jose Mobility/Tr kill Mobility/T 2-06 hector Feliciano deficit: pt ransfer 11:30: PT 00 [id number] Bed bed PT/OT: Bed Active 2020-0 Jose Mobility/Tr mobility Mobility/T 2-06 hector Feliciano deficit ransfer 11:30: PT 00 [id number] Gait/Locomo gait PT/OT: Active 2020-0 Jose tion assistive Gait/Locom 2-06 Braden, problems device otion 11:30: PT present 00 [id number] Gait/Locomo knowledge/s PT/OT: Active 2020-0 Jose tion kill Gait/Locom 2-06 Braden, problems deficit: pt otion 11:30: PT 00 [id number] Gait/Locomo knowledge/s PT/OT: Active 2020-0 Jose tion kill Gait/Locom 2-06 Braden, problems deficit: cg otion 11:30: PT 00 [id number] Gait/Locomo gait PT/OT: Active Jose tion deficit [...]
--- OUTSIDE RECORDS SUMMARY | 2019-12-08 15:35 | XMS REPORT ---
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, idiopathic idiopathic PT neuropathy, neuropathy, 123861-8 unspecified unspecified Essential Essential Diagnosis Active Jose (primary) (primary) 09-12 Braden, hypertensio hypertensio PT n n [id number] Primary Primary Diagnosis Active Jose osteoarthri osteoarthri 09-12 Braden, tis, tis, PT unspecified unspecified [id number] ankle and ankle and foot foot Osteoarthri Osteoarthri Diagnosis Active Jose tis of tis of 09-12 Braden, knee, knee, PT unspecified unspecified [id number] Generalized Generalized Diagnosis Active Jose anxiety anxiety 09-12 Braden, disorder disorder PT [id number] Pure Pure Diagnosis Active Jose hyperglycer hyperglycer Braden, idemia idemia PT 035957-3 Trigger Trigger Diagnosis Active Jose finger, finger, Braden, unspecified unspecified PT finger finger 391719-8 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, syndrome syndrome PT [id number] Unspecified Unspecified Diagnosis Active Jose sensorineur sensorineur Braden, 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 101691-3 Other Other Diagnosis Active Jose amnesia amnesia Braden, PT 425257-5 Constipatio Constipatio Diagnosis Active Jose n, n, Braden, unspecified unspecified PT 162773-4 Anesthesia Anesthesia Diagnosis Active Jose of skin of skin Braden, PT 960742-2 Foreign Foreign Diagnosis Active Jose body in body in Braden, ear, ear, PT unspecified unspecified 960326-9 ear, ear, subsequent subsequent encounter encounter Other long Other long Diagnosis Active Jose term term Braden, (current) (current) PT drug drug 090086-9 therapy therapy Pain frequent Pain Mgmt Active 2020-0 Chantel pain 2-06 (Ira) 09:00: Reddy [id number] Respiratory dyspnea Respirator Active 2020-0 Chantel present y 2-06 (Ira) 09:00: Reddy [id number] Sensory impaired Sensory Active 2020-0 Chantel hearing 2-06 (Ira) 09:00: Reddy [id number] Integument skin Integument Active 2020-0 Chantel integrity 2-06 (Ira) risk 09:00: Reddy [id number] Elimination urinary Eliminatio Active 2020-0 Chantel incontinenc n 2-06 (Ira) e 09:00: Barry [id number] Neuro confusion Neuro/Emot Active 2020-0 Chantel present ion 2-06 (Ira) 09:00: Reddy [id number] Neuro anxiety Neuro/Emot Active 2020-0 Chantel present ion 2-06 (Ira) 09:00: Barry [id number] Neuro impaired Neuro/Emot Active 2020-0 Chantel decision-ma ion 2-06 (Ira) gogo 09:00: Barry [id number] Neuro memory Neuro/Emot Active 2020-0 Chantel deficit ion 2-06 (Ira) needing 09:00: Barry supervision 00 [id number] Activity ADL Activity Active 2020-0 Chantel assistance 2-06 (Ira) required 09:00: Reddy [id number] Activity self-care Activity Active 2020-0 Chantel deficit 2-06 (Ira) 09:00: Barry [id number] Safety fall risk Safety Active 2020-0 Chantel factor 2-06 (Ira) present 09:00: Reddy [id number] Safety risk for Safety Active 2020-0 Chantel hospitaliza 2-06 (Ira) tion 09:00: Reddy [id number] Safety can be left Safety Active 2020-0 Chantel alone for 2-06 (Ira) only short 09:00: Barry periods 00 [id number] Medication oral med Meds Active 2020-0 Chantel assistance 2-06 (Ira) required 09:00: Reddy [id number] Medication potential Meds Active 2020-0 Chantel clinically 2-06 (Ira) significant 09:00: Barry medication 00 [id number] issue Musculoskel transfer Musculoske Active 2020-0 Chantel etal assistance letal 2 (Ira) required 09:00: Reddy [id number] Musculoskel knowledge/s Musculoske Active 2020-0 Chantel etal kill letal 2 (Ira) deficit: pt 09:00: Reddy [id number] Musculoskel requires Musculoske Active 2020-0 Chantel etal human letal 2 (Ira) assist to 09:00: Reddy leave home [id number] Bed transfer PT/OT: Bed Active 2020-0 Jose Mobility/Tr deficit: Mobility/T 2-06 hector Feliciano sit/stand ransfer 11:30: PT 00 994164-3 Bed transfer PT/OT: Bed Active 2020-0 Jose Mobility/Tr deficit: Mobility/T 2-06 hector Feliciano standing ransfer 11:30: PT pivot 00 [id number] Bed transfer PT/OT: Bed Active 2020-0 Jose Mobility/Tr deficit: Mobility/T 2-06 hector Feliciano toilet/comm ransfer 11:30: PT ode 00 385792-1 Bed transfer PT/OT: Bed Active 2020-0 Jose Mobility/Tr deficit: Mobility/T 2-06 hector Feliciano shower/tub ransfer 11:30: PT 00 767212-5 Bed knowledge/s PT/OT: Bed Active 2020-0 Jose Mobility/Tr kill Mobility/T 2-06 hector Feliciano deficit: pt ransfer 11:30: PT 00 935881-7 Bed bed PT/OT: Bed Active 2020-0 Jose Mobility/Tr mobility Mobility/T 2-06 hector Feliciano deficit ransfer 11:30: PT 00 [id number] Gait/Locomo gait PT/OT: Active 2020-0 Jose tion assistive Gait/Locom 2-06 Braden, problems device otion 11:30: PT present 00 724107-8 Gait/Locomo knowledge/s PT/OT: Active 2020-0 Jose tion kill Gait/Locom 2-06 Braden, problems deficit: pt otion 11:30: PT 00 [id number] Gait/Locomo knowledge/s PT/OT: Active 2020-0 Jose tion kill Gait/Locom 2-06 Braden, problems deficit: cg otion 11:30: PT 00 415336-1 Gait/Locomo gait PT/OT: Active Jose tion deficit [...] Observation Time Observation Value Comments SYSTOLIC mm[Hg] 2019-10-18 18:10:43 120 mm[Hg] mm[Hg] Method: Sit SYSTOLIC mm[Hg] 2019-09-21 18:10:16 114 mm[Hg] mm[Hg] Method: Stand DIASTOLIC mm[Hg] 2019-10-18 18:10:43 74 mm[Hg] mm[Hg] Method: Sit DIASTOLIC mm[Hg] 2019-09-21 18:10:16 76 mm[Hg] mm[Hg] Method: Stand PULSE 2019-10-18 18:10:43 68 /min /min RESP RATE 2019-10-18 18:10:43 16 /min /min TEMP 2019-10-18 18:10:43 97.4 [degF] Procedures This patient has no known procedures. Results This patient has no known results.
--- NOTE | 2019-12-08 18:27 | ED ---
Complex/Multi-Sys Presentation - HPI Summary HPI Summary: 79 year old female presents with continued weakness for the past week. She fell last Tuesday and has not been the same since. She was seen here and admitted and discharged yesterday. Family was told she was stand assist but she need more assistance than that. Family states that they have to lift her completely to get her up. States she's been more confused than her normal. She has been having difficulty following simple instructions. Family noticed that her left hand addressing machine operator strength is decreased and her left leg seems to drag more. Strength is decreased compared to previous week. They noted a low-grade temperature yesterday. She states that she is not able to care for herself. Family states she is not safe at home. She offers no complaints at this time besides weakness. family also concerned that has wound behind ear on right that was not documented. also was having issue with no BM but has a BM when came in to hospital. she has history of Parkinson. - History Of Current Complaint Chief Complaint: EDWeakness Time Seen by Provider: 12/08/19 17:05 - Allergies/Home Medications Allergies/Adverse Reactions: Allergies Allergy/AdvReac Type Severity Reaction Status Date / Time No Known Allergies Allergy Verified 12/08/19 15:22 Home Medications: Home Medications Amitriptyline TAB* [Elavil TAB*] 20 mg PO BEDTIME 12/03/19 [History Confirmed ] Carbidopa/Levodop 25/100 MG(*) [Sinemet 25/100 TAB(*)] 1.5 tab PO TID 12/03/19 [ History Confirmed 12/08/19] Pregabalin 100 mg CAP (*) [Lyrica 100 mg CAP (*)] 100 mg PO BEDTIME 12/03/19 [ History Confirmed 12/08/19] Pregabalin [Lyrica] 75 mg PO BID 12/03/19 [History Confirmed 12/08/19] carBAMazepine TAB(*) [Tegretol TAB(*)] 200 mg PO BID 12/03/19 [History Confirmed 12/08/19] Cefdinir [Cefdinir 300 MG CAP] 300 mg PO BID 5 Days #10 capsule 12/05/19 [Rx Confirmed 12/08/19] Atenolol TAB* [Tenormin TAB* 25 MG] 25 mg PO BEDTIME 12/08/19 [History Confirmed 12/08/19] Bisacodyl EC TAB* [Dulcolax EC TAB*] 10 mg PO BID PRN 12/08/19 [History Confirmed 12/08/19] Carbidopa/Levodopa [Carbidopa-Levodopa 25-100 Tab] 1 tab PO BEDTIME 12/08/19 [ History Confirmed 12/08/19] amLODIPine TAB* [Norvasc 5 mg TAB*] 5 mg PO BEDTIME 12/08/19 [History Confirmed 12/08/19] PMH/Surg Hx/FS Hx/Imm Hx Endocrine/Hematology History: Denies: Hx Diabetes Cardiovascular History: Reports: Hx Hypertension Denies: Hx Pacemaker/ICD Respiratory History: Denies: Hx Asthma History: Denies: Hx Dialysis, Hx Renal Disease Musculoskeletal History: Reports: Hx Arthritis - BRUNO KNEES, Hx Bursitis - R KNEE Denies: Hx Osteoporosis Sensory History: Reports: Hx Contacts or Glasses Denies: Hx Hearing Aid Opthamlomology History: Reports: Hx Contacts or Glasses Neurological History: Reports: Other Neuro Impairments/Disorders - Parkinson's Psychiatric History: Denies: Hx Panic Disorder - Cancer History Hx Chemotherapy: No Hx Radiation Therapy: No - Surgical History Surgery Procedure, Year, and Place: 194 T[place]SI[place]Y [place]. 1962 [place]. 1987 TOTAL HYSTERECTOMY [facility]. 1989 CARPAL TUNNEL R WRIST [facility]. JUL 2012 CATARACT. 2004 GROWTH REMOVED FROM EYE LID [facility] Hx Anesthesia Reactions: No Infectious Disease History: No Infectious Disease History: Denies: Traveled Outside the [place] in Last 30 Days - Family History Known Family History: Positive: Hypertension - Social History Alcohol Use: Rare Hx Substance Use: No Substance Use Type: Reports: None Hx Tobacco Use: No Smoking Status (MU): Never Smoked Tobacco Review of Systems Negative: Fever Negative: Chest Pain Negative: Shortness Of Breath Positive: Weakness All Other Systems Reviewed And Are Negative: Yes Physical Exam Triage Information Reviewed: Yes Vital Signs On Initial Exam: Initial Vitals Temp Pulse Resp BP Pulse Ox 99.1 F 77 16 105/63 98 12/08/19 15:13 12/08/19 15:13 12/08/19 15:13 12/08/19 15:13 12/08/19 15:13 Vital Signs Reviewed: Yes Appearance: Positive: Well-Appearing Skin: Positive: Warm, Dry Head/Face: Positive: Normal Head/Face Inspection Eyes: Positive: Normal, EOMI, LATRICE, Conjunctiva Clear ENT: Positive: Normal ENT inspection, Pharynx normal, TMs normal Respiratory/Lung Sounds: Positive: Clear to Auscultation, Breath Sounds Present Cardiovascular: Positive: Normal, RRR Abdomen Description: Positive: Nontender, Soft Bowel Sounds: Positive: Present Musculoskeletal: Positive: Normal Neurological: Positive: Sensory/Motor Intact, Alert, Oriented to Person Place, Time, CN Intact II-III Psychiatric: Positive: Normal - [place] Coma Scale Best Eye Response: 4 - Spontaneous Best Motor Response: 6 - Obeys Commands Best Verbal Response: 5 - Oriented Coma Scale Total: 15 Procedures - Sedation Patient Received Moderate/Deep Sedation with Procedure: No Diagnostics - Vital Signs Vital Signs Temp Pulse Resp BP Pulse Ox 12/08/19 15:13 99.1 F 77 16 105/63 98 - Laboratory Result Diagrams: 12/08/19 18:33 12/08/19 18:33 Lab Statement: Any lab studies that have been ordered have been reviewed, and results considered in the medical decision making process. - EKG No standard instances Cardiac Rate: NL EKG Rhythm: Sinus Rhythm EKG Comparison: No Significant Change Summary of EKG Findings: sinus rhythm Re-Evaluation - Re-Evaluation First Eval Re-Evaluation Time: 21:50 Comment: feeling fine, discussed results with patient Complex Multi-Symp Course/Dx Course Of Treatment: 79 year old female presents with continued weakness for the past week. She fell last Tuesday and has not been the same since. She was seen here and admitted and discharged yesterday. Family was told she was stand assist but she need more assistance than that. Family states that they have to lift her completely to get her up. States she's been more confused than her normal. She has been having difficulty following simple instructions. Family noticed that her left hand addressing machine operator strength is decreased and her left leg seems to drag more. Strength is decreased compared to previous week. They noted a low- grade temperature yesterday. She states that she is not able to care for herself. Family states she is not safe at home. She offers no complaints at this time besides weakness. On exam decreased addressing machine operator strength noted bilaterally. Normal neuro exam. No neuro deficit noted. decreased strenght in bilateral legs. EKG shows sinus rhythm. had normal CT on tuesday. wbc normal. electrolytes normal. patient unable to ambulate without significiant amount of help so unsafe to be at home. urine shows uti. discussed with dr reis who will admit for PT consult - Diagnoses Differential Diagnoses/HQI/PQRI: Metabolic Abnormality, Urinary Tract Infection Provider Diagnoses: Weakness, Ambulatory dysfunction, UTI (urinary tract infection) - Critical Care Time Critical Care Statement: Critical care time is provided exclusive of any time spent performing procedures. Discharge ED - Sign-Out/Discharge Documenting (check all that apply): Patient Departure - Discharge Plan Condition: Stable Disposition: ADMITTED TO [facility] - Billing Disposition and Condition Condition: STABLE Disposition: Admitted to [facility]
[2019-12-08 18:43] LABS: ABS Basophils 0.1 10^3/ul (0-0.2); ABS Eosinophils 0.1 10^3/ul (0-0.6); ABS Lymphocytes 1.6 10^3/ul (1.0-4.8); ABS Monocytes 0.8 10^3/ul (0-0.8); ABS Neutrophils 4.2 10^3/ul (1.5-7.7); Eosinophil % 1.5 %; Hematocrit 38 % (35-47); Hemoglobin 13.1 g/dL (12.0-16.0); Lymphocyte % 23.7 %; Mean Corpuscular HGB Conc 34 g/dL (31-36); Mean Corpuscular Hemoglobin 33 pg (27-31); Mean Corpuscular Volume 97 fL (80-97); Mean Platelet Volume 7.7 fL (7.4-10.4); Nucleated Red Blood Cells % 0.1; Platelet Count 228 10^3/uL (150-450); Red Blood Count 3.94 10^6 /uL (3.70-4.87); Red Cell Distribution Width 14 % (10-15); White Blood Count 6.8 10^3/uL (3.5-10.8)
[2019-12-08 19:04] LABS: Albumin 3.7 g/dL (3.2-5.2); Albumin/Globulin Ratio 1.3 (1-3); BUN/Creatinine Ratio 17.3 (8-20); Calcium 8.9 mg/dL (8.6-10.3); EGFR Non-African American 74.4 (>60); Globulin 2.8 g/dL (2-4); Potassium 3.8 mmol/L (3.5-5.0); Total Bilirubin 0.5 mg/dL (0.2-1.0); Total Protein 6.5 g/dL (6.4-8.9)
[2019-12-08 21:16] LABS: Urine Appearance Clear; Urine Bilirubin Negative (Negative); Urine Blood Negative (Negative); Urine Color Yellow; Urine Glucose Negative (Negative); Urine Ketones Trace (Negative); Urine Nitrite Negative (Negative); Urine Protein Negative (Negative); Urine Specific Gravity 1.009 (1.010-1.030); Urine Urobilinogen Negative (Negative)
[2019-12-08 21:34] LABS: Urine Bacteria Absent (Absent); Urine Red Blood Cell Trace(0-2/hpf) (Absent); Urine Squamous Epithelial Cell Present (Absent); Urine Transitional Epithelial Present (Absent); Urine White Blood Cell 3+(>20/hpf) (Absent)
[2019-12-08] MEDS ORDERED: Acetaminophen TAB* 325 MG PO PRN (21:42)
[2019-12-08] MEDS ORDERED: Bisacodyl EC TAB* 5 MG PO PRN (21:46)
[2019-12-08] MEDS ORDERED: Cefdinir cap* 300 MG CAP PO ONE (21:47)
[2019-12-08 22:30] LABS: C Reactive Protein 35.1 mg/L (<8.01)
[2019-12-09] MEDS: Pregabalin 100 mg CAP (*) PO SCH ×2 (00:17→21:01)
[2019-12-09] MEDS: Cefdinir cap* 300 MG CAP PO SCH ×3 (00:17→20:57)
[2019-12-09] MEDS: Heparin VIAL(*) 5000 UNITS/ML VIAL (FIVE THOUSAND) SUBCUT SCH ×4 (00:18→21:04)
[2019-12-09] MEDS: Amitriptyline TAB* 10 MG PO SCH ×2 (00:18→20:58)
[2019-12-09] MEDS: Carbidopa/Levodop 25/100 MG TAB(*) PO SCH ×5 (00:18→21:02)
--- NOTE | 2019-12-09 00:29 | HP ---
CC: Dr. Nohelia Mcdonald* HISTORY AND PHYSICAL: DATE OF ADMISSION: 12/08/19 PRIMARY CARE PROVIDER: Dr. Nohelia Mcdonald. CHIEF COMPLAINT: Generalized weakness. HISTORY OF PRESENT ILLNESS: Snehal Pritchard is an 79-year-old female with a history of Parkinson's, who was hospitalized at our facility from 12/03/19 to for rhabdomyolysis status post fall and E. coli UTI. At discharge of the patient, Physical Therapy evaluated her, noted that the patient is 1 person assist and she can ambulate with a walker. The patient's daughter who was visiting from [place] Delano is physical therapist and she felt comfortable to stay with the patient for the next several days to continue with physical therapy. The patient was also set up with visiting nurse association. The patient was treated for the 2 days of her hospital stay with intravenous ceftriaxone and she was prescribed cefdinir for 5 days at the discharge. The patient stated that she went home, she felt okay. She was constipated, which did resolve today in the ED, when she had a bowel movement. Her appetite was good, but she felt generalized weakness. She felt that her legs are "like rubber." She also has neuropathic pain in bilateral feet that has gotten worse. She stated that the Lyrica that she uses for that makes it somewhat bearable, but after starting Lyrica in October 2019, she stated that her balance worsened. She continues to take Lyrica. She stated that she used medical marijuana, but she "did not like it." On evaluation in the ED, she was noted to be in need of 2 person assist. She was unable to wipe herself when she was having a bowel movement and she needed constant attention. At this point, her urinalysis is slightly abnormal, but she is still in process of getting her treatment for it. Apart from generalized decondition and weakness, I did not find anything else that could precipitate the patient's weakness. The patient herself admitted that it is probably worsening of her Parkinson's in addition to the conditioning. She was going to be placed on overnight observation with a diagnosis of ambulatory dysfunction. PAST MEDICAL HISTORY: 1. Parkinson's disease. 2. Hypertension. 3. History of episodes of confusion in the past and memory problems in the past. 4. Neuropathic bilateral lower extremity pain. PAST SURGICAL HISTORY: 1. Hysterectomy. 2. Carpal tunnel release. MEDICATIONS: At home include: 1. Cefdinir 300 mg twice a day, a continuation of her treatment for E. coli. 2. Dulcolax 10 mg b.i.d. p.r.n. 3. Tegretol 200 mg b.i.d. 4. Amlodipine 5 mg at bedtime. 5. Lyrica 75 mg b.i.d. and 100 mg at night. 6. Sinemet 25-100 one tablet at bedtime, one and half tablet 3 times a day. 7. Atenolol 25 mg at bedtime. 8. Amitriptyline 20 mg at bedtime. ALLERGIES: The patient stated that she was very disoriented from TRAMADOL. FAMILY HISTORY: The patient denies any history of heart disease, diabetes, and cancer in the family. SOCIAL HISTORY: The patient denies any tobacco, alcohol or drug use. She has lived alone until her admission on 12/03/19. Currently, her daughter, Delano is helping her, but her daughter is visiting from [place]. She at baseline ambulates with a rolling walker, now she needs 1 to 2 persons assist. She is a do not resuscitate and do not intubate. The patient's healthcare proxy is her son, Shamir Mulligan, second proxy is the patient's daughter, Delano Shultz. Please note that Delano is the person to notify about the patient's condition throughout her hospital stay. Delano's phone number [phone]. Please note that we did try calling Delano during the patient's admission. I am aware that the nurses and ED provider communicated with Delano prior to admission, but currently she was not available by phone. REVIEW OF SYSTEMS: Please history of present illness. All the remaining 12 systems were reviewed with the patient and were otherwise negative. PHYSICAL EXAMINATION GENERAL: The patient is a very pleasant 79-year-old female, who is in no acute distress. The patient is alert and oriented x3. VITAL SIGNS: Blood pressure 152/71, heart rate of 69 and regular, respiratory rate 16, oxygen saturation 97% on room air, temperature of 99.1. HEENT: Head is atraumatic, normocephalic. Eyes: Pupils are equal and reactive to light and accommodation. Oropharynx clear. Mucosa moist. NECK: Supple. No JVD. No bruits bilaterally. RESPIRATORY: Clear to auscultation bilaterally. CARDIOVASCULAR: Regular rate and rhythm with 1/6 systolic ejection murmur noted on auscultation of right upper sternal border. ABDOMEN: Soft, nontender. Bowel sounds present in all 4 quadrants. EXTREMITIES: There is +1 pitting pedal edema bilaterally. Pulses are +2 bilaterally. No clubbing or cyanosis. NEUROLOGIC: Speech clear. Cranial nerves II through XII grossly intact. Motor strength in bilateral lower extremity, the patient is able to raise her legs for approximately 3 seconds before them falling down to the bed. Bilateral hand cleaner furniture is 4+/5. There is no cogwheel rigidity or rigidity at all present during the evaluation. She appears to have generalized muscle weakness. SKIN: On evaluation of the skin, the patient has multiple abrasions covered with eschar after her fall on 12/03/19 and those are on bilateral knees, fairly extensive 10 cm in diameter overlying the entire both knees, covered with eschar to slight erythema under the surrounding skin. The erythema appears reactive to the trauma and not related to cellulitis. There are eschar covered areas on the dorsum of the patient's left foot, left ankle, right ankle, right side of the patient's knee, right elbow and left forearm. The patient also has multiple ecchymotic areas from venipuncture in bilateral forearms. DIAGNOSTIC STUDIES/LAB DATA: White blood cell count of 6.8, hemoglobin of 13.1 , hematocrit of 38, and platelets of 228. Sodium 138, potassium 3.8, chloride 103, carbon dioxide 28, BUN 13, creatinine 0.75. Liver function tests are unremarkable. Lactic acid was 1.3. Troponin of 0. C-reactive protein of 35. The patient's urinalysis showed findings that are much improved from prior with +2 esterase, +3 wbcs and no bacteria, no blood and specific gravity of 1.009. The patient's EKG showed a normal sinus rhythm with a heart rate of 69 beats per minute with no ST changes. ASSESSMENT AND PLAN: 1. Generalized muscle deconditioning and weakness. At this time, the patient is going to be placed on overnight observation with physical therapy and occupational therapy in the morning. I understand that from the discussion between the nurses and the patient's daughter Delano, the patient's family wish for the patient to go to short term rehabilitation. We asked manager social work to assist the patient and the patient's family in that. The patient stated that her daughter is planning to leave back home to [place] pretty soon and she otherwise leaves alone. Her son lives "down the street from her." I do not believe that she is going to have enough support at home. 2. For the patient's neuropathic pain, her Lyrica is going to be continued. I recommend for the patient to try CBD oil as an outpatient. 3. In regard to the patient's Parkinson's, Sinemet is going to be continued. The patient does not appear to have any rigidity at this point. 4. In regard of the patient's urinary tract infection, the patient is to continue her treatment with cefdinir for a couple of days to complete it. 5. For DVT prophylaxis, the patient will be on heparin subcutaneous. 6. The patient's code status is do not resuscitate and do no intubate and was confirmed with the patient at the time of admission. TIME SPENT: Approximately 65 minutes was spent on admission of this patient, more than half that time was spent [id number] with the patient during the interview and physical exam. [id number]/[facility] #: [id number] MTDD
[2019-12-09] MEDS: Pregabalin 25 mg CAP (*) PO SCH ×2 (10:09→20:59)
[2019-12-09] MEDS: carBAMazepine TAB(*) 200 MG PO SCH ×2 (10:10→21:03)
--- NOTE | 2019-12-09 14:03 | PN ---
Subjective Date of Service: 12/09/19 Interval History: Antibiotic treatment is continued in hospital, and we are awaiting urine cultures. She is feeling better now as long as she does not need to go farther than her bedside commode with assistance. She is mentating well, but complains of increasing weakness of all extremities, and increasing neuropathic pain of both feet. Her balance is poor and she needs two person assist to make it to her bedside commode. Objective Active Medications: Acetaminophen (Tylenol Tab*) 650 mg PO Q4H PRN PRN Reason: PAIN-MILD/TEMP >/= 100.4 Amitriptyline HCl (Elavil Tab*) 20 mg PO BEDTIME [facility] Last Admin: 12/09/19 00:18 Dose: 20 mg Amlodipine Besylate (Norvasc Tab*) 5 mg PO BEDTIME [facility] Atenolol (Tenormin Tab*) 25 mg PO BEDTIME [facility] Bisacodyl (Dulcolax Ec Tab*) 10 mg PO BID PRN PRN Reason: CONSTIPATION Last Admin: 12/09/19 00:17 Dose: 10 mg Carbamazepine (Tegretol Tab(*)) 200 mg PO BID [facility] Last Admin: 12/09/19 10:10 Dose: 200 mg Carbidopa/Levodopa (Sinemet 25/100 Tab(*)) 1.5 tab PO TID [facility] Last Admin: 12/09/19 10:10 Dose: 1.5 tab Carbidopa/Levodopa (Sinemet 25/100 Tab(*)) 1 tab PO BEDTIME [facility] Last Admin: 12/09/19 00:18 Dose: 1 tab Cefdinir (Cefdinir Cap*) 300 mg PO BID [facility] Stop: 12/10/19 23:59 Last Admin: 12/09/19 10:09 Dose: 300 mg Heparin Sodium (Porcine) (Heparin Vial(*)) 5,000 units SUBCUT Q8HR [facility] Last Admin: 12/09/19 05:01 Dose: 5,000 units Pregabalin (Lyrica 100 Mg Cap (*)) 100 mg PO BEDTIME [facility] Last Admin: 12/09/19 00:17 Dose: 100 mg Pregabalin (Lyrica 25 Mg Cap (*)) 75 mg PO BID [facility] Last Admin: 12/09/19 10:09 Dose: 75 mg Vital Signs - 8 hr 12/09/19 10:09 Respiratory 18 Rate Oxygen Devices in Use Now: None Appearance: well appearing, comfortable, but has many large bruises and eschars on body from falling. Ears/Nose/Mouth/Throat: NL Teeth, Lips, Gums, Mucous Membranes Moist Neck: NL Appearance and Movements; NL JVP Respiratory: Symmetrical Chest Expansion and Respiratory Effort, Clear to Auscultation Cardiovascular: NL Sounds; No Murmurs; No JVD, RRR, No Edema Abdominal: NL Sounds; No Tenderness; No Distention Extremities: No Edema Skin: - - large eschar on both knees. Several large eschars and bruises on both forearms. 2 cm bruise, tender, behind right ear Neurological: Alert and Oriented x 3, - - marked weakness of bilateral UE and LE with R a little worse than L Nutrition: Taking PO's Result Diagrams: 12/08/19 18:33 12/08/19 18:33 Assess/Plan/Problems-Billing 79 yo woman, pmhx Parkinson disease, recent severe falls x 2 due to worsening generalized weakness, altered mental status due to E Coli UTI. She had fallen six days ago, was admitted for AMS due to UTI, started treatment for UTI, improved and was then discharged home two days later, on December 04. She worsened again at home, developed increasing weakness and altered mental status, and sustained a severe fall with unknown down time and extensive bruising and eschars on both knees, and both arms and behind the right ear. - Patient Problems (1) UTI (urinary tract infection) Current Visit: Yes Status: Acute Onset Date: ~12/03/19 Comment: patient failed outpatient treatment earlier this week after improving initially, suffered reoccurence of altered mental status and severe fall due to increasing muscle weakness. Awaiting urine culture. Will continue current antibiotic treatment in hospital and get PT/OT consult. (2) Fall Current Visit: No Status: Acute Comment: -Arrived in hospital after second fall with unknown downtime. -PT/OT evaluation today. -Leg weakness possibly related to worsening parkinsons or UTI - Patient is unable to care for herself at home at this time. (3) Leg pain Current Visit: No Status: Acute Comment: -Chronic neuropathic pain, worsening -Continue lyrica (4) Parkinsons Current Visit: No Status: Acute Code(s): G20 - PARKINSON'S DISEASE SNOMED Code(s): 14402384 Comment: -Continue carbadopa/Levodopa (5) DVT prophylaxis Current Visit: No Status: Acute Code(s): Z29.9 - ENCOUNTER FOR PROPHYLACTIC MEASURES, UNSPECIFIED SNOMED Code(s): 953612178 Comment: Heparin 5000 units SQ q 8 hours (6) DNR (do not resuscitate) Current Visit: Yes Status: Acute Comment: MOLST on chart
[2019-12-09] MEDS ORDERED: amLODIPine TAB* 5 MG PO SCH (21:00)
[2019-12-09] MEDS ORDERED: Atenolol TAB* 25 MG PO SCH (21:00)
[2019-12-10] MEDS: Heparin VIAL(*) 5000 UNITS/ML VIAL (FIVE THOUSAND) SUBCUT SCH ×2 (05:50→14:23)
[2019-12-10] MEDS: Cefdinir cap* 300 MG CAP PO SCH (09:47)
[2019-12-10] MEDS: Pregabalin 25 mg CAP (*) PO SCH (09:47)
[2019-12-10] MEDS: carBAMazepine TAB(*) 200 MG PO SCH (09:48)
[2019-12-10] MEDS: Carbidopa/Levodop 25/100 MG TAB(*) PO SCH ×2 (09:48→14:19)
[2019-12-10 19:52] VITALS: BP 145/81
== END 2019-12-10 17:50 | disposition home or self-care (01) ==
LOC: ED 15:10 → MEDTELE 21:42
PROVIDERS: ADMIT Internal Medicine; ATTEND Internal Medicine
DX: R53.1 Weakness (principal); M79.605 Pain in left leg; M79.604 Pain in right leg; G20 Parkinson's disease; I10 Essential (primary) hypertension; R41.0 Disorientation, unspecified; N39.0 Urinary tract infection, site not specified; Z91.81 History of falling; Z66 Do not resuscitate; Z99.3 Dependence on wheelchair
CPT/HCPCS: 36415; 80053; 81003; 81015; 82550; 83605; 83735; 84484; 85025; 86140; 87086; 93005; 96372; 99285; A9270-GY; G0378; J1644